=== PATIENT | female | born 1965 | race Caucasian/White ===

== ENCOUNTER 2016-08-19 14:07 | Observation (INO) ==
[2016-08-19] MEDS ORDERED: Ipratropium/Albuterol Neb 3 ML IH ONE (15:14)
[2016-08-19] MEDS ORDERED: Ondansetron 4 MG/2 ML VIAL IVP ONE (15:29)
--- NOTE | 2016-08-19 15:29 | Emergency Department Note ---
Disposition Clinical Impression: COPD with acute exacerbation, Chest pain, rule out acute myocardial infarction Dyspnea Qualifiers: Dyspnea type: shortness of breath Qualified Code(s): R06.02 - Shortness of breath Disposition: Admitted As Inpatient Condition: Critical SOB HPI - General Chief Complaint: ED Shortness of Breath/Dyspnea Stated Complaint: Multiple Complaints Time Seen by Provider: 08/19/16 15:00 Source: patient Limitations: no limitations Nursing Notes Reviewed: Yes Vital Signs Reviewed: Yes - History of Present Illness Mrs. Hendricks, 50-year-old female, presents from home by POV with chief complaint of difficulty breathing as well as left upper quadrant abdomen pain. Difficulty breathing began 2-3 days ago. Described as worse with exertion. Associated with nausea, dry cough. As her cough is progressed, she is developed rib pain which worsens with cough. Abdominal pain described as left upper quadrant and she motions to the lower left anterior ribs. Denies fever, chills, vomiting, changes in bowel or bladder. She previously needed to do half to 3 L O2 via nasal cannula supplemental at night however has been without for the last 1.5-2 years without difficulty. She is a full regimen of inhalers. PMH: Hypertension, hyperlipidemia, diabetes, previous MS, COPD, irritable bowel syndrome. PCP: Itzel Jorgensen - Related Data Home Medications Medication Instructions Recorded Confirmed Albuterol Sulfate [Ventolin Hfa] 2 puff IH Q4H PRN 08/19/16 08/19/16 Amitriptyline [Elavil] 25 mg PO HS 08/19/16 08/19/16 Aspirin Enteric Coated [Aspirin EC] 81 mg PO DAILY 08/19/16 08/19/16 Azelastine 0.1% Nasal [place] 1 spray NS BID 08/19/16 08/19/16 [Astelin] BuPROPion SR (12 HR) [Wellbutrin 150 mg PO BID 08/19/16 08/19/16 SR] Carvedilol [Coreg] 25 mg PO DAILY 08/19/16 08/19/16 Cholecalciferol (Vitamin D3) 10,000 unit PO QWEEK 08/19/16 08/19/16 [Vitamin D3] Docusate [Colace] 100 mg PO DAILY PRN 08/19/16 08/19/16 FLUoxetine HCl [Prozac] 40 mg PO QAM 08/19/16 08/19/16 Furosemide [Lasix] 20 mg PO DAILY 08/19/16 08/19/16 Levocetirizine Hcl 5 mg PO DAILY 08/19/16 08/19/16 Melatonin 6 mg PO HS 08/19/16 08/19/16 Metoprolol [Lopressor] 25 mg PO BID 08/19/16 08/19/16 Montelukast [Singulair] 10 mg PO HS 08/19/16 08/19/16 Nefazodone HCl 100 mg PO DAILY 08/19/16 08/19/16 OLANZapine [Zyprexa] 5 mg PO DAILY 08/19/16 08/19/16 Omeprazole [PriLOSEC] 20 mg PO BID 08/19/16 08/19/16 Polyethylene Glycol 3350 17 gm PO DAILY PRN 08/19/16 08/19/16 Polyvinyl Alcohol [Artificial 1 drop OP TID PRN 08/19/16 08/19/16 Tears] Promethazine [Phenergan] 25 mg PO BID PRN 08/19/16 08/19/16 Ranitidine HCl [Acid Food Preparation Kitchen Aide] 150 mg PO HS 08/19/16 08/19/16 Tiotropium [Spiriva] 18 mcg IH 0700 08/19/16 08/19/16 Allergies Allergy/AdvReac Type Severity Reaction Status Date / Time Oxytetracycline Allergy Swelling Verified 08/19/16 14:44 [From Terramycin] of Lip/Tongue/Throat All systems ED: reviewed and negative except as stated. Constitutional: Reports: weakness. Denies: fever, chills Cardiovascular: Reports: dyspnea on exertion, edema. Denies: chest pain, palpitations Respiratory: Reports: cough, dyspnea, wheezes. Denies: hemoptysis, stridor Gastrointestinal: Reports: abdominal pain, nausea. Denies: vomiting, hematemesis, melena, hematochezia Genitourinary: Denies: urgency, dysuria Musculoskeletal: Denies: back pain, neck pain Neurological: Reports: headache, weakness. Denies: numbness, paresthesias, confusion, abnormal gait, vertigo Past Medical History - Past Medical History Medical history: Reports: COPD, hyperlipidemia, hypertension Psychiatric history: Reports: anxiety, depression, PTSD - Social History Smoking Status: Current every day smoker Smokeless Tobacco Status: No Alcohol use: Reports: none Drug use: Reports: none Physical Exam Vital signs reviewed: Patient afebrile. Cardiac and pulmonary was elevated but not tachycardic and not tachypneic. O2 saturation appropriate with some oxygen. General: Patient is alert, oriented, and in no acute distress. No conversational dyspnea on supplemental oxygen. HEENT: No facial asymmetry. Head is normocephalic and atraumatic. Trachea midline. Cardiovascular: Heart regular rate and rhythm without clicks, rubs, gallops, or murmurs. No JVD. PMI nondisplaced. Respiratory: Symmetric chest rise with good respiratory effort. Bilateral breath sounds are clear without wheezing, crackles, or rhonchi. Tenderness anteriorly over patient's left inferior ribs. Abdomen: Morbidly obese. Bowel sounds present normoactive x-4 quadrants. Abdomen is soft, nondistended, and mildly tender in LUQ at the costal margin. No organomegaly noted. Musculoskeletal: Muscle strength 5/5 and symmetric bilaterally in upper and lower extremities. Psych: Patient's affect is appropriate for situation. - General Limitations: no limitations General appearance: alert Course Course Narrative: Dyspnea - suspect acute exacerbation COPD Acute chest pain - rule out ACS. She is not improved with IV Zofran. Lung sounds had diffuse wheeze prior to doing abs and improves to mild scant wheeze after. Her sensation of dyspnea did not improve with DuoNeb's. Patient's laboratory work is unremarkable; specifically no leukocytosis, no lateral abnormalities, negative troponin, normal BNP. EKG is concerning for possible mild ST elevation in inferior leads with ST depression septal leads. Chest x-ray unremarkable. Patient agrees to come into the hospital for continued workup and evaluation for dyspnea. Vital Signs Temperature 98.7 F 08/19/16 14:42 Pulse Rate 96 08/19/16 14:42 Respiratory Rate 18 08/19/16 14:42 Blood Pressure 118/81 08/19/16 14:42 O2 Sat by Pulse Oximetry 95 08/19/16 14:42 Temperature 97.4 F L 08/21/16 07:05 Pulse Rate 79 08/21/16 07:05 Respiratory Rate 10 08/21/16 07:05 Blood Pressure 126/80 08/21/16 07:05 O2 Sat by Pulse Oximetry 95 08/21/16 07:40 Oxygen Delivery Oxygen Delivery Nasal Cannula Shortness of Breath/Dyspnea - Medical Records Medical records reviewed: Yes I reviewed the patient's medical records. - Lab Data Lab results reviewed: Yes I reviewed the patient's lab results. Result diagrams: 08/20/16 02:51 08/21/16 06:28 Lab Results 08/19/16 08/19/16 08/19/16 Range/Units 15:20 15:20 15:20 WBC 10.6 (4.3-11.1) K/mcL RBC 4.10 (3.82-4.97) M/mcL Hgb 12.1 (11.5-15.4) g/dL Hct 37.2 (35.3-44.9) % MCV 90.7 (83.0-100.0) fL MCH 29.5 (28.0-33.3) pg MCHC 32.5 (31.6-35.5) g/dL RDW 13.3 (11.5-14.5) % Plt Count 262 (140-400) K/mcL MPV 9.9 (9.4-12.4) fL Immature Gran % 0.6 (0-4) % Seg Neutrophils % 74.0 % Lymphocytes % 11.1 % Monocytes % 13.6 % Eosinophils % 0.5 % Basophils % 0.2 % Neutrophils # 7.9 (1.6-8.9) K/mcL Lymphocytes # 1.2 (0.6-4.6) K/mcL Monocytes # 1.5 H (0.0-1.3) K/mcL Eosinophils # 0.1 (0.0-0.6) K/mcL Basophils # 0.0 (0.0-0.2) K/mcL Sodium 140 (136-145) mEq/L Potassium 4.0 (3.5-4.5) mEq/L Chloride 105 (98-109) mEq/L Carbon Dioxide 25 (19-29) mEq/L BUN 11 (7-20) mg/dL Creatinine 0.89 (0.57-1.11) mg/dL Est GFR ( Amer) > 60 (> 60) Est GFR (Non-Af Amer) > 60 (> 60) BUN/Creatinine Ratio 12 (6-26) Glucose 118 H (70-99) mg/dL Calculated Osmolality 290 (280-300) Calcium 9.4 (8.6-10.8) mg/dL Troponin I 0.00 (0-0.03) ng/mL B-Natriuretic Peptide (0-100) pg/mL Amylase 30 (25-125) Units/L Lipase 15 (8-78) Units/L 08/19/16 Range/Units 15:20 WBC (4.3-11.1) K/mcL RBC (3.82-4.97) M/mcL Hgb (11.5-15.4) g/dL Hct (35.3-44.9) % MCV (83.0-100.0) fL MCH (28.0-33.3) pg MCHC (31.6-35.5) g/dL RDW (11.5-14.5) % Plt Count (140-400) K/mcL MPV (9.4-12.4) fL Immature Gran % (0-4) % Seg Neutrophils % % Lymphocytes % % Monocytes % % Eosinophils % % Basophils % % Neutrophils # (1.6-8.9) K/mcL Lymphocytes # (0.6-4.6) K/mcL Monocytes # (0.0-1.3) K/mcL Eosinophils # (0.0-0.6) K/mcL Basophils # (0.0-0.2) K/mcL Sodium (136-145) mEq/L Potassium (3.5-4.5) mEq/L Chloride (98-109) mEq/L Carbon Dioxide (19-29) mEq/L BUN (7-20) mg/dL Creatinine (0.57-1.11) mg/dL Est GFR ( Amer) (> 60) Est GFR (Non-Af Amer) (> 60) BUN/Creatinine Ratio (6-26) Glucose (70-99) mg/dL Calculated Osmolality (280-300) Calcium (8.6-10.8) mg/dL Troponin I (0-0.03) ng/mL B-Natriuretic Peptide 17 (0-100) pg/mL Amylase (25-125) Units/L Lipase (8-78) Units/L - Radiology Data Radiology results reviewed: Yes I reviewed the patient's radiology results. - EKG Data EKG attestation: Yes I reviewed and interpreted this EKG. EKG results narrative: EKG dated 08/19/16 at 14:52 pronounced sinus rhythm with rate of 98. Normal intervals. 172, QRS 27, QT/QTC [address] depression with T- wave inversion in precordial leads V2-V5. No previous EKG for comparison. Attestation Statement - Attestation Attestation: I, Alec Brothers, examined this patient and my medical decision-making was reviewed with the BRANCH CHIEF/PA/Advanced Practice Nurse/Resident Physician. I agree with the documented findings, disposition and treatment plan as described except to the extent set forth below. 50 yo female presents with concerns of shortness of breath and chest pain. Pt states symptoms have been worsening for the past few days but became significantly worse yesterday. Patient reports pain to the bilateral lower chest which is worse with coughing. Initial troponin negative. Patient has EKG which shows minimal ST depressions in the lateral leads. Patient will be admitted to the hospital for further care and evaluation of her chest pain and shortness of breath.
[2016-08-19 15:32] LABS: Basophils % 0.2 %; Eosinophils # 0.1 K/mcL (0.0-0.6); Eosinophils % 0.5 %; Hematocrit 37.2 % (35.3-44.9); Hemoglobin 12.1 g/dL (11.5-15.4); Immature Granulocytes % 0.6 % (0-4); Lymphocytes # 1.2 K/mcL (0.6-4.6); Lymphocytes % 11.1 %; Mean Corpuscular HGB Conc 32.5 g/dL (31.6-35.5); Mean Corpuscular Hemoglobin 29.5 pg (28.0-33.3); Mean Corpuscular Volume 90.7 fL (83.0-100.0); Mean Platelet Volume 9.9 fL (9.4-12.4); Monocytes # 1.5 K/mcL (0.0-1.3); Monocytes % 13.6 %; Neutrophils # 7.9 K/mcL (1.6-8.9); Platelet Count 262 K/mcL (140-400); Red Cell Distribution Width 13.3 % (11.5-14.5)
[2016-08-19 15:44] LABS: BUN/Creatinine Ratio 12 (6-26); Blood Urea Nitrogen 11 mg/dL (7-20); Calcium 9.4 mg/dL (8.6-10.8); Carbon Dioxide 25 mEq/L (19-29); Chloride 105 mEq/L (98-109); Glucose 118 mg/dL (70-99); Osmolality,Calculated 290 (280-300); Sodium 140 mEq/L (136-145); eGFR For African Americans > 60 (> 60); eGFR For Non-African Americans > 60 (> 60)
[2016-08-19] MEDS ORDERED: Aspirin 81 MG TAB.CHEW PO ONE (16:11)
[2016-08-19] MEDS ORDERED: methylPREDNISolone 125 MG/2 ML VIAL IVP ONE (16:12)
[2016-08-19] MEDS ORDERED: Naloxone 0.4 MG/ML INJ IVP PRN (18:02)
[2016-08-19] MEDS ORDERED: *HR* Heparin 5,000 UNIT/ML VIAL IVP ONE (18:15)
[2016-08-19] MEDS ORDERED: *HR* Heparin 5,000 UNIT/ML VIAL IVP PRN ×2 (18:15)
[2016-08-19] MEDS ORDERED: Heparin 25,000 UNIT/500 ML D5W 25,000 UNIT/500 ML MLS IVC SCH (18:15)
--- NOTE | 2016-08-19 18:30 | Internal Med History&Physical ---
Date of Encounter: 08/19/16 Time of Encounter: 18:27 Assessment and Plan (1) Dyspnea Current visit: Yes Status: Acute Patient reporting increasing shortness of breath over the last few days. She reports feeling like she has increased swelling in her extremities as well. CXR shows no acute cardiopulmonary process. EKG shows mild ST elevation in inferior leads. troponin 0.00, BNP 17. Trace BLE edema. Expiratory wheeze. Patient reports feeling somewhat better after duoneb treatment in ED. COPD exacerbation vs. CHF vs. ACS. Lasix 40mg IVP daily Repeat EKG D-dimer pending, if elevated will get CTA Duoneb treatments QID Heparin drip for possible ACS given ST changes on EKG Cardiology consult, discussed with Dr. Renee. echocardiogram in the morning. Qualifiers: Dyspnea type: shortness of breath Qualified Code(s): R06.02 - Shortness of breath (2) COPD with acute exacerbation Current visit: Yes Status: Acute Patient with COPD. Increased shortness of breath over the last several days. CXR shows no acute cardiopulmonary disease. Expiratory wheeze on exam. 125mg of solumedrol given in ED Duoneb treatments QID continue home dose of spiriva and singulair. titrate oxygen to maintain O2 saturation > 92% (3) Chest pain, rule out acute myocardial infarction Current visit: Yes Status: Acute Patient with increasing shortness of breath, chest pain since yesterday. EKG shows ST changes. Cardiology consulted, discussed with Dr. Renee. Will get another stat EKG and send EKG images to Dr. Renee for her review. Heparin drip for ACS serial troponins continuous radio message router. echocardiogram in the morning. (4) Smoker Current visit: Yes Status: Acute Patient trying to quit, down to 1 cigarette daily. Offered encouragement. smoking cessation education ordered. (5) DVT prophylaxis Current visit: Yes Status: Acute anti-embolic stockings heparin drip for suspected ACS. Internal Medicine - H&P: HPI Chief complaint: shortness of breath, chest pain Admitted From: Emergency Dept Plans for Post Hospital Care: Home History of present illness: Ms. Hendricks is a 50 year old female with hypertension, hyperlipidemia, COPD, IBS , sleep apnea, who presented to the emergency department today with complaints of shortness of breath and chest pain. Patient reports shortness of breath she started noticing about 3 days ago along with increased swelling in her extremities. She reports that chest pain developed yesterday and is constant pressure sensation that sometimes gets worse and gets better but never goes away. She has occasional numbness and tingling in her fingers, and she reports generalized weakness in her extremities. She also reports fever, chills, sweats , nausea, vomiting. She reports left upper quadrant pain she describes as crawling burning, and is tender to palpation. She reports occasional headaches , lightheadedness and palpitations. Evaluation in emergency department included an EKG which showed slight ST elevation in the inferior leads and ST depression in anterior leads. Troponin was negative at 0.0, BNP was normal at 17. D-dimer was ordered and is pending. Chest x-ray showed no acute cardiopulmonary process. She was given DuoNeb treatment and reports feeling little better. On exam, patient is alert and oriented, in no acute distress. Heart has regular rate and rhythm, lungs have slight expiratory wheeze. Past Med Surg Social Fam HX - Past Medical History Medical history: COPD, GERD, hyperlipidemia, hypertension Psychiatric history: anxiety, depression, PTSD - Past Surgical History Surgical History: , hysterectomy - Social History Smoking Status: Former smoker Smokeless Tobacco Status: No Alcohol use: none (previous heavy use, clean since 01/2016) Drug use: none (history of drug abuse - sober since 01/2016) - Family History Mother Living Status: Age at : 67 Cause of : COPD Hx Family Respiratory Disorders: Yes Father Living Status: Age at : 54 Cause of : GA Hx Family Cardiac Disorders: Yes Internal Medicine - H&P: Meds Albuterol Sulfate [Ventolin Hfa] 2 puff IH Q4H PRN 08/19/16 [History] Amitriptyline [Elavil] 25 mg PO HS 08/19/16 [History] Aspirin Enteric Coated [Aspirin EC] 81 mg PO DAILY 08/19/16 [History] Azelastine 0.1% Nasal [place] [Astelin] 1 spray NS BID 08/19/16 [History] BuPROPion SR (12 HR) [Wellbutrin SR] 150 mg PO BID 08/19/16 [History] Carvedilol [Coreg] 25 mg PO DAILY 08/19/16 [History] Cholecalciferol (Vitamin D3) [Vitamin D3] 10,000 unit PO QWEEK 08/19/16 [History ] Docusate [Colace] 100 mg PO DAILY PRN 08/19/16 [History] FLUoxetine HCl [Prozac] 40 mg PO QAM 08/19/16 [History] Furosemide [Lasix] 20 mg PO DAILY 08/19/16 [History] Levocetirizine Hcl 5 mg PO DAILY 08/19/16 [History] Melatonin 6 mg PO HS 08/19/16 [History] Metoprolol [Lopressor] 25 mg PO BID 08/19/16 [History] Montelukast [Singulair] 10 mg PO HS 08/19/16 [History] Nefazodone HCl 100 mg PO DAILY 08/19/16 [History] OLANZapine [Zyprexa] 5 mg PO DAILY 08/19/16 [History] Omeprazole [PriLOSEC] 20 mg PO BID 08/19/16 [History] Polyethylene Glycol 3350 17 gm PO DAILY PRN 08/19/16 [History] Polyvinyl Alcohol [Artificial Tears] 1 drop OP TID PRN 08/19/16 [History] Promethazine [Phenergan] 25 mg PO BID PRN 08/19/16 [History] Ranitidine HCl [Acid Review Nurse] 150 mg PO HS 08/19/16 [History] Tiotropium [Spiriva] 18 mcg IH 0700 08/19/16 [History] Allergies Oxytetracycline [From Terramycin] Allergy (Verified 08/19/16 14:44) Swelling of Lip/Tongue/Throat All Systems PM: A 10-system review of systems was performed and is negative for pertinent findings except as documented above in the HPI. - Constitutional Constitutional: chills, fever(s), night sweats - EENT Eyes: no change in vision, no discharge, no pain, no photophobia Ears: no ear discharge, no ear pain, no tinnitus Nose, mouth and throat: no dysphagia, no nasal discharge, no neck pain, no sore throat - Cardiovascular Cardiovascular ROS IM: chest pain, dyspnea, lightheadedness, palpitations, no diaphoresis, no syncope - Respiratory Respiratory: dyspnea, wheezing, no cough, no excessive phlegm production - Gastrointestinal Gastrointestinal: nausea, vomiting, no abdominal pain, no diarrhea, no hematemesis, no hematochezia, no melena - Genitourinary Genitourinary: no change in urinary stream, no dysuria, no flank pain, no hematuria - Musculoskeletal Musculoskeletal ROS IM: numbness (on and off in fingers), tingling (on and off in fingers) - Integumentary Integumentary IM: no rash, no unusual bruising - Neurological Neurological ROS: no confusion, no convulsions, no focal weakness, no numbness, no tingling, no tremor(s) - Hematologic/Lymphatic Hematologic/Lymphatic: no easy bruising - Constitutional Vitals: Temp Pulse Resp BP Pulse Ox 98.0 F 93 18 125/85 93 08/19/16 17:39 08/19/16 17:39 08/19/16 17:39 08/19/16 17:39 08/19/16 17:39 General appearance: Present: A&O X 3, pleasant, no acute distress - Head Head exam: Present: atraumatic, normocephalic - Eye Eye exam: Present: PERRL, conjuntiva pink, sclera anicteric Pupils: Present: PERRL - Neck Neck exam general surgery: Present: supple, trachea midline. Absent: lymphadenopathy - Respiratory Respiratory exam: Present: wheezes (expiratory). Absent: accessory muscle use, rales, rhonchi - Cardiovascular Cardiovascular exam: Present: RRR, +S1, +S2. Absent: diastolic murmur, gallop, rubs, systolic murmur - GI/Abdominal GI/Abdominal exam: Present: normal bowel sounds, soft, no peritoneal signs. Absent: distended, tenderness - Extremities Exam Extremities exam: Present: pedal edema (trace BLE), warm, radial pulses palpable and symetrical. Absent: calf tenderness, cyanotic - Neurological Exam Neurological exam: Present: CN II-XII intact, oriented X3, no focal deficits. Absent: facial droop, speech deficit - Skin Skin exam: Present: dry, intact, rash (LUQ) Internal Med - H&P Results - Labs CBC & Chem 7: 08/19/16 15:20 08/19/16 15:20 Labs: All Lab Results (24 Hours) 08/19/16 08/19/16 08/19/16 Range/Units 15:20 15:20 15:20 WBC 10.6 (4.3-11.1) K/mcL RBC 4.10 (3.82-4.97) M/mcL Hgb 12.1 (11.5-15.4) g/dL Hct 37.2 (35.3-44.9) % MCV 90.7 (83.0-100.0) fL MCH 29.5 (28.0-33.3) pg MCHC 32.5 (31.6-35.5) g/dL RDW 13.3 (11.5-14.5) % Plt Count 262 (140-400) K/mcL MPV 9.9 (9.4-12.4) fL Immature Gran % 0.6 (0-4) % Seg Neutrophils % 74.0 % Lymphocytes % 11.1 % Monocytes % 13.6 % Eosinophils % 0.5 % Basophils % 0.2 % Neutrophils # 7.9 (1.6-8.9) K/mcL Lymphocytes # 1.2 (0.6-4.6) K/mcL Monocytes # 1.5 H (0.0-1.3) K/mcL Eosinophils # 0.1 (0.0-0.6) K/mcL Basophils # 0.0 (0.0-0.2) K/mcL Sodium 140 (136-145) mEq/L Potassium 4.0 (3.5-4.5) mEq/L Chloride 105 (98-109) mEq/L Carbon Dioxide 25 (19-29) mEq/L BUN 11 (7-20) mg/dL Creatinine 0.89 (0.57-1.11) mg/dL Est GFR ( Amer) > 60 (> 60) Est GFR (Non-Af Amer) > 60 (> 60) BUN/Creatinine Ratio 12 (6-26) Glucose 118 H (70-99) mg/dL Calculated Osmolality 290 (280-300) Calcium 9.4 (8.6-10.8) mg/dL Troponin I 0.00 (0-0.03) ng/mL B-Natriuretic Peptide (0-100) pg/mL 08/19/ Range/Units 15:20 WBC (4.3-11.1) K/mcL RBC (3.82-4.97) M/mcL Hgb (11.5-15.4) g/dL Hct (35.3-44.9) % MCV (83.0-100.0) fL MCH (28.0-33.3) pg MCHC (31.6-35.5) g/dL RDW (11.5-14.5) % Plt Count (140-400) K/mcL MPV (9.4-12.4) fL Immature Gran % (0-4) % Seg Neutrophils % % Lymphocytes % % Monocytes % % Eosinophils % % Basophils % % Neutrophils # (1.6-8.9) K/mcL Lymphocytes # (0.6-4.6) K/mcL Monocytes # (0.0-1.3) K/mcL Eosinophils # (0.0-0.6) K/mcL Basophils # (0.0-0.2) K/mcL Sodium (136-145) mEq/L Potassium (3.5-4.5) mEq/L Chloride (98-109) mEq/L Carbon Dioxide (19-29) mEq/L BUN (7-20) mg/dL Creatinine (0.57-1.11) mg/dL Est GFR ( Amer) (> 60) Est GFR (Non-Af Amer) (> 60) BUN/Creatinine Ratio (6-26) Glucose (70-99) mg/dL Calculated Osmolality (280-300) Calcium (8.6-10.8) mg/dL Troponin I (0-0.03) ng/mL B-Natriuretic Peptide 17 (0-100) pg/mL - Diagnostic Studies Chest x-ray Additional comments: Chest X-Ray 08/19/16 15:14 IMPRESSION: No acute cardiopulmonary process. D/ / 08/19/2016 16:08:29 Pernell Pitt MD / [email or web address] Interpreting Provider: Pernell Pitt MD
[2016-08-19] MEDS ORDERED: traMADol 50 MG TABLET PO PRN (18:37)
[2016-08-19] MEDS ORDERED: Acetaminophen 325 MG TABLET PO PRN (18:37)
--- NOTE | 2016-08-19 18:55 | Event Note ---
Date of Encounter: 08/19/16 Time of Encounter: 18:21 Patient seen and examined with nurse practitioner. Mild COPD exacerbation and diastolic CHF. We will get IV Lasix [id number] nebulizer treatments. Electrocardiogram shows subtle ST segment elevation in the inferior leads and ST segment depression in V2 to V-6. No prior EKG to compare. She had a coronary angiography 3 years ago that she showed no occlusive disease. Will rule out pulmonary embolism. Cardiology consultation
[2016-08-19] MEDS: Furosemide 40 MG/4 ML VIAL IVP SCH (18:57)
[2016-08-19] MEDS: Cholecalciferol (D-3) 1,000 UNIT TABLET PO SCH (18:57)
[2016-08-19 18:59] LABS: Amylase 30 Units/L (25-125); Lipase 15 Units/L (8-78)
--- NOTE | 2016-08-19 19:27 | Event Note ---
Date of Encounter: 08/19/16 Time of Encounter: 19:25 [address]ed E[address] results [address] Renee in cardiology. She stated that given the EKG shows Q waves in III and AvF, the RI is of indeterminate age, and not acute. Also, as there are no dynamic changes between the EKG at 14:50 and at 18 :56, and the troponin is negative, she does not feel this represents an acute RI.
[2016-08-19 19:35] LABS: INR 1.1; Prothrombin Time 12.1 Seconds (9.4-12.1)
[2016-08-19 19:38] LABS: Activated Partial Thrombo Time 36.3 Seconds (26.0-36.0)
[2016-08-19] MEDS: Famotidine 20 MG TABLET PO SCH (19:55)
[2016-08-19] MEDS: BuPROPion SR (12 HR) 150 MG TABLET PO SCH (19:55)
[2016-08-19] MEDS: Melatonin 3 MG TABLET PO SCH (19:55)
[2016-08-19] MEDS: Ipratropium/Albuterol Neb 3 ML IH SCH ×2 (20:11→23:18)
[2016-08-19] MEDS ORDERED: Nitroglycerin 0.4 MG TAB.SUBL SL PRN (20:18)
[2016-08-19] MEDS: *HR* Morphine 2 MG/ML SYRINGE IVP PRN (20:58)
[2016-08-19] MEDS: *HR* HYDROcodone/Acet 5/325 mg TABLET PO PRN (22:03)
--- NOTE | 2016-08-20 00:33 | Event Note ---
Date of Encounter: 08/20/16 Time of Encounter: 00:31 CTA ordered for elevated D-dimer. CTA negative for PE, but did show LLL airspace disease consistent with pneumonia. Azithromycin and Rocephin started.
[2016-08-20] MEDS: *HR* Morphine 2 MG/ML SYRINGE IVP PRN ×6 (01:21→22:04)
[2016-08-20] MEDS: Azithromycin 500 MG in D5% in Water 250 ML IVPB SCH (01:53)
[2016-08-20 02:56] LABS: Basophils % 0.1 %; Hematocrit 36.9 % (35.3-44.9); Hemoglobin 11.9 g/dL (11.5-15.4); Immature Granulocytes % 0.5 % (0-4); Lymphocytes # 0.5 K/mcL (0.6-4.6); Mean Corpuscular HGB Conc 32.2 g/dL (31.6-35.5); Mean Corpuscular Hemoglobin 29.4 pg (28.0-33.3); Mean Corpuscular Volume 91.1 fL (83.0-100.0); Mean Platelet Volume 9.9 fL (9.4-12.4); Monocytes # 0.2 K/mcL (0.0-1.3); Monocytes % 2.4 %; Neutrophils # 6.9 K/mcL (1.6-8.9); Platelet Count 231 K/mcL (140-400); Red Blood Count 4.05 M/mcL (3.82-4.97); Red Cell Distribution Width 13.2 % (11.5-14.5)
[2016-08-20 03:10] LABS: BUN/Creatinine Ratio 14 (6-26); Blood Urea Nitrogen 14 mg/dL (7-20); Calcium 9.9 mg/dL (8.6-10.8); Carbon Dioxide 23 mEq/L (19-29); Chloride 100 mEq/L (98-109); Glucose 223 mg/dL (70-99); Osmolality,Calculated 289 (280-300); Sodium 136 mEq/L (136-145); eGFR For African Americans > 60 (> 60); eGFR For Non-African Americans > 60 (> 60)
[2016-08-20] MEDS: Ipratropium/Albuterol Neb 3 ML IH SCH ×4 (04:32→22:21)
[2016-08-20] MEDS: BuPROPion SR (12 HR) 150 MG TABLET PO SCH ×2 (07:49→21:15)
[2016-08-20] MEDS: *HR* HYDROcodone/Acet 5/325 mg TABLET PO PRN ×3 (07:49→23:15)
[2016-08-20] MEDS: Cholecalciferol (D-3) 1,000 UNIT TABLET PO SCH (07:50)
[2016-08-20] MEDS: FLUoxetine 20 MG CAPSULE PO SCH (07:50)
[2016-08-20] MEDS: Aspirin Enteric Coated 81 MG Tablet PO SCH (07:50)
[2016-08-20] MEDS: Tiotropium 18 MCG inhalation IH SCH (08:01)
[2016-08-20] MEDS ORDERED: Perflutren Lipid Microsphere 1.3 ML in 0.9 % Sodium Chloride 8.7 ML IVP ONE (09:07)
[2016-08-20] MEDS: Furosemide 40 MG/4 ML VIAL IVP SCH (10:24)
--- NOTE | 2016-08-20 15:18 | ECHO - Doppler Report ---
Echocardiogram Name: Noni Hendricks Date of Study: 08/20/2016 Date: 1965 Ht: 64.0 in Medical Record#: [id number] Age: 50 Wt: 242.0 lb Gender: Female BSA: 2.12 Order #: [id number] Location: [facility] Room #: 3B37 Reading Physician: Fredo Taylor MD, [facility] Clinic Mgr: Zan Garber Ordering Physician: Jimena Kumar CNP Primary Physician: Go Jorgensen DO Indications: Chest pain, Shortness of breath Impressions: Normal LV systolic function, LVEF 65%. Normal right ventricular size and function. No evidence of pulmonary hypertension. No significant valvular dysfunction. Left Ventricular Wall Motion: Rest Echo Findings All wall segments showed normal motion. Findings: Study Quality * Suboptimal echo windows. ECG Findings * Normal sinus rhythm. Left Ventricle * Normal LV systolic function, LVEF 65%. * Normal LV chamber size and wall thickness. * Indeterminate diastolic function. Right Ventricle * Normal right ventricular size and function. Left Atrium * Normal left atrial size. Right Atrium * Normal right atrial size. Aorta * Normally sized aortic root. Pericardium * There is no pericardial effusion present. IVC * The IVC was not visualized. Aortic Valve * Aortic valve not well visualized. * No aortic stenosis. * No aortic regurgitation. Mitral Valve * Normal mitral valve structure. * No mitral stenosis. * Trace mitral regurgitation. Tricuspid Valve * Tricuspid valve not well visualized. * No tricuspid stenosis. * Trace tricuspid regurgitation. * No evidence of pulmonary hypertension. Pulmonic Valve * Pulmonic valve not well visualized. * No pulmonic stenosis. * No pulmonic regurgitation. History Hypertension Diabetes Hypercholesteremia Years 20 Packs 1 Family History of CAD Measurements: BP: 133/ 94 2D Normal Values RVIDd: 3.00 cm IVSd: 1.00 cm 0.6 - 1.0 cm LVIDd: 4.30 cm 3.7 - 5.6 cm LVPWd: .80 cm 0.6 - 1.1 cm LVIDs: 2.50 cm 1.5 - 3.6 cm AO: 2.60 cm < 4.0 cm LA volume: 36 Tricuspid Valve TV Regurg Peak Grad: 22.00mmHg TV Regurg Peak [place]: 2.36m/sec Updated by Fredo Taylor MD, [facility] on 08/20/2016 3:11:28 PM electronically signed on 08/20/2016 3:11:52 PM with status of Final Wall Motion Max: 1=Normal, 2=Hypokinesis, 3=Akinesis, 4=Dyskinesis, 5=Aneurysmal, 6=Hyperkinetic, X=Not Visualized (Blank)=Missing
--- NOTE | 2016-08-20 16:52 | Electrocardiograph Report ---
[address] [place] [address] Test Date: 2016-08-19 Pat Name: Noni Hendricks Department: 103 Room: 3B37 Gender: F Costume Specialist: TIANA : 1965 Requested By: Alec Brothers Order Number: [id number] Reading MD: Rowdy Gupta MD Measurements Intervals [place] Rate: 98 P: 28 MN: 172 QRS: 40 QRSD: 97 T: 77 QT: 340 QTc: 395 Interpretive Statements SINUS RHYTHM PROBABLE INFERIOR MYOCARDIAL INFARCTION, PROBABLY OLD Electronically Signed On 08-20-2016 16:51:12 EDT by Rowdy Gupta MD
--- NOTE | 2016-08-20 17:01 | Electrocardiograph Report ---
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
--- NOTE | 2016-08-20 17:22 | Internal Med Progress Note ---
Date of Encounter: 08/20/16 Time of Encounter: 16:00 - Assessment and plan (1) COPD with acute exacerbation Current Visit: Yes Status: Acute Assessment and plan: Examination more consistent with fluid overload and diastolic heart failure exacerbation however patient has few, scattered wheezes. Continue breathing treatments. Elevated d-dimer noted however CTA unremarkable and essentially ruled out a PE. CTA also revealed left lower lobe airspace disease consistent with pneumonia. We will continue azithromycin and ceftriaxone. Patient is tolerating room air. No indication for mucolytics or steroids at this time. ITS Impressions Chest X-Ray 08/19/16 15:14 IMPRESSION: No acute cardiopulmonary process. D/ / 08/19/2016 16:08:29 Pernell Pitt MD / [email or web address] Interpreting Provider: Pernell Pitt MD Chest CTA 08/19/16 21:50 IMPRESSION: No evidence of a pulmonary embolus. Airspace disease in the superior segment of the left lower lobe consistent with pneumonia. This disease is new from 08/02/2016. Few mildly prominent left hilar lymph nodes are likely reactive. D/ / Donald Drummond MD / Donald Drummond MD Interpreting Provider: Donald Drummond MD (2) Diastolic heart failure Current Visit: Yes Status: Chronic Assessment and plan: Acute on chronic diastolic heart failure with preserved ejection fraction. Patient is on furosemide at home, diuresing with IV furosemide. Pedal edema has lessened and is currently 1+ pitting bilaterally. Her shortness of breath is also improving but she is not yet back to her baseline. She is tolerating room air well. We will continue to diurese and likely discharge tomorrow pending clinical outcomes. Echocardiogram impressions: Normal LV systolic function, LVEF 65%. Normal right ventricular size and function. No evidence of pulmonary hypertension. No significant valvular dysfunction. (3) CAP (community acquired pneumonia) Current Visit: Yes Status: Acute Assessment and plan: CTA consistent with left lower lobe pneumonia. No recent admissions. Likely community-acquired of unknown etiology. Continue azithromycin and ceftriaxone. (4) Chest pain, rule out acute myocardial infarction Current Visit: Yes Status: Resolved Assessment and plan: Patient denies chest pain. ECGs were reviewed per cardiology-no acute processes and low suspicion for acute coronary syndrome. Troponin negative 3. (5) Smoker Current Visit: Yes Status: Resolved Assessment and plan: She states she stopped smoking last year. (6) DVT prophylaxis Current Visit: Yes Status: Acute Assessment and plan: Subcutaneous heparin (7) Morbid obesity with BMI of 40.0-44.9, adult Current Visit: Yes Status: Chronic Assessment and plan: Patient stating she has gained a lot of weight since she stopped smoking and doing drugs last year. She is requesting for references regarding physical therapy or any other exercise modalities that her insurance would cover, we will bring manager social responsibility on board for resources. - Subjective Interval history: Patient seen and examined. On examination, patient sitting upright in bed watching television. Patient stating her shortness of breath has improved. She states the swelling her legs is also improved. She states she is not back to her baseline yet but is feeling better. She states she is eating well. She has a lot of concerns and questions regarding possible heart failure diagnosis. - Constitutional Vitals: Temp Pulse Resp BP Pulse Ox 97.5 F L 86 12 128/91 95 08/20/16 15:34 08/20/16 15:34 08/20/16 16:36 08/20/16 15:34 08/20/16 16:36 General appearance: Present: A&O X 3, morbidly obese, pleasant, no acute distress, answers questions appropriately - Head Head exam: Present: atraumatic, normocephalic - Eye Eye exam: Present: PERRL, conjuntiva pink, sclera anicteric Pupils: Present: PERRL - Neck Neck exam general surgery: Present: supple, trachea midline. Absent: lymphadenopathy - Respiratory Respiratory exam: Present: decreased breath sounds, rhonchi (Few, scattered). Absent: accessory muscle use, rales, respiratory distress, wheezes - Cardiovascular Cardiovascular exam: Present: RRR, +S1, +S2. Absent: diastolic murmur, gallop, rubs, systolic murmur - GI/Abdominal GI/Abdominal exam: Present: normal bowel sounds, soft, no peritoneal signs. Absent: distended, tenderness - Extremities Exam Extremities exam: Present: pedal edema (1+ pitting bilaterally), warm, radial pulses palpable and symetrical. Absent: calf tenderness, cyanotic - Neurological Exam Neurological exam: Present: alert, CN II-XII intact, normal gait, oriented X3, no focal deficits, strengths equal and symetr throughout. Absent: pronater drift, facial droop, speech deficit - Skin Skin exam: Present: dry, intact, normal color, warm Internal Medicine: Result - Labs CBC & Chem 7: 08/20/16 02:51 08/20/16 02:51 Labs: Short CBC 08/20/16 Range/Units 02:51 WBC 7.6 (4.3-11.1) K/mcL Hgb 11.9 (11.5-15.4) g/dL Hct 36.9 (35.3-44.9) % Plt Count 231 (140-400) K/mcL Neutrophils # 6.9 (1.6-8.9) K/mcL BMP 08/20/16 02:51 Sodium 136 Potassium 4.0 Chloride 100 Carbon Dioxide 23 BUN 14 Creatinine 0.97 Glucose 223 H Calcium 9.9 Cardiac Enzymes 08/19/16 08/20/16 Range/Units 21:21 02:51 Troponin I 0.00 0.00 (0-0.03) ng/mL - ABG Interpretation ABG results: PT/INR, D-dimer PT 12.1 Seconds (9.4-12.1) 08/19/16 19:18 D-Dimer 634 ng/mLFEU (0-500) H 08/19/16 19:18 - Impressions Impressions Chest CTA 08/19/16 21:50 IMPRESSION: No evidence of a pulmonary embolus. Airspace disease in the superior segment of the left lower lobe consistent with pneumonia. This disease is new from 08/02/2016. Few mildly prominent left hilar lymph nodes are likely reactive. D/ / Donald Drummond MD / Donald Drummond MD Interpreting Provider: Donald Drummond MD Consult Discharge Plan - Plan Referrals: Itzel Jorgensen, GRAIN CLEANER AND TRANSFER OPERATOR [Primary Care Provider] - 08/25/16 11:00 am
[2016-08-20] MEDS: *HR* Heparin 5,000 UNIT/ML VIAL SQ SCH (17:44)
[2016-08-20] MEDS: Famotidine 20 MG TABLET PO SCH (21:15)
[2016-08-20] MEDS: Melatonin 3 MG TABLET PO SCH (21:16)
[2016-08-21] MEDS: Azithromycin 500 MG in D5% in Water 250 ML IVPB SCH (01:45)
[2016-08-21] MEDS: *HR* Morphine 2 MG/ML SYRINGE IVP PRN ×3 (02:28→13:42)
[2016-08-21] MEDS: Ipratropium/Albuterol Neb 3 ML IH SCH ×3 (04:13→15:42)
[2016-08-21] MEDS: *HR* HYDROcodone/Acet 5/325 mg TABLET PO PRN (06:03)
[2016-08-21] MEDS: *HR* Heparin 5,000 UNIT/ML VIAL SQ SCH (06:03)
[2016-08-21 07:25] LABS: BUN/Creatinine Ratio 21 (6-26); Blood Urea Nitrogen 19 mg/dL (7-20); Calcium 9.7 mg/dL (8.6-10.8); Carbon Dioxide 31 mEq/L (19-29); Chloride 97 mEq/L (98-109); Glucose 91 mg/dL (70-99); Osmolality,Calculated 286 (280-300); Potassium 3.4 mEq/L (3.5-4.5); Sodium 137 mEq/L (136-145); eGFR For African Americans > 60 (> 60); eGFR For Non-African Americans > 60 (> 60)
[2016-08-21] MEDS: Furosemide 40 MG/4 ML VIAL IVP SCH (07:42)
[2016-08-21] MEDS: FLUoxetine 20 MG CAPSULE PO SCH (07:43)
[2016-08-21] MEDS: BuPROPion SR (12 HR) 150 MG TABLET PO SCH (07:43)
[2016-08-21] MEDS: Cholecalciferol (D-3) 1,000 UNIT TABLET PO SCH (07:44)
[2016-08-21] MEDS: Aspirin Enteric Coated 81 MG Tablet PO SCH (07:44)
[2016-08-21] MEDS: Tiotropium 18 MCG inhalation IH SCH (08:09)
[2016-08-21] MEDS ORDERED: OLANZapine 5 MG TAB.RAPDIS PO SCH (09:00)
[2016-08-21 12:15] VITALS: BP 98/63
--- NOTE | 2016-08-21 13:27 | Discharge Summary ---
Date of Encounter: 08/21/16 Time of Encounter: 10:30 - Discharge Diagnosis (1) COPD with acute exacerbation Priority: Primary Status: Resolved Comments: Patient denies shortness of breath above her normal day of discharge. (2) Diastolic heart failure Priority: Secondary Status: Chronic Comments: Successfully diuresed with IV furosemide. We will continue her home dosing of furosemide and she has been educated on sodium and fluid restricted diets Qualifiers: Heart failure chronicity: acute on chronic Qualified Code(s): I50.33 - Acute on chronic diastolic (congestive) heart failure (3) CAP (community acquired pneumonia) Priority: Primary Status: Acute Comments: CTA consistent with left lower lobe pneumonia. No recent admissions. Likely community-acquired of unknown etiology. Received azithromycin and ceftriaxone while admitted- sending home on levofloxacin (4) Chest pain, rule out acute myocardial infarction Priority: Primary Status: Resolved (5) Smoker Priority: Secondary Status: Resolved Comments: patient states she stopped smoking last year (6) DVT prophylaxis Priority: Primary Status: Acute Comments: Subcutaneous heparin while admitted (7) Morbid obesity with BMI of 40.0-44.9, adult Priority: Secondary Status: Chronic - Discharge Medications Prescriptions: Levofloxacin [Levaquin] 750 mg PO DAILY #7 tablet Home Medications: Albuterol Sulfate [Ventolin Hfa] 2 puff IH Q4H PRN 08/19/16 [History] Amitriptyline [Elavil] 25 mg PO HS 08/19/16 [History] Aspirin Enteric Coated [Aspirin EC] 81 mg PO DAILY 08/19/16 [History] Azelastine 0.1% Nasal [place] [Astelin] 1 spray NS BID 08/19/16 [History] BuPROPion SR (12 HR) [Wellbutrin SR] 150 mg PO BID 08/19/16 [History] Carvedilol [Coreg] 25 mg PO DAILY 08/19/16 [History] Cholecalciferol (Vitamin D3) [Vitamin D3] 10,000 unit PO QWEEK 08/19/16 [History ] Docusate [Colace] 100 mg PO DAILY PRN 08/19/16 [History] FLUoxetine HCl [Prozac] 40 mg PO QAM 08/19/16 [History] Furosemide [Lasix] 20 mg PO DAILY 08/19/16 [History] Levocetirizine Hcl 5 mg PO DAILY 08/19/16 [History] Melatonin 6 mg PO HS 08/19/16 [History] Metoprolol [Lopressor] 25 mg PO BID 08/19/16 [History] Montelukast [Singulair] 10 mg PO HS 08/19/16 [History] Nefazodone HCl 100 mg PO DAILY 08/19/16 [History] OLANZapine [Zyprexa] 5 mg PO DAILY 08/19/16 [History] Omeprazole [PriLOSEC] 20 mg PO BID 08/19/16 [History] Polyethylene Glycol 3350 17 gm PO DAILY PRN 08/19/16 [History] Polyvinyl Alcohol [Artificial Tears] 1 drop OP TID PRN 08/19/16 [History] Promethazine [Phenergan] 25 mg PO BID PRN 08/19/16 [History] Ranitidine HCl [Acid Industrial Boilermaker] 150 mg PO HS 08/19/16 [History] Tiotropium [Spiriva] 18 mcg IH 0700 08/19/16 [History] Levofloxacin [Levaquin] 750 mg PO DAILY #7 tablet 08/21/16 [Rx] Allergies/Adverse Reactions: Allergies Oxytetracycline [From Terramycin] Allergy (Verified 08/19/16 14:44) Swelling of Lip/Tongue/Throat Procedures/tests Complete & Pending: Procedures Performed prior 72 hours Category Date Time Status CT angio chest [CT] Stat Cat Scan 08/19/16 21:50 Completed EKG [ECG 12 lead ECG] [ECG] Stat Y 08/19/16 18:35 Completed EV echocardiogram Routine Y 08/20/16 18:17 Completed Date of admission: 08/19/16 17:00 Primary care physician: Itzel Jorgensen CNP Consults: 08/20/16 17:25 Consult to Senior Vice President & General Counsel [CONS] Routine Reason for SW Consult: patient with recent cessation of alcohol, tobacco, and other elicit drugs. Has gained a lot of weight and wants resources on exercise modalities and possibly cardiac rehab that are covered by insurance Discharging clinician: Yara Richardson Anticipated date of discharge: 08/21/16 - Patient Status Disposition: Home, Self-Care Condition: Good Functional capacity at discharge: independent ambulation Overall status at discharge: patient is back to baseline - Discharge Instructions Follow Up With: Itzel Jorgensen CNP [Primary Care Provider] - 08/25/16 11:00 am Additional Instructions: Follow-up with primary care provider as scheduled - Diet and Activity Activity: increase activity as tolerated Diet: low fat, low cholesterol, low salt diet Hospital course: Ms. Hendricks is a 50 year old female with past medical history of hypertension, hyperlipidemia, COPD, IBS, sleep apnea, former tobacco abuse, former alcohol abuse, former illicit drug abuse. Patient presented to the emergency department chief complaint shortness of breath and chest pain. Patient stating shortness of breath started approximately 3 days prior to presentation at which time she started to notice increased swelling in her lower extremities. Patient reporting chest pain started on the day prior to presentation and was described as constant pressure that never goes away. Patient also endorsed occasional numbness and tingling in her fingers as well as generalized weakness in her extremities. Patient also endorsed fever, chills, sweats, nausea or vomiting. Patient further reported left upper quadrant pain described as burning. Workup in the emergency department revealing mildly abnormal ECG with slight ST elevation in inferior leads with slight ST depression and anteriorly. D-dimer was also elevated. Chest x-ray negative. Chest CTA negative for PE but did reveal left lower lobe pneumonia. She was admitted to the hospitalist service for further evaluation and management. She was treated for a diastolic heart failure exacerbation as well as a mild COPD exacerbation. Regarding her EKG abnormalities, her troponins remained negative x3 and her EKGs were reviewed by cardiology and there was a very low suscpicion for an SC at that time and acute coronary syndrome was ruled out. Patient was diuresed with IV furosemide and her pedal edema had nearly resolved as did her shortness of breath which returned to its baseline. She was treated with azithromycin and ceftriaxone while admitted. She was on room air during this admission. Regarding her weakness, patient had no focal neurological weakness is present on examination she was ambulatory without restrictions. She was discharged home in stable condition with close outpatient follow-up recommended. Of note, regarding her morbid obesity, patient stating that she has gained quite a bit of weight since she stopped smoking, drinking, and doing drugs last year. She requested multiple resources regarding any health exercises that may be covered by her insurance and social media editor was brought on board to assist with resources. ITS Impressions Chest X-Ray 08/19/16 15:14 IMPRESSION: No acute cardiopulmonary process. D/ / 08/19/2016 16:08:29 Pernell Pitt MD / [email or web address] Interpreting Provider: Pernell Pitt MD Chest CTA 08/19/16 21:50 IMPRESSION: No evidence of a pulmonary embolus. Airspace disease in the superior segment of the left lower lobe consistent with pneumonia. This disease is new from 08/02/2016. Few mildly prominent left hilar lymph nodes are likely reactive. D/ / Donald Drummond MD / Donald Drummond MD Interpreting Provider: Donald Drummond MD Echocardiogram impressions: Normal LV systolic function, LVEF 65%. Normal right ventricular size and function. No evidence of pulmonary hypertension. No significant valvular dysfunction. - Time Spent with Patient Total time spent providing and/or coordinating discharge services: - Constitutional Vitals: Temp Pulse Resp BP Pulse Ox 98.1 F 86 16 98/63 95 08/21/16 12:13 08/21/16 12:13 08/21/16 12:13 08/21/16 12:13 08/21/16 12:13 General appearance: Present: A&O X 3, morbidly obese, pleasant, no acute distress, answers questions appropriately - Head Head exam: Present: atraumatic, normocephalic - Eye Eye exam: Present: PERRL, conjuntiva pink, sclera anicteric Pupils: Present: PERRL - Neck Neck exam general surgery: Present: supple, trachea midline. Absent: lymphadenopathy - Respiratory Respiratory exam: Present: decreased breath sounds. Absent: accessory muscle use, rales, respiratory distress, rhonchi, wheezes - Cardiovascular Cardiovascular exam: Present: RRR, +S1, +S2. Absent: diastolic murmur, gallop, rubs, systolic murmur - GI/Abdominal GI/Abdominal exam: Present: normal bowel sounds, soft, no peritoneal signs. Absent: distended, tenderness - Extremities Exam Extremities exam: Present: pedal edema (trace; nonpitting), warm, radial pulses palpable and symetrical. Absent: calf tenderness, cyanotic - Neurological Exam Neurological exam: Present: alert, CN II-XII intact, normal gait, oriented X3, no focal deficits, strengths equal and symetr throughout. Absent: pronater drift, facial droop, speech deficit - Skin Skin exam: Present: dry, intact, normal color, warm
== END 2016-08-21 16:07 | disposition home or self-care (01) ==
LOC: 3BNU 14:07 → EMEROO 14:07 → 3BNU 17:33
PROVIDERS: ADMIT Nurse Practitioner Family; ATTEND Nurse Practitioner Family

== ENCOUNTER 2016-09-16 11:45 | Observation (INO) ==
--- NOTE | 2016-09-16 12:05 | Emergency Department Note ---
Disposition Clinical Impression: Acute exacerbation of chronic obstructive airways disease, Dyspnea, Morbid obesity with BMI of 40.0-44.9, adult, HTN (hypertension), HLD (hyperlipidemia), Abnormal EKG, Abnormal chest x-ray, Chest pain, Elevated C-reactive protein (CRP ), History of pneumonia Disposition: Admitted As Inpatient Referrals: NO,PCP [Non-Partnered Physician] - General Adult HPI - General Chief complaint: ED Shortness of Breath/Dyspnea Stated complaint: Multiple Complaints Time Seen by Provider: 09/16/16 11:56 Source: patient, family Limitations: no limitations - History of Present Illness HPI Narrative: 50-year-old female reports emergency department complaining of a cough and shortness of breath. She is status post hospitalization about 2-3 weeks ago per her report. She had pneumonitis. The patient states she has a history of COPD. She does not usually require oxygen during the day but sometimes wears oxygen at night. She states she has a nebulizer but does not have oxygen at home at this time. She denies a history of CAD but states she has a history of CHF. She takes diuretics. Patient's currently not anticoagulated. She has no history of DVT PE. There is no history of unilateral leg swelling coughing up blood or syncope. There is no history of acute abdominal pain vomiting or diarrhea. There is no history of unilateral arm weakness or numbness. No headache. No trouble walking talking hearing seeing or speaking. No trouble swallowing. No sore throat or laney ear pain noted. The patient does not describe chest pain. Pain Scale: 0 - Related Data Home Medications Medication Instructions Recorded Confirmed Amitriptyline [Elavil] 25 mg PO HS 08/19/16 09/16/16 Aspirin Enteric Coated [Aspirin EC] 81 mg PO DAILY 08/19/16 09/16/16 Azelastine 0.1% Nasal [place] 1 spray NS BID 08/19/16 09/16/16 [Astelin] BuPROPion SR (12 HR) [Wellbutrin 150 mg PO BID 08/19/16 09/16/16 SR] Carvedilol [Coreg] 25 mg PO DAILY 08/19/16 09/16/16 Cholecalciferol (Vitamin D3) 10,000 unit PO QWEEK 08/19/16 09/16/16 [Vitamin D3] Docusate [Colace] 100 mg PO DAILY PRN 08/19/16 09/16/16 Furosemide [Lasix] 20 mg PO DAILY 08/19/16 09/16/16 Levocetirizine Hcl 5 mg PO DAILY 08/19/16 09/16/16 Melatonin 6 mg PO HS 08/19/16 09/16/16 Metoprolol [Lopressor] 25 mg PO BID 08/19/16 09/16/16 Montelukast [Singulair] 10 mg PO HS 08/19/16 09/16/16 Nefazodone HCl 100 mg PO HS 08/19/16 09/16/16 OLANZapine [Zyprexa] 5 mg PO DAILY 08/19/16 09/16/16 Omeprazole [PriLOSEC] 20 mg PO BID 08/19/16 09/16/16 Polyethylene Glycol 3350 17 gm PO DAILY PRN 08/19/16 09/16/16 Polyvinyl Alcohol [Artificial 1 drop OP TID PRN 08/19/16 09/16/16 Tears] Promethazine [Phenergan] 25 mg PO BID PRN 08/19/16 09/16/16 Ranitidine HCl [Acid Semiautomatic Stitcher Operator] 150 mg PO HS 08/19/16 09/16/16 Tiotropium [Spiriva] 18 mcg IH 0700 08/19/16 09/16/16 FLUoxetine HCl [PROzac] 60 mg PO DAILY 09/16/16 09/16/16 Previous Rx's Medication Instructions Recorded Albuterol Sulfate [Albuterol 2 puff IH Q4HR PRN #1 hfa.aer.ad 08/25/16 Inhaler] Allergies Allergy/AdvReac Type Severity Reaction Status Date / Time Oxytetracycline Allergy Swelling Verified 08/19/16 14:44 [From Terramycin] of Lip/Tongue/Throat All systems ED: reviewed and negative except as stated. Past Medical History - Past Medical History Medical history: Reports: COPD, hyperlipidemia, hypertension Surgical history: Reports: , hysterectomy Psychiatric history: Reports: anxiety, depression, PTSD - Social History Smoking Status: Current every day smoker Smokeless Tobacco Status: No Alcohol use: Reports: none Drug use: Reports: none Physical Exam - General Limitations: no limitations General appearance: alert, in no apparent distress - Head Head exam: atraumatic, normocephalic, normal inspection - Eye Eye exam: Present: normal appearance, PERRL, EOMI - ENT ENT exam: normal exam, normal oropharynx, mucous membranes moist, TM's normal bilaterally, normal external ear exam - Neck Neck exam: Present: normal inspection, full ROM, trachea midline. Absent: meningismus - Chest Chest inspection: Present: symmetric chest wall rise. Absent: tenderness - Respiratory Respiratory exam: Present: normal lung sounds bilaterally. Absent: respiratory distress, wheezes, stridor, accessory muscle use, prolonged expiratory phase - Cardiovascular Cardiovascular exam: Present: regular rate, normal rhythm, normal heart sounds - Abdominal Exam Abdominal exam: Present: soft, Non-Tender, normal bowel sounds. Absent: tenderness, distention, guarding, rebound, rigidity, pulsatile mass - Extremities Exam Extremities exam: Present: normal inspection, full ROM, normal capillary refill. Absent: tenderness, pedal edema, joint swelling, calf tenderness - Expanded Lower Extremity Exam Lower leg exam: Absent: Homans' sign Neurovascular/Tendon exam: Present: normal capillary refill. Absent: motor deficit, sensory deficit, tendon deficit, extremity cold to touch, pallor - Back Exam Back exam: Present: normal inspection, full ROM, tenderness. Absent: CVA tenderness (R), CVA tenderness (L), vertebral tenderness - Neurological Exam Neurological exam: Present: alert, oriented X3, CN II-XII intact. Absent: motor sensory deficit - Psychiatric Psychiatric exam: Present: normal affect, normal mood - Skin Skin exam: Present: warm, dry, intact, normal color. Absent: rash, cyanosis, diaphoresis, erythema, pallor, mottled Course - Reevaluation(s) Reevaluation #1: While the patient was in the ED she started developing chest pressure. Of note her EKG does show T-wave inversions in V1 to V3 which were not there before. She has a history of hyperlipidemia and hypertension. 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 The patient was given morphine and aspirin. She is on a continual heart monitor. Vital Signs Temperature 97.5 F L 09/16/16 11:46 Pulse Rate 81 09/16/16 11:46 Respiratory Rate 22 09/16/16 11:46 Blood Pressure 138/88 09/16/16 11:46 O2 Sat by Pulse Oximetry 93 09/16/16 11:46 Temperature 97.5 F L 09/16/16 11:46 Pulse Rate 82 09/16/16 15:47 Respiratory Rate 20 09/16/16 15:47 Blood Pressure 126/81 09/16/16 15:47 O2 Sat by Pulse Oximetry 96 09/16/16 15:47 Oxygen Delivery Oxygen Delivery Room Air Medical Decision Making - MDM Narrative Medical decision making narrative: The patient has a history of COPD and recent pneumonitis, her chest x-ray does not reveal acute findings. Her recent CT scan did not reveal a PE. The patient has been coughing and been somewhat short of breath. She was treated for emphysema in the ED with a breathing treatment steroid medication as well as antibiotics. Her CRP is markedly elevated. Cultures were sent. The patient began complaining of chest pain in the ED, it is noted she has an abnormal EKG, she is over 50, she has a history of hyperlipidemia and hypertension, and has not had a cardiac catheter or stress test for many years. Her heart score is significantly elevated and she is symptomatic with abnormal testing. Based on her risks and acute pain, I thought it would be appropriate to admit the patient the hospital. I discussed the case with the hospitalist on-call who has accepted the patient to their care. Aspirin and morphine were ordered. - Lab Data Lab results reviewed: Yes I reviewed the patient's lab results. Result diagrams: 09/16/16 12:08 09/16/16 12:08 Lab Results 09/16/16 09/16/16 09/16/16 Range/Units 12:08 12:08 12:08 WBC 7.2 (4.3-11.1) K/mcL RBC 4.24 (3.82-4.97) M/mcL Hgb 12.5 (11.5-15.4) g/dL Hct 38.7 (35.3-44.9) % MCV 91.3 (83.0-100.0) fL MCH 29.5 (28.0-33.3) pg MCHC 32.3 (31.6-35.5) g/dL RDW 13.2 (11.5-14.5) % Plt Count 304 (140-400) K/mcL MPV 9.9 (9.4-12.4) fL Immature Gran % 0.3 (0-4) % Seg Neutrophils % 67.3 % Lymphocytes % 15.5 % Monocytes % 14.9 % Eosinophils % 1.7 % Basophils % 0.3 % Neutrophils # 4.8 (1.6-8.9) K/mcL Lymphocytes # 1.1 (0.6-4.6) K/mcL Monocytes # 1.1 (0.0-1.3) K/mcL Eosinophils # 0.1 (0.0-0.6) K/mcL Basophils # 0.0 (0.0-0.2) K/mcL PT 12.0 (9.4-12.1) Seconds INR 1.1 APTT 36.8 H (26.0-36.0) Seconds Sodium (136-145) mEq/L Potassium (3.5-4.5) mEq/L Chloride (98-109) mEq/L Carbon Dioxide (19-29) mEq/L BUN (7-20) mg/dL Creatinine (0.57-1.11) mg/dL Est GFR ( Amer) (> 60) Est GFR (Non-Af Amer) (> 60) BUN/Creatinine Ratio (6-26) Glucose (70-99) mg/dL Calculated Osmolality (280-300) Lactic Acid 1.4 (0.5-2.2) mmol/L Calcium (8.6-10.8) mg/dL Total Bilirubin (0.2-1.2) mg/dL Direct Bilirubin (0.0-0.5) mg/dL Indirect Bilirubin (0.0-1.2) mg/dL AST (5-34) Units/L ALT (0-55) Units/L Alkaline Phosphatase (38-126) Units/L Troponin I (0-0.03) ng/mL C-Reactive Protein (Less than 5) mg/L B-Natriuretic Peptide (0-100) pg/mL Serum Total Protein (6.0-8.3) g/dL Albumin (3.5-5.0) g/dL Globulin (2.4-3.5) g/dL Albumin/Globulin Ratio (1.1-2.2) 09/16/16 09/16/16 09/16/16 Range/Units 12:08 12:08 12:08 WBC (4.3-11.1) K/mcL RBC (3.82-4.97) M/mcL Hgb (11.5-15.4) g/dL Hct (35.3-44.9) % MCV (83.0-100.0) fL MCH (28.0-33.3) pg MCHC (31.6-35.5) g/dL RDW (11.5-14.5) % Plt Count (140-400) K/mcL MPV (9.4-12.4) fL Immature Gran % (0-4) % Seg Neutrophils % % Lymphocytes % % Monocytes % % Eosinophils % % Basophils % % Neutrophils # (1.6-8.9) K/mcL Lymphocytes # (0.6-4.6) K/mcL Monocytes # (0.0-1.3) K/mcL Eosinophils # (0.0-0.6) K/mcL Basophils # (0.0-0.2) K/mcL PT (9.4-12.1) Seconds INR APTT (26.0-36.0) Seconds Sodium 138 (136-145) mEq/L Potassium 4.3 (3.5-4.5) mEq/L Chloride 99 (98-109) mEq/L Carbon Dioxide 30 H (19-29) mEq/L BUN 9 (7-20) mg/dL Creatinine 0.99 (0.57-1.11) mg/dL Est GFR ( Amer) > 60 (> 60) Est GFR (Non-Af Amer) 59 L (> 60) BUN/Creatinine Ratio 9 (6-26) Glucose 97 (70-99) mg/dL Calculated Osmolality 285 (280-300) Lactic Acid (0.5-2.2) mmol/L Calcium 10.0 (8.6-10.8) mg/dL Total Bilirubin 0.2 (0.2-1.2) mg/dL Direct Bilirubin 0.1 (0.0-0.5) mg/dL Indirect Bilirubin 0.1 (0.0-1.2) mg/dL AST 15 (5-34) Units/L ALT 19 (0-55) Units/L Alkaline Phosphatase 115 (38-126) Units/L Troponin I 0.00 (0-0.03) ng/mL C-Reactive Protein 128 H (Less than 5) mg/L B-Natriuretic Peptide 40 (0-100) pg/mL Serum Total Protein 7.8 (6.0-8.3) g/dL Albumin 3.5 (3.5-5.0) g/dL Globulin 4.3 H (2.4-3.5) g/dL Albumin/Globulin Ratio 0.8 L (1.1-2.2) - Radiology Data Radiology results reviewed: Yes I reviewed the patient's radiology results.
[2016-09-16] MEDS ORDERED: Ipratropium/Albuterol Neb 3 ML IH ONE (12:10)
[2016-09-16] MEDS ORDERED: methylPREDNISolone 125 MG/2 ML VIAL IVP ONE (12:10)
[2016-09-16 12:21] LABS: Basophils % 0.3 %; Eosinophils # 0.1 K/mcL (0.0-0.6); Eosinophils % 1.7 %; Hematocrit 38.7 % (35.3-44.9); Hemoglobin 12.5 g/dL (11.5-15.4); Immature Granulocytes % 0.3 % (0-4); Lymphocytes # 1.1 K/mcL (0.6-4.6); Lymphocytes % 15.5 %; Mean Corpuscular HGB Conc 32.3 g/dL (31.6-35.5); Mean Corpuscular Hemoglobin 29.5 pg (28.0-33.3); Mean Corpuscular Volume 91.3 fL (83.0-100.0); Mean Platelet Volume 9.9 fL (9.4-12.4); Monocytes # 1.1 K/mcL (0.0-1.3); Monocytes % 14.9 %; Neutrophils # 4.8 K/mcL (1.6-8.9); Platelet Count 304 K/mcL (140-400); Red Blood Count 4.24 M/mcL (3.82-4.97); Red Cell Distribution Width 13.2 % (11.5-14.5); Segmented Neutrophils % 67.3 %
[2016-09-16 12:25] LABS: INR 1.1
[2016-09-16 12:27] LABS: Activated Partial Thrombo Time 36.8 Seconds (26.0-36.0)
[2016-09-16 12:34] LABS: Alanine Aminotransferase 19 Units/L (0-55); Albumin 3.5 g/dL (3.5-5.0); Albumin/Globulin Ratio 0.8 (1.1-2.2); Alkaline Phosphatase 115 Units/L (38-126); Aspartate Amino Transferase 15 Units/L (5-34); BUN/Creatinine Ratio 9 (6-26); Bilirubin,Direct 0.1 mg/dL (0.0-0.5); Bilirubin,Indirect 0.1 mg/dL (0.0-1.2); Bilirubin,Total 0.2 mg/dL (0.2-1.2); Blood Urea Nitrogen 9 mg/dL (7-20); C-Reactive Protein 128 mg/L (Less than 5); Carbon Dioxide 30 mEq/L (19-29); Chloride 99 mEq/L (98-109); Globulin 4.3 g/dL (2.4-3.5); Glucose 97 mg/dL (70-99); Osmolality,Calculated 285 (280-300); Potassium 4.3 mEq/L (3.5-4.5); Sodium 138 mEq/L (136-145); Total Protein 7.8 g/dL (6.0-8.3); eGFR For African Americans > 60 (> 60); eGFR For Non-African Americans 59 (> 60)
[2016-09-16] MEDS: Ondansetron 4 MG/2 ML VIAL IVP ONE ×2 (13:10)
[2016-09-16] MEDS ORDERED: *HR* Promethazine 25 MG/ML VIAL IVP ONE ×2 (13:12→21:47)
[2016-09-16] MEDS ORDERED: Levofloxacin 750 MG/150 ML 750 MG/150 ML BAG IVPB ONE (13:57)
[2016-09-16] MEDS ORDERED: *HR* Morphine 2 MG/ML SYRINGE IVP ONE (15:30)
[2016-09-16] MEDS ORDERED: Aspirin 325 MG TABLET PO ONE (15:31)
[2016-09-16] MEDS ORDERED: *HR* OxyCODONE/APAP 5/325 TABLET PO ONE (17:15)
[2016-09-16] MEDS ORDERED: Naloxone 0.4 MG/ML INJ IVP PRN (17:56)
[2016-09-16] MEDS ORDERED: Acetaminophen 325 MG TABLET PO PRN (17:56)
--- NOTE | 2016-09-16 18:01 | Internal Med History&Physical ---
Date of Encounter: 09/16/16 Time of Encounter: 17:30 Assessment and Plan (1) Dyspnea Current visit: Yes Status: Acute Could be due to mild exacerbation of COPD due to viral bronchitis. Also need to rule out ACS. Patient's d-dimer was noted to be slightly elevated during last admission, CT angiogram of chest was done at that time which showed no evidence of pulmonary embolism. Plan as below. Qualifiers: Dyspnea type: shortness of breath Qualified Code(s): R06.02 - Shortness of breath (2) Chest pain, rule out acute myocardial infarction Current visit: Yes Status: Acute Atypical chest pain with history of hypertension and hyperlipidemia. Telemetry monitoring with serial troponins. Continue aspirin and beta allegra. Check lipid profile and add statin as needed. When necessary morphine for pain control. Nuclear stress test in a.m. to rule out ischemia. (3) Smoker Current visit: Yes Status: Resolved Patient reports not smoking since her previous admission. Does not require nicotine transdermal patch at this time. (4) Diastolic heart failure Current visit: Yes Status: Suspected Does not seem to be in acute exacerbation. Echocardiogram done 3 weeks back shows preserved ejection fraction of 65% and no other acute abnormality. Patient does not appear to be having congestive heart failure. Qualifiers: Heart failure chronicity: chronic Qualified Code(s): I50.32 - Chronic diastolic (congestive) heart failure (5) HTN (hypertension) Current visit: Yes Status: Chronic Qualifiers: Hypertension type: essential hypertension Qualified Code(s): I10 - Essential (primary) hypertension (6) HLD (hyperlipidemia) Current visit: Yes Status: Chronic Qualifiers: Hyperlipidemia type: unspecified Qualified Code(s): E78.5 - Hyperlipidemia , unspecified (7) COPD with acute exacerbation Current visit: Yes Status: Acute Patient may be having mild acute on chronic bronchitis. She also most likely has viral illness given her respiratory and GI complaints. Supportive care, IV hydration, when necessary Tylenol and antiemetics. Start oral steroids and scheduled bronchodilators. Supplemental oxygen as needed, currently not requiring any. Internal Medicine - H&P: HPI Chief complaint: Shortness of breath, back pain Admitted From: Emergency Dept Plans for Post Hospital Care: Home History of present illness: Ms. Hendricks is a 50 year old female with history of hypertension and COPD presents with complaints of shortness of breath and chest pain. Patient has multiple nonspecific complaints and it is difficult to obtain pertinent history. She has been discharged from the hospital about 3 weeks ago after being treated for pneumonia and acute COPD. She reports feeling better after discharge but gradually started developing shortness of breath and fatigue associated with epigastric and lower chest pain along with upper back pain, which she describes as lung pain. Her pain is intermittent, more like chest tightness, radiating to right upper arm, 10/10 in severity, also associated with dry cough worsening over the last 2 days. On review of systems, patient reports positive symptoms off almost all the systems including generalized weakness, malaise, anorexia, nausea, vomiting, diarrhea, abdominal pain, orthopnea. Past Med Surg Social Fam HX - Past Medical History Medical history: COPD, hyperlipidemia, hypertension Psychiatric history: anxiety, depression, PTSD - Past Surgical History Surgical History: , hysterectomy - Social History Smoking Status: Current every day smoker (Reports that she quit smoking since her last hospitalization, which was about 3 weeks back) Smokeless Tobacco Status: No Alcohol use: none Drug use: none Occupational status: disabled Current living situation: Home, With Family Activity Level: Uses cane/walker Recent Out of Country Travel Within the Last 8 Weeks: No - Family History Mother Living Status: Hx Family Respiratory Disorders: Yes Father Living Status: Hx Family Cardiac Disorders: Yes Internal Medicine - H&P: Meds Amitriptyline [Elavil] 25 mg PO HS 08/19/16 [History] Aspirin Enteric Coated [Aspirin EC] 81 mg PO DAILY 08/19/16 [History] Azelastine 0.1% Nasal [place] [Astelin] 1 spray NS BID 08/19/16 [History] BuPROPion SR (12 HR) [Wellbutrin SR] 150 mg PO BID 08/19/16 [History] Carvedilol [Coreg] 25 mg PO DAILY 08/19/16 [History] Cholecalciferol (Vitamin D3) [Vitamin D3] 10,000 unit PO QWEEK 08/19/16 [History ] Docusate [Colace] 100 mg PO DAILY PRN 08/19/16 [History] Furosemide [Lasix] 20 mg PO DAILY 08/19/16 [History] Levocetirizine Hcl 5 mg PO DAILY 08/19/16 [History] Melatonin 6 mg PO HS 08/19/16 [History] Metoprolol [Lopressor] 25 mg PO BID 08/19/16 [History] Montelukast [Singulair] 10 mg PO HS 08/19/16 [History] Nefazodone HCl 100 mg PO HS 08/19/16 [History] OLANZapine [Zyprexa] 5 mg PO DAILY 08/19/16 [History] Omeprazole [PriLOSEC] 20 mg PO BID 08/19/16 [History] Polyethylene Glycol 3350 17 gm PO DAILY PRN 08/19/16 [History] Polyvinyl Alcohol [Artificial Tears] 1 drop OP TID PRN 08/19/16 [History] Promethazine [Phenergan] 25 mg PO BID PRN 08/19/16 [History] Ranitidine HCl [Acid Railroad Inspector] 150 mg PO HS 08/19/16 [History] Tiotropium [Spiriva] 18 mcg IH 0700 08/19/16 [History] Albuterol Sulfate [Albuterol Inhaler] 2 puff IH Q4HR PRN #1 hfa.aer.ad 08/25/16 [Rx] FLUoxetine HCl [PROzac] 60 mg PO DAILY 09/16/16 [History] Allergies Oxytetracycline [From Terramycin] Allergy (Verified 08/19/16 14:44) Swelling of Lip/Tongue/Throat All Systems PM: A 10-system review of systems was performed and is negative for pertinent findings except as documented above in the HPI. - Constitutional Constitutional: anorexia, chills, fatigue, malaise, weakness - EENT Eyes: no change in vision, no discharge, no pain, no photophobia Ears: no ear discharge, no ear pain, no tinnitus Nose, mouth and throat: no dysphagia, no nasal discharge, no neck pain, no sore throat - Cardiovascular Cardiovascular ROS IM: chest pain, dyspnea, dyspnea on exertion - Respiratory Respiratory: cough, dyspnea, dyspnea on exertion - Gastrointestinal Gastrointestinal: abdominal pain, diarrhea, nausea, vomiting - Genitourinary Genitourinary: no change in urinary stream, no dysuria, no flank pain, no hematuria - Musculoskeletal Musculoskeletal ROS IM: back pain, myalgias, stiffness - Integumentary Integumentary IM: no rash, no unusual bruising - Neurological Neurological ROS: no confusion, no convulsions, no focal weakness, no numbness, no tingling, no tremor(s) - Hematologic/Lymphatic Hematologic/Lymphatic: no easy bruising - Constitutional Vitals: Temp Pulse Resp BP Pulse Ox 97.5 F L 59 18 104/61 95 09/16/16 11:46 09/16/16 17:59 09/16/16 17:59 09/16/16 17:59 09/16/16 17:59 General appearance: Present: mild distress, A&O X 3, morbidly obese, answers questions appropriately - Respiratory Respiratory exam: Present: CTAB. Absent: accessory muscle use, rales, rhonchi, wheezes - Cardiovascular Cardiovascular exam: Present: RRR, +S1, +S2. Absent: diastolic murmur, gallop, rubs, systolic murmur - GI/Abdominal GI/Abdominal exam: Present: normal bowel sounds, soft (Obese), no peritoneal signs. Absent: distended, tenderness - Extremities Exam Extremities exam: Present: full ROM, warm, radial pulses palpable and symetrical. Absent: calf tenderness, cyanotic, pedal edema - Neurological Exam Neurological exam: Present: CN II-XII intact, oriented X3, no focal deficits. Absent: pronater drift, facial droop, speech deficit - Skin Skin exam: Present: dry, intact Internal Med - H&P Results - Labs CBC & Chem 7: 09/17/16 00:55 09/17/16 00:54 - EKG Data -: EKG Interpreted by Myself EKG shows normal: sinus rhythm Rate: normal (T-wave inversions V1, V2, V3)
[2016-09-16] MEDS: predniSONE 20 MG TABLET PO SCH (19:43)
[2016-09-16] MEDS: 0.9 % Sodium Chloride 1,000 ML IVC SCH (19:44)
[2016-09-16] MEDS: Ondansetron 4 MG/2 ML VIAL IVP PRN (19:47)
[2016-09-16] MEDS: *HR* Morphine 2 MG/ML SYRINGE IVP PRN (19:53)
[2016-09-16] MEDS: Albuterol 2.5 MG/3 ML NEBULIZER IH SCH ×2 (20:01→23:31)
[2016-09-16] MEDS: NEFAZODONE HCL 100 MG PO SCH (22:00)
[2016-09-16] MEDS: BuPROPion SR (12 HR) 150 MG TABLET PO SCH (22:28)
[2016-09-16] MEDS: *HR* OxyCODONE Immed Rel 5 MG TABLET PO PRN (22:29)
[2016-09-17] MEDS: *HR* Morphine 2 MG/ML SYRINGE IVP PRN ×5 (00:01→19:41)
[2016-09-17 01:08] LABS: Basophils % 0.1 %; Hematocrit 36.8 % (35.3-44.9); Hemoglobin 12.1 g/dL (11.5-15.4); Immature Granulocytes % 0.4 % (0-4); Lymphocytes # 0.5 K/mcL (0.6-4.6); Lymphocytes % 6.4 %; Mean Corpuscular HGB Conc 32.9 g/dL (31.6-35.5); Mean Corpuscular Volume 91.3 fL (83.0-100.0); Mean Platelet Volume 10.1 fL (9.4-12.4); Monocytes # 0.1 K/mcL (0.0-1.3); Monocytes % 1.1 %; Neutrophils # 6.6 K/mcL (1.6-8.9); Platelet Count 304 K/mcL (140-400); Red Blood Count 4.03 M/mcL (3.82-4.97); Red Cell Distribution Width 12.9 % (11.5-14.5)
[2016-09-17 01:24] LABS: BUN/Creatinine Ratio 10 (6-26); Blood Urea Nitrogen 10 mg/dL (7-20); Calcium 10.1 mg/dL (8.6-10.8); Carbon Dioxide 28 mEq/L (19-29); Chloride 98 mEq/L (98-109); Chol/HDL Ratio 3.6 (0-4.9); Cholesterol 237 mg/dL (< 200); Glucose 180 mg/dL (70-99); HDL Cholesterol 65 mg/dL (40-59); LDL Cholesterol,Calculated 156 mg/dL (0-99); Osmolality,Calculated 284 (280-300); Potassium 4.2 mEq/L (3.5-4.5); Sodium 135 mEq/L (136-145); Triglycerides 80 mg/dL (< 150); eGFR For African Americans > 60 (> 60); eGFR For Non-African Americans 58 (> 60)
[2016-09-17] MEDS: Albuterol 2.5 MG/3 ML NEBULIZER IH SCH ×6 (03:57→23:40)
[2016-09-17] MEDS ORDERED: Regadenoson 0.4 MG/5 ML SYRINGE IVP ONE (06:31)
[2016-09-17] MEDS: Tiotropium 18 MCG inhalation IH SCH (07:45)
[2016-09-17] MEDS: Ondansetron 4 MG/2 ML VIAL IVP PRN ×2 (08:28→23:17)
--- NOTE | 2016-09-17 10:33 | Electrocardiograph Report ---
[place] [id number] Test Date: 2016-09-16 Pat Name: Noni Hendricks Department: 104 Room: 3B Gender: F Cooler Tender: KATHY : 1965 Requested By: Fredrick George Order Number: [id number] Reading MD: Alec Sharma Measurements Intervals [place] Rate: 79 P: 42 ID: [id number] QRS: 46 QRSD: 105 T: 69 QT: 374 QTc: 409 Interpretive Statements SINUS RHYTHM MINIMAL ST DEPRESSION Electronically Signed On 09-17-2016 10:32:42 EDT by Alec Sharma
[2016-09-17] MEDS: OLANZapine 5 MG TAB.RAPDIS PO SCH (10:47)
[2016-09-17] MEDS: predniSONE 20 MG TABLET PO SCH (10:47)
[2016-09-17] MEDS: BuPROPion SR (12 HR) 150 MG TABLET PO SCH ×2 (10:47→23:18)
[2016-09-17] MEDS: Aspirin Enteric Coated 81 MG Tablet PO SCH (10:48)
[2016-09-17] MEDS: FLUoxetine 20 MG CAPSULE PO SCH (10:48)
[2016-09-17] MEDS: *HR* OxyCODONE Immed Rel 5 MG TABLET PO PRN ×2 (10:48→17:20)
[2016-09-17] MEDS: 0.9 % Sodium Chloride 1,000 ML IVC SCH (12:44)
--- NOTE | 2016-09-17 16:12 | Internal Med Progress Note ---
Date of Encounter: 09/17/16 Time of Encounter: 16:09 - Assessment and plan (1) Dyspnea Current Visit: Yes Status: Acute Qualifiers: Dyspnea type: shortness of breath Qualified Code(s): R06.02 - Shortness of breath (2) Chest pain, rule out acute myocardial infarction Current Visit: Yes Status: Acute Assessment and plan: Improving. Continue aspirin and beta allegra. Start atorvastatin as lipid profile shows elevated LDL cholesterol, at 156. Telemetry monitoring uneventful and serial troponins remained negative. Patient underwent first part of nuclear stress test, second part tomorrow. Continues to request for IV morphine and oral Percocet for chest and upper back pain. (3) Smoker Current Visit: Yes Status: Resolved (4) Diastolic heart failure Current Visit: Yes Status: Ruled-out Qualifiers: Heart failure chronicity: chronic Qualified Code(s): I50.32 - Chronic diastolic (congestive) heart failure (5) HTN (hypertension) Current Visit: Yes Status: Chronic Qualifiers: Hypertension type: essential hypertension Qualified Code(s): I10 - Essential (primary) hypertension (6) HLD (hyperlipidemia) Current Visit: Yes Status: Chronic Qualifiers: Hyperlipidemia type: unspecified Qualified Code(s): E78.5 - Hyperlipidemia , unspecified (7) COPD with acute exacerbation Current Visit: Yes Status: Acute Assessment and plan: Improving. Continue to taper down oral steroids as tolerated. Continue bronchodilators. Currently not requiring supplemental oxygen. Patient requests for a prescription for nebulizer and home oxygen if needed. - Subjective Interval history: Reports feeling slightly better with improved chest pain and shortness of breath. Continues to report upper back pain and requests for narcotic pain medications. Also reports nausea and vomiting although there is no nursing documentation of the same. - Constitutional Vitals: Temp Pulse Resp BP Pulse Ox 98.8 F 87 16 113/56 95 09/17/16 15:52 09/17/16 15:52 09/17/16 15:52 09/17/16 15:52 09/17/16 15:52 General appearance: Present: A&O X 3, morbidly obese, answers questions appropriately - Respiratory Respiratory exam: Present: CTAB. Absent: accessory muscle use, rales, rhonchi, wheezes - Cardiovascular Cardiovascular exam: Present: RRR, +S1, +S2. Absent: diastolic murmur, gallop, rubs, systolic murmur - GI/Abdominal GI/Abdominal exam: Present: normal bowel sounds, soft, no peritoneal signs. Absent: distended, tenderness - Extremities Exam Extremities exam: Present: full ROM, warm, radial pulses palpable and symetrical. Absent: calf tenderness, cyanotic, pedal edema Internal Medicine: Result - Labs CBC & Chem 7: 09/17/16 00:55 09/17/16 00:54 Labs: Short CBC 09/17/16 Range/Units 00:55 WBC 7.2 (4.3-11.1) K/mcL Hgb 12.1 (11.5-15.4) g/dL Hct 36.8 (35.3-44.9) % Plt Count 304 (140-400) K/mcL Neutrophils # 6.6 (1.6-8.9) K/mcL BMP 09/17/16 00:54 Sodium 135 L Potassium 4.2 Chloride 98 Carbon Dioxide 28 BUN 10 Creatinine 1.00 Glucose 180 H Calcium 10.1 Cardiac Enzymes 09/16/16 09/17/16 09/17/16 Range/Units 19:33 00:54 05:22 Troponin I 0.00 0.00 0.01 (0-0.03) ng/mL - ABG Interpretation ABG results: PT/INR, D-dimer PT 12.0 Seconds (9.4-12.1) 09/16/16 12:08 Consult Discharge Plan - Plan
[2016-09-17] MEDS: NEFAZODONE HCL 100 MG PO SCH (23:18)
[2016-09-18] MEDS: *HR* Morphine 2 MG/ML SYRINGE IVP PRN ×3 (00:35→10:39)
[2016-09-18] MEDS: Albuterol 2.5 MG/3 ML NEBULIZER IH SCH ×4 (03:23→16:26)
--- NOTE | 2016-09-18 07:51 | Nuclear Medicine Stress Report ---
Regadenoson Nuclear 2 day Name: Noni Hendricks Date of Study: 09/17/2016 Date: 1965 Ht: 64.0 in Medical Record#: [id number] Age: 50 Wt: 250.0 lb Gender: Female Order #: [id number] Location: [facility] Room: [facility] Supervising Provider: Markus Hackett CNP Reading Physician: Fredo Taylor MD, [facility] Ordering Physician: Yara Richardson CNP Primary Care Physician: Itzel Jorgensen NP Stress Technologist: Shari Daigle, [employer]DRO[employer] P[employer]IC CARD GRADER, CCT, CPFT Oyster Cultivator: Ani Monge Indications: Chest Pain Impression: Gated LVEF > 70%. Perfusion imaging was negative for ischemia or infarct. History: Hypertension Hypercholesteremia Stress Test Summary: Stress Test Type: Pharmacologic Regadenoson 0.4mg/5ml given IV Baseline Information: Initial Heart Rate: 93 Blood Pressure: 114/78 Stress Information: Test Terminated Due to (primary): As per protocol Maximum Blood Pressure: 114/80 Maximum Heart Rate: 99 Percent Maximum Heart Rate Achieved: 59 Double Product: [id number] Symptoms: Shortness of breath Nuclear Summary: SPECT myocardial perfusion imaging using Tc99m Sestamibi given intravenously was performed at rest and following cardiac stress testing. The resting images were obtained following initial dose of 34 mCi. Following stress an additional dose of 34.8 mCi was given at peak exercise or 30 seconds post regadenoson infusion. Findings: Stress Note * Resting ECG demonstrated normal sinus rhythm. * No baseline arrhythmias were noted. * Patient had no chest pain during stress. * No arrhythmias were noted during stress. * No significant ECG changes with regadenoson. Hemodynamic responses * Normal hemodynamic responses to pharmacologic stress. Study Quality * Study quality is average. Gated EF > 70% * Gated LVEF > 70%. Left Ventricle * The left ventricle is not dilated. * Normal Segmental Perfusion in rest. * Normal segmental perfusion in stress. TID * No evidence of transient ischemic dilatation. Updated by Fredo Taylor MD, [facility] on 09/18/2016 7:48:30 AM electronically signed on 09/18/2016 7:48:51 AM with status of Final
[2016-09-18] MEDS: Tiotropium 18 MCG inhalation IH SCH (07:54)
[2016-09-18] MEDS: FLUoxetine 20 MG CAPSULE PO SCH (08:44)
[2016-09-18] MEDS: Aspirin Enteric Coated 81 MG Tablet PO SCH (08:44)
[2016-09-18] MEDS: OLANZapine 5 MG TAB.RAPDIS PO SCH (08:44)
[2016-09-18] MEDS: predniSONE 20 MG TABLET PO SCH (08:44)
[2016-09-18] MEDS: BuPROPion SR (12 HR) 150 MG TABLET PO SCH (08:44)
[2016-09-18] MEDS: *HR* OxyCODONE Immed Rel 5 MG TABLET PO PRN (08:53)
[2016-09-18] MEDS ORDERED: *HR* Promethazine 25 MG/ML VIAL IVP PRN (11:01)
[2016-09-18] MEDS ORDERED: Benzonatate 100 MG CAPSULE PO PRN (11:01)
[2016-09-18] MEDS ORDERED: *HR* OxyCODONE/APAP 5/325 TABLET PO ONE (14:09)
--- NOTE | 2016-09-18 14:50 | Discharge Summary ---
Date of Encounter: 09/18/16 Time of Encounter: 14:38 - Discharge Diagnosis (1) Dyspnea Priority: Primary Status: Acute Qualifiers: Dyspnea type: shortness of breath Qualified Code(s): R06.02 - Shortness of breath (2) Chest pain, rule out acute myocardial infarction Priority: Primary Status: Acute (3) Smoker Priority: Secondary Status: Chronic (4) HTN (hypertension) Priority: Secondary Status: Chronic Qualifiers: Hypertension type: essential hypertension Qualified Code(s): I10 - Essential (primary) hypertension (5) HLD (hyperlipidemia) Priority: Secondary Status: Chronic Qualifiers: Hyperlipidemia type: unspecified Qualified Code(s): E78.5 - Hyperlipidemia , unspecified (6) COPD with acute exacerbation Priority: Primary Status: Acute - Discharge Medications Prescriptions: Ipratropium/Albuterol Neb [Duoneb] 3 ml IH Q6HR PRN 30 Days PRN Reason: Shortness Of Breath/Wheezing Atorvastatin [Lipitor] 40 mg PO HS #30 tablet Benzonatate [Tessalon] 100 mg PO TID PRN #20 capsule PRN Reason: Cough Nebulizer [Aeroeclipse] 1 each MC Q6H PRN 30 Days PRN Reason: Shortness Of Breath/Wheezing predniSONE [PredniSONE] 40 mg PO DAILY #14 tablet Home Medications: Amitriptyline [Elavil] 25 mg PO HS 08/19/16 [History] Aspirin Enteric Coated [Aspirin EC] 81 mg PO DAILY 08/19/16 [History] Azelastine 0.1% Nasal [place] [Astelin] 1 spray NS BID 08/19/16 [History] BuPROPion SR (12 HR) [Wellbutrin SR] 150 mg PO BID 08/19/16 [History] Cholecalciferol (Vitamin D3) [Vitamin D3] 10,000 unit PO QWEEK 08/19/16 [History ] Docusate [Colace] 100 mg PO DAILY PRN 08/19/16 [History] Furosemide [Lasix] 20 mg PO DAILY 08/19/16 [History] Levocetirizine Hcl 5 mg PO DAILY 08/19/16 [History] Melatonin 6 mg PO HS 08/19/16 [History] Metoprolol [Lopressor] 25 mg PO BID 08/19/16 [History] Montelukast [Singulair] 10 mg PO HS 08/19/16 [History] Nefazodone HCl 100 mg PO HS 08/19/16 [History] OLANZapine [Zyprexa] 5 mg PO DAILY 08/19/16 [History] Omeprazole [PriLOSEC] 20 mg PO BID 08/19/16 [History] Polyethylene Glycol 3350 17 gm PO DAILY PRN 08/19/16 [History] Polyvinyl Alcohol [Artificial Tears] 1 drop OP TID PRN 08/19/16 [History] Promethazine [Phenergan] 25 mg PO BID PRN 08/19/16 [History] Ranitidine HCl [Acid Business Services Intern] 150 mg PO HS 08/19/16 [History] Tiotropium [Spiriva] 18 mcg IH 0700 08/19/16 [History] Albuterol Sulfate [Albuterol Inhaler] 2 puff IH Q4HR PRN #1 hfa.aer.ad 08/25/16 [Rx] FLUoxetine HCl [Prozac] 60 mg PO DAILY 09/16/16 [History] Atorvastatin [Lipitor] 40 mg PO HS #30 tablet 09/18/16 [Rx] Benzonatate [Tessalon] 100 mg PO TID PRN #20 capsule 09/18/16 [Rx] Ipratropium/Albuterol Neb [Duoneb] 3 ml IH Q6HR PRN 30 Days 09/18/16 [Rx] Nebulizer [Aeroeclipse] 1 each MC Q6H PRN 30 Days 09/18/16 [Rx] predniSONE [PredniSONE] 40 mg PO DAILY #14 tablet 09/18/16 [Rx] Allergies/Adverse Reactions: Allergies Oxytetracycline [From Terramycin] Allergy (Verified 08/19/16 14:44) Swelling of Lip/Tongue/Throat Procedures/tests Complete & Pending: Procedures Performed prior 72 hours Category Date Time Status NM marci perf SPECT multi [NM] Routine Exams 09/16/16 18:00 Taken SP pharm nuclear stress Routine Y 09/17/16 07:30 Completed Date of admission: 09/16/16 17:01 Primary care physician: Itzel Jorgensen CNP Consults: 09/16/16 19:48 Consult to [employer]isher [CONS] Routine Reason for SW Consult: PT WOULD LIKE TO DISCUSS ADVANCE DIRECTIVES 09/17/16 17:00 Consult to Physical Therapy [CONS] Routine Comment: Evaluate, develop and implement POC Reason for Consult: Patient states she has difficulty tolerating daily activities 09/17/16 17:02 Consult to Occupational Therapy [CONS] Routine Comment: Evaluate, develop and implement POC Reason for Consult: Patient has difficulty tolerating physicial daily activites. Discharging clinician: Roxie Heath Anticipated date of discharge: 09/18/16 - Patient Status Disposition: Home Health Service Condition: Good Functional capacity at discharge: independent ambulation Overall status at discharge: patient is progressing back to baseline - Discharge Instructions Instructions: Prednisone (By mouth), Atorvastatin (By mouth), Ipratropium/ Albuterol (By breathing), Chest Pain (DC), Chronic Obstructive Pulmonary Disease (DC), How to Use a Nebulizer (DC) Follow Up With: Roni Stoner MD [Partnered Physician] - 10/27/16 8:30 am Itzel Jorgensen CNP [Primary Care Provider] - 09/25/16 11:00 am Milton Patel DO [Partnered Physician] - 10/17/16 12:00 pm - Diet and Activity Activity: as per physical therapy, resume usual activities as tolerated Diet: low fat, low cholesterol, low salt diet Hospital course: Ms. Hendricks is a 50 year old female with history of substance abuse, COPD who was admitted with nonspecific complaints of shortness of breath and chest tightness. Initial workup in the emergency room including labs, chest x-ray and EKG showed no acute abnormality. She was monitored on telemetry, which remained uneventful. Serial troponins remained normal. She had a recent echocardiogram which showed preserved ejection fraction and no other acute abnormality. Nuclear stress test was completed during this admission, which was negative for ischemia or infarct. She was noted to have diastolic CHF during her previous admission but she was explained that her echocardiogram was normal. She does report some leg swelling, which is not significant and likely not related to CHF. Patient persistently requested for IV narcotic pain medications during this admission and was obsessed about pain management. She also requested for a prescription for home oxygen and nebulizer machine reporting that "breathing treatments are the only thing that is keeping her going". She did not qualify for home oxygen at this time but she is provided with a prescription for nebulizer. Physical and occupational therapy evaluation was completed and recommend home health services, however this could not be arranged as patient lives at a sober house which does not allow home health services due to confidentiality issues to other residents. Patient was seen by family welfare social work professor and recommended to follow up as outpatient for physical therapy. She is medically stable for discharge. - Time Spent with Patient Total time spent providing and/or coordinating discharge services: Greater than 30 minutes (50 min) - Constitutional Vitals: Temp Pulse Resp BP Pulse Ox 98.1 F 95 18 94/60 93 09/18/16 10:55 09/18/16 10:55 09/18/16 10:55 09/18/16 10:55 09/18/16 10:55 General appearance: Present: A&O X 3, morbidly obese, answers questions appropriately - Respiratory Respiratory exam: Present: CTAB. Absent: accessory muscle use, rales, rhonchi, wheezes - Cardiovascular Cardiovascular exam: Present: RRR, +S1, +S2. Absent: diastolic murmur, gallop, rubs, systolic murmur
[2016-09-18 15:19] VITALS: BP 118/79
== END 2016-09-18 18:40 | disposition home health service (06) ==
LOC: EMEROO 11:45 → 3BNU 11:45
PROVIDERS: ADMIT Internal Medicine; ATTEND Nurse Practitioner Family

== ENCOUNTER 2018-04-02 13:05 | Inpatient (IN) ==
[2018-04-02] MEDS ORDERED: methylPREDNISolone 125 MG/2 ML VIAL IVP ONE (13:30)
[2018-04-02] MEDS ORDERED: Ipratropium/Albuterol Neb 3 ML IH ONE (13:32)
--- NOTE | 2018-04-02 13:36 | Emergency Department Note ---
Disposition Clinical Impression: Acute exacerbation of chronic obstructive airways disease, Cough, Bronchitis Disposition: Admitted As Inpatient Condition: Fair Referrals: Itzel Jorgensen CNP [Primary Care Provider] - Forms: ED Satisfaction Letter Time of Disposition: 17:06 SOB HPI - General Chief Complaint: ED Shortness of Breath/Dyspnea Stated Complaint: WESLEY Time Seen by Provider: 04/02/18 13:13 Nursing Notes Reviewed: Yes Vital Signs Reviewed: Yes - History of Present Illness 82-year-old female presents from home for evaluation of shortness of breath. Onset progressive over the past 2 weeks. She has tried all of her home therapies for her COPD and has spoken with her primary care physician. Her symptoms are not improved with her home supplement oxygen, home CPAP, home breathing treatments. She started prednisone with first dose this morning 6 hours prior to arrival. Her symptoms are not improving. Shortness of breath is markedly worse with light exertion. She has had similar episodes which were e xacerbation of her baseline COPD. She has no fever though does have a productive cough with yellow sputum. She additionally has chest tightness that is transient; no chest pain or chest tightness at this time in the emergency department. ROS: Positive: As above Negative: Fever, chills, nausea, vomiting, palpitations, diaphoresis, abdominal pain, change of bowel or bladder habits. No lightheadedness or confusion. - Related Data Home Medications Medication Instructions Recorded Confirmed Amitriptyline [Elavil] 25 mg PO HS 08/19/16 01/07/18 Aspirin Enteric Coated [Aspirin EC] 81 mg PO DAILY 08/19/16 01/07/18 Azelastine 0.1% Nasal [place] 1 spray NS BID 08/19/16 01/07/18 [Astelin] Cholecalciferol (Vitamin D3) 10,000 unit PO MO 08/19/16 01/07/18 [Vitamin D3] Docusate [Colace] 100 mg PO DAILY PRN 08/19/16 01/07/18 Furosemide [Lasix] 20 mg PO DAILY 08/19/16 01/07/18 Melatonin 6 mg PO HS 08/19/16 01/07/18 Metoprolol [Lopressor] 25 mg PO BID 08/19/16 01/07/18 Montelukast [Singulair] 10 mg PO HS 08/19/16 01/07/18 Omeprazole [PriLOSEC] 20 mg PO BID 08/19/16 01/07/18 Tiotropium [Spiriva] 2 puff IH 0700 08/19/16 01/07/18 BuPROPion XL (24 HR) [Wellbutrin 150 mg PO DAILY 06/16/17 01/07/18 XL] Carvedilol [Coreg] 25 mg PO DAILY 06/16/17 01/07/18 Loratadine [Claritin] 10 mg PO DAILY 06/16/17 01/07/18 Mv-Mn/FA/Vit K/Lycop/Lut/Coq10 1 tab PO DAILY 06/16/17 01/07/18 [Daily Multivitamin Capsule] Promethazine [Phenergan] 25 mg PO BID PRN 06/16/17 01/07/18 Dextran 70/Hypromellose 1 drop OP BID 01/07/18 01/07/18 [Artificial Tears] Famotidine [Pepcid] 40 mg PO DAILY 01/07/18 01/07/18 Fluticasone/Vilanterol [Breo 1 each IH DAILY 01/07/18 01/07/18 Ellipta 100-25 Mcg INH] Guaifenesin [Mucinex] 600 mg PO Q12H 01/07/18 01/07/18 Ibuprofen [Motrin] 600 mg PO TIDWM PRN 01/07/18 01/07/18 Ipratropium/Albuterol Neb [Duoneb] 3 ml IH Q6HR 01/07/18 01/07/18 Lurasidone [Latuda] 20 mg PO DAILY 01/07/18 01/07/18 Polyethylene Glycol 3350 [MiraLAX] 17 gm PO DAILY 01/07/18 01/07/18 Trazodone HCl 100 mg PO DAILY 01/07/18 01/07/18 hydrOXYzine HCl [Hydroxyzine HCl] 25 mg PO TID PRN 01/07/18 01/07/18 lamoTRIgine [Lamictal] 150 mg PO HS 01/07/18 01/07/18 Previous Rx's Medication Instructions Recorded Albuterol Sulfate [Albuterol 2 puff IH Q4HR PRN #1 hfa.aer.ad 08/25/16 Inhaler] Atorvastatin [Lipitor] 40 mg PO HS #30 tablet 06/15/17 Benzonatate [Tessalon] 100 mg PO TID #15 capsule 03/17/18 Cephalexin [Keflex] 500 mg PO TID #30 capsule 03/17/18 Ketoconazole 2% CRM [Nizoral Cream] 1 appl TP BID #1 tube 03/17/18 PredniSONE [Deltasone] 20 mg PO DAILY #12 tablet 03/17/18 Promethazine [Phenergan] 12.5 mg PO Q8HR #15 tablet 03/17/18 Doxycycline 100 mg PO BID #14 capsule 03/19/18 Allergies Allergy/AdvReac Type Severity Reaction Status Date / Time oxytetracycline Allergy Swelling Verified 03/19/18 00:12 [From Terramycin] of Lip/Tongue/Throat All systems ED: reviewed and negative except as stated. Review of Systems: As Per HPI Past Medical History - Past Medical History Medical history: Reports: CHF, COPD, fibromyalgia, GERD, hyperlipidemia, hypertension, migraine, peripheral artery disease, RA Surgical history: Reports: , hysterectomy Psychiatric history: Reports: anxiety, depression, PTSD HIM ANALYST history: Reports: no HIM ANALYST history - Social History Smoking Status: Current every day smoker Smokeless Tobacco Status: No Alcohol use: Reports: none Drug use: Reports: none Physical Exam Vital Signs Reviewed General: Patient is alert, oriented, and in mild respiratory distress-she is using accessory muscles despite supplement oxygen. Head: atraumatic, normocephalic Eye: normal appearance, PERRL, EOMI, no scleral icterus, no conjunctival injection ENT: mucous membranes moist, normal external ear exam Neck: normal inspection, trachea midline, full ROM Chest: normal inspection, symmetric chest rise Respiratory: Good respiratory effort. Bilateral breath sounds have diminished air entry with diffuse fine wheezes. No crackles or rhonchi. Cardiovascular: Regular rate and rhythm. No clicks, rubs, gallops, or murmors. Normal heart sounds. Abdomen: Bowel sounds present normoactive. Abdomen is soft, nondistended, and nontender. No guarding or rebound. Musculoskeletal: Spontaneously moving all extremities. Skin: warm, dry, intact. Neuro: GCS 15. No focal neurologic deficits observed. Psych: Patient's affect is appropriate for situation. Course Course Narrative: EKG dated 04/02/20 1014:15 interpreted as sinus rhythm with rate of 83. OK 195, QRS 88, QTC 4 system 1. Normal axis. Nonspecific ST-T changes. Compared to previous EKGs of 03/18/2018 showing no acute ischemic changes comparison. Serum hematology is unremarkable. Serum chemistry is unremarkable. Chest x-ray concerning for potential pulmonary edema. This does not correlate with patient's physical exam. Patient does have slight elevation in d-dimer. Subsequent CTA shows no PE, no consolidation or atelectasis, and no pulmonary edema. I discussed the above the patient. She does feel slightly better however, has not yet angulated around the ED. There should decision making, we discussed her previous visits to the emergency department 2 weeks ago. At that time, she was given a decision of going home versus admission to the hospital. She decided to go home. She has since had one full course of antibiotics and steroids and began a second course of steroids today. Her symptoms never improved and have actually worsened. Patient is concerned that, though she would prefer to go home, she is not able to manage these symptoms herself despite her maximum capabilities at home. She is agreeable to admission for continued pulmonary evaluation. I discussed the patient with the admitting hospitalist. He accepts the patient for acute exacerbation of COPD and continued pulmonary support. Chest X-Ray 04/02/18 13:20 IMPRESSION: Findings of interstitial pulmonary edema. D/ / 04/02/2018 14:09:15 Jacob Louise MD / [facility] Interpreting Provider: Jacob Louise MD Chest CTA 04/02/18 14:45 IMPRESSION: No evidence of pulmonary embolism or acute pulmonary abnormality. D/ / Pernell Teague MD / Pernell Teague MD Interpreting Provider: Pernell Teague MD Vital Signs Temperature 98.4 F 04/02/18 13:07 Pulse Rate 91 04/02/18 13:07 Respiratory Rate 24 04/02/18 13:07 Blood Pressure 158/101 04/02/18 13:07 O2 Sat by Pulse Oximetry 91 04/02/18 13:07 Temperature 98.4 F 04/02/18 13:17 Pulse Rate 83 04/02/18 15:51 Respiratory Rate 19 04/02/18 15:51 Blood Pressure 131/74 04/02/18 15:51 O2 Sat by Pulse Oximetry 96 04/02/18 15:51 Oxygen Delivery Oxygen Delivery Room Air Shortness of Breath/Dyspnea - Lab Data Result diagrams: 04/02/18 13:38 04/02/18 13:38 Lab Results 04/02/18 04/02/18 04/02/18 Range/Units 13:38 13:38 13:38 WBC 5.7 (4.3-11.1) K/mcL RBC 4.13 (3.82-4.97) M/mcL Hgb 12.2 (11.5-15.4) g/dL Hct 37.5 (35.3-44.9) % MCV 90.8 (83.0-100.0) fL MCH 29.5 (28.0-33.3) pg MCHC 32.5 (31.6-35.5) g/dL RDW 12.9 (11.5-14.5) % Plt Count 261 (140-400) K/mcL MPV 9.8 (9.4-12.4) fL Immature Gran % 0.3 (0-4) % Seg Neutrophils % 89.7 % Lymphocytes % 8.4 % Monocytes % 1.4 % Eosinophils % 0.0 % Basophils % 0.2 % Neutrophils # 5.1 (1.6-8.9) K/mcL Lymphocytes # 0.5 L (0.6-4.6) K/mcL Monocytes # 0.1 (0.0-1.3) K/mcL Eosinophils # 0.0 (0.0-0.6) K/mcL Basophils # 0.0 (0.0-0.2) K/mcL D-Dimer (0-500) ng/mLFEU Sodium 138 (136-145) mEq/L Potassium 4.2 (3.5-5.1) mEq/L Chloride 104 (98-107) mEq/L Carbon Dioxide 29 (23-29) mEq/L BUN 12 (6-20) mg/dL Creatinine 0.84 (0.60-1.20) mg/dL Est GFR ( Amer) > 60 (> 60) Est GFR (Non-Af Amer) > 60 (> 60) BUN/Creatinine Ratio 14 (6-26) Glucose 142 H (70-105) mg/dL Calculated Osmolality 288 (280-300) Lactic Acid (0.5-2.2) mmol/L Calcium 9.6 (8.6-10.3) mg/dL Troponin I < 0.03 (< 0.04) ng/mL B-Natriuretic Peptide 80 (Less than 100) pg/mL Urine Color (Yellow) Urine Clarity (Clear) Urine pH (5.0-8.0) pH Units Ur Specific [place] (1.010-1.025) Urine Protein (Neg-Trace) mg/dL Urine Glucose (UA) (Normal) mg/dL Urine Ketones (Negative) mg/dL Urine Blood (Negative) Urine Nitrite (Negative) Urine Bilirubin (Negative) Urine Urobilinogen (Normal) mg/dL Ur Leukocyte Esterase (Negative) Ur Culture Indicated? (NO) Urine Test (Negative) 04/02/18 04/02/18 04/02/18 Range/Units 13:55 13:55 14:00 WBC (4.3-11.1) K/mcL RBC (3.82-4.97) M/mcL Hgb (11.5-15.4) g/dL Hct (35.3-44.9) % MCV (83.0-100.0) fL MCH (28.0-33.3) pg MCHC (31.6-35.5) g/dL RDW (11.5-14.5) % Plt Count (140-400) K/mcL MPV (9.4-12.4) fL Immature Gran % (0-4) % Seg Neutrophils % % Lymphocytes % % Monocytes % % Eosinophils % % Basophils % % Neutrophils # (1.6-8.9) K/mcL Lymphocytes # (0.6-4.6) K/mcL Monocytes # (0.0-1.3) K/mcL Eosinophils # (0.0-0.6) K/mcL Basophils # (0.0-0.2) K/mcL D-Dimer 585 H (0-500) ng/mLFEU Sodium (136-145) mEq/L Potassium (3.5-5.1) mEq/L Chloride (98-107) mEq/L Carbon Dioxide (23-29) mEq/L BUN (6-20) mg/dL Creatinine (0.60-1.20) mg/dL Est GFR ( Amer) (> 60) Est GFR (Non-Af Amer) (> 60) BUN/Creatinine Ratio (6-26) Glucose (70-105) mg/dL Calculated Osmolality (280-300) Lactic Acid 0.9 (0.5-2.2) mmol/L Calcium (8.6-10.3) mg/dL Troponin I (< 0.04) ng/mL B-Natriuretic Peptide (Less than 100) pg/mL Urine Color Yellow (Yellow) Urine Clarity Clear (Clear) Urine pH 7.0 (5.0-8.0) pH Units Ur Specific [place] 1.007 L (1.010-1.025) Urine Protein Negative (Neg-Trace) mg/dL Urine Glucose (UA) Normal (Normal) mg/dL Urine Ketones Negative (Negative) mg/dL Urine Blood Negative (Negative) Urine Nitrite Negative (Negative) Urine Bilirubin Negative (Negative) Urine Urobilinogen Normal (Normal) mg/dL Ur Leukocyte Esterase Negative (Negative) Ur Culture Indicated? NO (NO) Urine Test (Negative) 04/02/18 Range/Units 14:12 WBC (4.3-11.1) K/mcL RBC (3.82-4.97) M/mcL Hgb (11.5-15.4) g/dL Hct (35.3-44.9) % MCV (83.0-100.0) fL MCH (28.0-33.3) pg MCHC (31.6-35.5) g/dL RDW (11.5-14.5) % Plt Count (140-400) K/mcL MPV (9.4-12.4) fL Immature Gran % (0-4) % Seg Neutrophils % % Lymphocytes % % Monocytes % % Eosinophils % % Basophils % % Neutrophils # (1.6-8.9) K/mcL Lymphocytes # (0.6-4.6) K/mcL Monocytes # (0.0-1.3) K/mcL Eosinophils # (0.0-0.6) K/mcL Basophils # (0.0-0.2) K/mcL D-Dimer (0-500) ng/mLFEU Sodium (136-145) mEq/L Potassium (3.5-5.1) mEq/L Chloride (98-107) mEq/L Carbon Dioxide (23-29) mEq/L BUN (6-20) mg/dL Creatinine (0.60-1.20) mg/dL Est GFR ( Amer) (> 60) Est GFR (Non-Af Amer) (> 60) BUN/Creatinine Ratio (6-26) Glucose (70-105) mg/dL Calculated Osmolality (280-300) Lactic Acid (0.5-2.2) mmol/L Calcium (8.6-10.3) mg/dL Troponin I (< 0.04) ng/mL B-Natriuretic Peptide (Less than 100) pg/mL Urine Color (Yellow) Urine Clarity (Clear) Urine pH (5.0-8.0) pH Units Ur Specific [place] (1.010-1.025) Urine Protein (Neg-Trace) mg/dL Urine Glucose (UA) (Normal) mg/dL Urine Ketones (Negative) mg/dL Urine Blood (Negative) Urine Nitrite (Negative) Urine Bilirubin (Negative) Urine Urobilinogen (Normal) mg/dL Ur Leukocyte Esterase (Negative) Ur Culture Indicated? (NO) Urine Test Negative (Negative) Attestation Statement - Attestation Attestation: I, Earl Fernandez DO, examined this patient [id number] and my medical decision-making was reviewed with Dr. Salomon Myrick, Resident Physician. I agree with the documented findings, disposition and treatment plan as described except to the extent set forth below. Please see my progress notes for details.
[2018-04-02 13:51] LABS: Basophils % 0.2 %; Hematocrit 37.5 % (35.3-44.9); Hemoglobin 12.2 g/dL (11.5-15.4); Immature Granulocytes % 0.3 % (0-4); Lymphocytes # 0.5 K/mcL (0.6-4.6); Lymphocytes % 8.4 %; Mean Corpuscular HGB Conc 32.5 g/dL (31.6-35.5); Mean Corpuscular Hemoglobin 29.5 pg (28.0-33.3); Mean Corpuscular Volume 90.8 fL (83.0-100.0); Mean Platelet Volume 9.8 fL (9.4-12.4); Monocytes # 0.1 K/mcL (0.0-1.3); Monocytes % 1.4 %; Neutrophils # 5.1 K/mcL (1.6-8.9); Platelet Count 261 K/mcL (140-400); Red Blood Count 4.13 M/mcL (3.82-4.97); Red Cell Distribution Width 12.9 % (11.5-14.5); Segmented Neutrophils % 89.7 %
--- NOTE | 2018-04-02 13:52 | Emergency Department Note ---
Disposition Clinical Impression: Acute exacerbation of chronic obstructive airways disease, Cough, Bronchitis Disposition: Admitted As Inpatient Condition: Fair Referrals: Itzel Jorgensen CNP [Primary Care Provider] - Forms: ED Satisfaction Letter Time of Disposition: 17:03 General Adult HPI - General Chief complaint: ED Shortness of Breath/Dyspnea Stated complaint: WESLEY Time Seen by Provider: 04/02/18 13:13 Source: patient - History of Present Illness Pain Scale: 7 - Related Data Home Medications Medication Instructions Recorded Confirmed Amitriptyline [Elavil] 25 mg PO HS 08/19/16 01/07/18 Aspirin Enteric Coated [Aspirin EC] 81 mg PO DAILY 08/19/16 01/07/18 Azelastine 0.1% Nasal [place] 1 spray NS BID 08/19/16 01/07/18 [Astelin] Cholecalciferol (Vitamin D3) 10,000 unit PO MO 08/19/16 01/07/18 [Vitamin D3] Docusate [Colace] 100 mg PO DAILY PRN 08/19/16 01/07/18 Furosemide [Lasix] 20 mg PO DAILY 08/19/16 01/07/18 Melatonin 6 mg PO HS 08/19/16 01/07/18 Metoprolol [Lopressor] 25 mg PO BID 08/19/16 01/07/18 Montelukast [Singulair] 10 mg PO HS 08/19/16 01/07/18 Omeprazole [PriLOSEC] 20 mg PO BID 08/19/16 01/07/18 Tiotropium [Spiriva] 2 puff IH 0700 08/19/16 01/07/18 BuPROPion XL (24 HR) [Wellbutrin 150 mg PO DAILY 06/16/17 01/07/18 XL] Carvedilol [Coreg] 25 mg PO DAILY 06/16/17 01/07/18 Loratadine [Claritin] 10 mg PO DAILY 06/16/17 01/07/18 Mv-Mn/FA/Vit K/Lycop/Lut/Coq10 1 tab PO DAILY 06/16/17 01/07/18 [Daily Multivitamin Capsule] Promethazine [Phenergan] 25 mg PO BID PRN 06/16/17 01/07/18 Dextran 70/Hypromellose 1 drop OP BID 01/07/18 01/07/18 [Artificial Tears] Famotidine [Pepcid] 40 mg PO DAILY 01/07/18 01/07/18 Fluticasone/Vilanterol [Breo 1 each IH DAILY 01/07/18 01/07/18 Ellipta 100-25 Mcg INH] Guaifenesin [Mucinex] 600 mg PO Q12H 01/07/18 01/07/18 Ibuprofen [Motrin] 600 mg PO TIDWM PRN 01/07/18 01/07/18 Ipratropium/Albuterol Neb [Duoneb] 3 ml IH Q6HR 01/07/18 01/07/18 Lurasidone [Latuda] 20 mg PO DAILY 01/07/18 01/07/18 Polyethylene Glycol 3350 [MiraLAX] 17 gm PO DAILY 01/07/18 01/07/18 Trazodone HCl 100 mg PO DAILY 01/07/18 01/07/18 hydrOXYzine HCl [Hydroxyzine HCl] 25 mg PO TID PRN 01/07/18 01/07/18 lamoTRIgine [Lamictal] 150 mg PO HS 01/07/18 01/07/18 Previous Rx's Medication Instructions Recorded Albuterol Sulfate [Albuterol 2 puff IH Q4HR PRN #1 hfa.aer.ad 08/25/16 Inhaler] Atorvastatin [Lipitor] 40 mg PO HS #30 tablet 09/18/16 Benzonatate [Tessalon] 100 mg PO TID #15 capsule 03/17/18 Cephalexin [Keflex] 500 mg PO TID #30 capsule 03/17/18 Ketoconazole 2% CRM [Nizoral Cream] 1 appl TP BID #1 tube 03/17/18 PredniSONE [Deltasone] 20 mg PO DAILY #12 tablet 03/17/18 Promethazine [Phenergan] 12.5 mg PO Q8HR #15 tablet 03/17/18 Doxycycline 100 mg PO BID #14 capsule 03/19/18 Allergies Allergy/AdvReac Type Severity Reaction Status Date / Time oxytetracycline Allergy Swelling Verified 03/19/18 00:12 [From Terramycin] of Lip/Tongue/Throat Past Medical History - Past Medical History Medical history: Reports: CHF, COPD, fibromyalgia, GERD, hyperlipidemia, hypertension, migraine, peripheral artery disease, RA Surgical history: Reports: , hysterectomy Psychiatric history: Reports: anxiety, depression, PTSD CLAIMS ACCOUNT SPECIALIST history: Reports: no CLAIMS ACCOUNT SPECIALIST history - Social History Smoking Status: Current every day smoker Smokeless Tobacco Status: No Alcohol use: Reports: none Drug use: Reports: none Course Vital Signs Temperature 98.4 F 04/02/18 13:07 Pulse Rate 91 04/02/18 13:07 Respiratory Rate 24 04/02/18 13:07 Blood Pressure 158/101 04/02/18 13:07 O2 Sat by Pulse Oximetry 91 04/02/18 13:07 Temperature 98.4 F 04/02/18 13:17 Pulse Rate 83 04/02/18 15:51 Respiratory Rate 19 04/02/18 15:51 Blood Pressure 131/74 04/02/18 15:51 O2 Sat by Pulse Oximetry 96 04/02/18 15:51 Oxygen Delivery Oxygen Delivery Room Air Medical Decision Making - Lab Data Result diagrams: 04/02/18 13:38 04/02/18 13:38 Lab Results 04/02/18 04/02/18 04/02/18 Range/Units 13:38 13:38 13:38 WBC 5.7 (4.3-11.1) K/mcL RBC 4.13 (3.82-4.97) M/mcL Hgb 12.2 (11.5-15.4) g/dL Hct 37.5 (35.3-44.9) % MCV 90.8 (83.0-100.0) fL MCH 29.5 (28.0-33.3) pg MCHC 32.5 (31.6-35.5) g/dL RDW 12.9 (11.5-14.5) % Plt Count 261 (140-400) K/mcL MPV 9.8 (9.4-12.4) fL Immature Gran % 0.3 (0-4) % Seg Neutrophils % 89.7 % Lymphocytes % 8.4 % Monocytes % 1.4 % Eosinophils % 0.0 % Basophils % 0.2 % Neutrophils # 5.1 (1.6-8.9) K/mcL Lymphocytes # 0.5 L (0.6-4.6) K/mcL Monocytes # 0.1 (0.0-1.3) K/mcL Eosinophils # 0.0 (0.0-0.6) K/mcL Basophils # 0.0 (0.0-0.2) K/mcL D-Dimer (0-500) ng/mLFEU Sodium 138 (136-145) mEq/L Potassium 4.2 (3.5-5.1) mEq/L Chloride 104 (98-107) mEq/L Carbon Dioxide 29 (23-29) mEq/L BUN 12 (6-20) mg/dL Creatinine 0.84 (0.60-1.20) mg/dL Est GFR ( Amer) > 60 (> 60) Est GFR (Non-Af Amer) > 60 (> 60) BUN/Creatinine Ratio 14 (6-26) Glucose 142 H (70-105) mg/dL Calculated Osmolality 288 (280-300) Lactic Acid (0.5-2.2) mmol/L Calcium 9.6 (8.6-10.3) mg/dL Troponin I < 0.03 (< 0.04) ng/mL B-Natriuretic Peptide 80 (Less than 100) pg/mL Urine Color (Yellow) Urine Clarity (Clear) Urine pH (5.0-8.0) pH Units Ur Specific [place] (1.010-1.025) Urine Protein (Neg-Trace) mg/dL Urine Glucose (UA) (Normal) mg/dL Urine Ketones (Negative) mg/dL Urine Blood (Negative) Urine Nitrite (Negative) Urine Bilirubin (Negative) Urine Urobilinogen (Normal) mg/dL Ur Leukocyte Esterase (Negative) Ur Culture Indicated? (NO) Urine Test (Negative) 04/02/18 04/02/18 04/02/18 Range/Units 13:55 13:55 14:00 WBC (4.3-11.1) K/mcL RBC (3.82-4.97) M/mcL Hgb (11.5-15.4) g/dL Hct (35.3-44.9) % MCV (83.0-100.0) fL MCH (28.0-33.3) pg MCHC (31.6-35.5) g/dL RDW (11.5-14.5) % Plt Count (140-400) K/mcL MPV (9.4-12.4) fL Immature Gran % (0-4) % Seg Neutrophils % % Lymphocytes % % Monocytes % % Eosinophils % % Basophils % % Neutrophils # (1.6-8.9) K/mcL Lymphocytes # (0.6-4.6) K/mcL Monocytes # (0.0-1.3) K/mcL Eosinophils # (0.0-0.6) K/mcL Basophils # (0.0-0.2) K/mcL D-Dimer 585 H (0-500) ng/mLFEU Sodium (136-145) mEq/L Potassium (3.5-5.1) mEq/L Chloride (98-107) mEq/L Carbon Dioxide (23-29) mEq/L BUN (6-20) mg/dL Creatinine (0.60-1.20) mg/dL Est GFR ( Amer) (> 60) Est GFR (Non-Af Amer) (> 60) BUN/Creatinine Ratio (6-26) Glucose (70-105) mg/dL Calculated Osmolality (280-300) Lactic Acid 0.9 (0.5-2.2) mmol/L Calcium (8.6-10.3) mg/dL Troponin I (< 0.04) ng/mL B-Natriuretic Peptide (Less than 100) pg/mL Urine Color Yellow (Yellow) Urine Clarity Clear (Clear) Urine pH 7.0 (5.0-8.0) pH Units Ur Specific [place] 1.007 L (1.010-1.025) Urine Protein Negative (Neg-Trace) mg/dL Urine Glucose (UA) Normal (Normal) mg/dL Urine Ketones Negative (Negative) mg/dL Urine Blood Negative (Negative) Urine Nitrite Negative (Negative) Urine Bilirubin Negative (Negative) Urine Urobilinogen Normal (Normal) mg/dL Ur Leukocyte Esterase Negative (Negative) Ur Culture Indicated? NO (NO) Urine Test (Negative) 04/02/18 Range/Units 14:12 WBC (4.3-11.1) K/mcL RBC (3.82-4.97) M/mcL Hgb (11.5-15.4) g/dL Hct (35.3-44.9) % MCV (83.0-100.0) fL MCH (28.0-33.3) pg MCHC (31.6-35.5) g/dL RDW (11.5-14.5) % Plt Count (140-400) K/mcL MPV (9.4-12.4) fL Immature Gran % (0-4) % Seg Neutrophils % % Lymphocytes % % Monocytes % % Eosinophils % % Basophils % % Neutrophils # (1.6-8.9) K/mcL Lymphocytes # (0.6-4.6) K/mcL Monocytes # (0.0-1.3) K/mcL Eosinophils # (0.0-0.6) K/mcL Basophils # (0.0-0.2) K/mcL D-Dimer (0-500) ng/mLFEU Sodium (136-145) mEq/L Potassium (3.5-5.1) mEq/L Chloride (98-107) mEq/L Carbon Dioxide (23-29) mEq/L BUN (6-20) mg/dL Creatinine (0.60-1.20) mg/dL Est GFR ( Amer) (> 60) Est GFR (Non-Af Amer) (> 60) BUN/Creatinine Ratio (6-26) Glucose (70-105) mg/dL Calculated Osmolality (280-300) Lactic Acid (0.5-2.2) mmol/L Calcium (8.6-10.3) mg/dL Troponin I (< 0.04) ng/mL B-Natriuretic Peptide (Less than 100) pg/mL Urine Color (Yellow) Urine Clarity (Clear) Urine pH (5.0-8.0) pH Units Ur Specific [place] (1.010-1.025) Urine Protein (Neg-Trace) mg/dL Urine Glucose (UA) (Normal) mg/dL Urine Ketones (Negative) mg/dL Urine Blood (Negative) Urine Nitrite (Negative) Urine Bilirubin (Negative) Urine Urobilinogen (Normal) mg/dL Ur Leukocyte Esterase (Negative) Ur Culture Indicated? (NO) Urine Test Negative (Negative) Attestation Statement - Attestation Attestation: I, Earl Fernandez DO, examined this patient [id number] and my medical decision-making was reviewed with Dr. Salomon Myrick, Resident Physician. I agree with the documented findings, disposition and treatment plan as described except to the extent set forth below. Please see my progress notes for details. 52-year-old female presents emergency room with complaint of shortness of breath. Patient typically uses oxygen at night for known history of COPD and emphysema. She was recently treated with antibiotics one week ago and started on steroids today. She did fill continued increased work of breathing even after leaving her primary care provider's office today. She decided come to the emergency room for evaluation. Patient denies any chest pain, fevers, chills. Denies any headache or vision change. Denies any nausea vomiting or diarrhea. She has not traveled outside the country. She has not had a prolonged immobilization. She is otherwise resting comfortably in the bed. Oxygen is in place on my arrival to the bedside. Pulse ox is normal. Heart rate was normal. Lungs are diminished bilaterally with intermittent wheezing noted. Heart is regular. Abdomen is soft nontender nondistended with no guarding no rigidity no peritoneal symptoms. No point tenderness noted on exam. Extremities appear to be normal with slight pitting edema in the bilateral lower extremities but no coarse crackles noted on auscultation the lungs. Patient has no specific history of congestive heart failure. Detailed workup will be completed here today looking for pulmonary and cardiac related etiology. Chest x-ray CBC chemistry troponin and BNP along with d-dimer will be collected and resulted in the emergency room. Breathing treatments and steroids will be started along with fluids and nausea medication as needed. We will continue to monitor here in the emergency room until treatment course has been established. See detailed documentation of the physical exam, medical intervention, medical decision- making and disposition in the resident physician's note. No critical care pad the patient's treatment course at this time. 1655 Patient has negative laboratory workup at this time. She is still requiring intervention including breathing treatments. Patient did have an elevated d- dimer. CT angiography was ordered and resulted. No acute signs of pulmonary emboli noted. Interstitial disease is consistent from previous evaluations. Because of the patient's failed outpatient management of her COPD and bronchitis she will be recommended for admission. We discussed this at length at the bedside and she is accommodating admission at this time. Patient was discussed with the hospitalist. They reviewed the case and no other concerns or issues. Patient will be admitted for what appears to be COPD exacerbation with failed outpatient management after being provided with steroids and antibiotics at home. Patient will be monitored here in the emergency room until the admission process is completed
[2018-04-02 14:11] LABS: Troponin I < 0.03 ng/mL (< 0.04)
[2018-04-02 14:22] LABS: BUN/Creatinine Ratio 14 (6-26); Blood Urea Nitrogen 12 mg/dL (6-20); Calcium 9.6 mg/dL (8.6-10.3); Carbon Dioxide 29 mEq/L (23-29); Chloride 104 mEq/L (98-107); Glucose 142 mg/dL (70-105); Osmolality,Calculated 288 (280-300); Potassium 4.2 mEq/L (3.5-5.1); Sodium 138 mEq/L (136-145); eGFR For Non-African Americans > 60 (> 60)
[2018-04-02 14:43] LABS: Bilirubin,Urine Negative (Negative); Blood,Urine Negative (Negative); Clarity,Urine Clear (Clear); Color,Urine Yellow (Yellow); Glucose,Urine (UA) Normal (Normal); Ketones,Urine Negative (Negative); Leukocyte Esterase,Urine Negative (Negative); Nitrite,Urine Negative (Negative); Protein,Urine Negative (Neg-Trace); Specific Gravity,Urine 1.007 (1.010-1.025); Urobilinogen,Urine Normal (Normal)
[2018-04-02] MEDS ORDERED: Isovue-370 500 ML INFUS..BTL IV ONE (14:45)
[2018-04-02] MEDS ORDERED: Levofloxacin 750 MG/150 ML 750 MG/150 ML BAG IVPB ONE (16:59)
[2018-04-02] MEDS ORDERED: Naloxone 0.4 MG/ML INJ IVP PRN (17:01)
[2018-04-02] MEDS ORDERED: Furosemide 40 MG/4 ML VIAL IVP ONE (17:06)
--- NOTE | 2018-04-02 17:28 | Internal Med History&Physical ---
Date of Encounter: 04/02/18 Time of Encounter: 17:24 Internal Medicine - H&P: HPI Chief complaint: Shortness of breath Admitted From: Home Plans for Post Hospital Care: Home History of present illness: Ms. Hendricks is a 52 year old female with medical history of CHF, COPD, chronic respiratory failure on oxygen, obstructive sleep apnea on CPAP, hypertension, presented to the emergency room for the second time this week with complaints of shortness of breath. The patient reports worsening shortness of breath more than her baseline associated with cough with productive sputum. She denies fever or chills. She reports that the treatment she received in the emergency room earlier in the week did not help her symptoms hence her presentation. She has also noticed that she is unable to lay flat and always requires at least 2 pillows. She has not noticed worsening leg edema. She reports chest discomfort on the left posterior chest wall. Non-radiating, sharp, worse with cough. No associated diaphoresis or dizziness, no palpitations and no confusion. Even though she takes Lasix at home daily, she is unaware of the fluid and salt restriction in her diet. She denies any other symptoms. She has no neurologic, abdominal, genitourinary symptoms. She denies cough tenderness or recent travels. She denies illicit drug use, is a current every day smoker. Workup in the emergency room shows a normal complete blood count, chemistries at baseline, urine analysis is normal. BNP is normal at 80. D-dimer was elevated at 585, troponin was negative. His x-ray showed interstitial pulmonary edema and CT angiogram ruled out pulmonary embolism. There are no infiltrates suggestive of pneumonia. She will be placed on observation for shortness of breath likely due to COPD exacerbation, she also has a possibility of mild CHF exacerbation. Her oxygen requirement is at her baseline. She is full code. Past Med Surg Social Fam HX - Past Medical History Medical history: CHF, COPD, fibromyalgia, GERD, hyperlipidemia, hypertension, migraine, peripheral artery disease, RA Psychiatric history: anxiety, depression, PTSD - Past Surgical History Surgical History: , hysterectomy Additional surgical history: Heart cath - Social History Smoking Status: Current every day smoker Smokeless Tobacco Status: No Alcohol use: none Drug use: none - Family History Mother Living Status: Hx Family Cardiac Disorders: No Hx Family Respiratory Disorders: Yes Hx Family Cancer: Yes (LUNG) Father Living Status: Hx Family Cardiac Disorders: Yes Internal Medicine - H&P: Meds Amitriptyline [Elavil] 25 mg PO HS 08/19/16 [History] Aspirin Enteric Coated [Aspirin EC] 81 mg PO DAILY 08/19/16 [History] Azelastine 0.1% Nasal [place] [Astelin] 1 spray NS BID 08/19/16 [History] Cholecalciferol (Vitamin D3) [Vitamin D3] 10,000 unit PO MO 08/19/16 [History] Docusate [Colace] 100 mg PO DAILY PRN 08/19/16 [History] Furosemide [Lasix] 20 mg PO DAILY 08/19/16 [History] Melatonin 6 mg PO HS 08/19/16 [History] Metoprolol [Lopressor] 25 mg PO BID 08/19/16 [History] Montelukast [Singulair] 10 mg PO HS 08/19/16 [History] Omeprazole [PriLOSEC] 20 mg PO BID 08/19/16 [History] Tiotropium [Spiriva] 2 puff IH 0700 08/19/16 [History] Albuterol Sulfate [Albuterol Inhaler] 2 puff IH Q4HR PRN #1 hfa.aer.ad 08/25/16 [Rx] Atorvastatin [Lipitor] 40 mg PO HS #30 tablet 09/18/16 [Rx] BuPROPion XL (24 HR) [Wellbutrin XL] 150 mg PO DAILY 06/16/17 [History] Carvedilol [Coreg] 25 mg PO DAILY 06/16/17 [History] Loratadine [Claritin] 10 mg PO DAILY 06/16/17 [History] Mv-Mn/FA/Vit K/Lycop/Lut/Coq10 [Daily Multivitamin Capsule] 1 tab PO DAILY 06/16/17 [History] Promethazine [Phenergan] 25 mg PO BID PRN 06/16/17 [History] Dextran 70/Hypromellose [Artificial Tears] 1 drop OP BID 01/07/18 [History] Famotidine [Pepcid] 40 mg PO DAILY 01/07/18 [History] Fluticasone/Vilanterol [Breo Ellipta 100-25 Mcg INH] 1 each IH DAILY 01/07/18 [History] Guaifenesin [Mucinex] 600 mg PO Q12H 10/04/18 [History] Ibuprofen [Motrin] 600 mg PO TIDWM PRN 01/07/18 [History] Ipratropium/Albuterol Neb [Duoneb] 3 ml IH Q6HR 01/07/18 [History] Lurasidone [Latuda] 20 mg PO DAILY 01/07/18 [History] Polyethylene Glycol 3350 [MiraLAX] 17 gm PO DAILY 01/07/18 [History] Trazodone HCl 100 mg PO DAILY 01/07/18 [History] hydrOXYzine HCl [Hydroxyzine HCl] 25 mg PO TID PRN 01/07/18 [History] lamoTRIgine [Lamictal] 150 mg PO HS 01/07/18 [History] Benzonatate [Tessalon] 100 mg PO TID #15 capsule 03/17/18 [Rx] Cephalexin [Keflex] 500 mg PO TID #30 capsule 03/17/18 [Rx] Ketoconazole 2% CRM [Nizoral Cream] 1 appl TP BID #1 tube 03/17/18 [Rx] PredniSONE [Deltasone] 20 mg PO DAILY #12 tablet 03/17/18 [Rx] Promethazine [Phenergan] 12.5 mg PO Q8HR #15 tablet 03/17/18 [Rx] Doxycycline 100 mg PO BID #14 capsule 03/19/18 [Rx] Allergy/AdvReac Type Severity Reaction Status Date / Time oxytetracycline Allergy Swelling Verified 03/19/18 00:12 [From Terramycin] of Lip/Tongue/Throat All Systems PM: A 10-system review of systems was performed and is negative for pertinent findings except as documented above in the HPI. - Constitutional Constitutional: as per HPI - EENT Eyes: as per HPI Ears: as per HPI Nose, mouth and throat: as per HPI - Cardiovascular Cardiovascular ROS IM: as per HPI - Respiratory Respiratory: as per HPI - Gastrointestinal Gastrointestinal: as per HPI - Genitourinary Genitourinary: as per HPI - Musculoskeletal Musculoskeletal ROS IM: as per HPI - Integumentary Integumentary IM: as per HPI - Neurological Neurological ROS: as per HPI - Hematologic/Lymphatic Hematologic/Lymphatic: as per HPI - Constitutional Vitals: Temp Pulse Resp BP Pulse Ox 98.4 F 83 19 131/74 96 04/02/18 13:17 04/02/18 15:51 04/02/18 15:51 04/02/18 15:51 04/02/18 15:51 General appearance: Present: A&O X 3, morbidly obese, pleasant, no acute distress Exam: see below - Head Head exam: Present: atraumatic, normocephalic - Eye Eye exam: Present: PERRL, conjuntiva pink, sclera anicteric Pupils: Present: PERRL - Neck Neck exam general surgery: Present: supple, trachea midline. Absent: lymphadenopathy - Respiratory Respiratory exam: Present: decreased breath sounds. Absent: rales, rhonchi, wheezes - Cardiovascular Cardiovascular exam: Present: RRR, +S1, +S2. Absent: diastolic murmur, gallop, rubs, systolic murmur - GI/Abdominal GI/Abdominal exam: Present: normal bowel sounds, soft, no peritoneal signs. Absent: distended, tenderness - Extremities Exam Extremities exam: Present: warm, radial pulses palpable and symmetrical. Absent: calf tenderness, cyanotic, pedal edema - Neurological Exam Neurological exam: Present: alert, CN II-XII intact, oriented X3, no focal deficits. Absent: pronater drift, facial droop, speech deficit - Skin Skin exam: Present: dry, intact Internal Med - H&P Results - Labs CBC & Chem 7: 04/02/18 13:38 04/02/18 13:38 Labs: Short CBC 04/02/18 Range/Units 13:38 WBC 5.7 (4.3-11.1) K/mcL Hgb 12.2 (11.5-15.4) g/dL Hct 37.5 (35.3-44.9) % Plt Count 261 (140-400) K/mcL Neutrophils # 5.1 (1.6-8.9) K/mcL BMP 04/02/18 13:38 Sodium 138 Potassium 4.2 Chloride 104 Carbon Dioxide 29 BUN 12 Creatinine 0.84 Glucose 142 H Calcium 9.6 Cardiac Enzymes 04/02/18 Range/Units 13:38 Troponin I < 0.03 (< 0.04) ng/mL Urine 04/02/18 Range/Units 14:00 Urine Color Yellow (Yellow) Urine Clarity Clear (Clear) Urine pH 7.0 (5.0-8.0) pH Units Ur Specific [place] 1.007 L (1.010-1.025) Urine Protein Negative (Neg-Trace) mg/dL Urine Glucose (UA) Normal (Normal) mg/dL - Impressions ITS Impressions Chest X-Ray 04/02/18 13:20 IMPRESSION: Findings of interstitial pulmonary edema. D/ / 04/02/2018 14:09:15 Jacob Louise MD / earnold Interpreting Provider: Jacob Louise MD Chest CTA 04/02/18 14:45 IMPRESSION: No evidence of pulmonary embolism or acute pulmonary abnormality. D/ / Pernell Teague MD / Pernell Teague MD Interpreting Provider: Pernell Teague MD - Assessment and plan (1) Smoker Current Visit: Yes Status: Chronic Assessment and plan: Encouraged cessation (2) DVT prophylaxis Current Visit: Yes Status: Acute Assessment and plan: subcutaneous heparin (3) Morbid obesity with BMI of 40.0-44.9, adult Current Visit: Yes Status: Chronic Assessment and plan: Lifestyle modification (4) Diastolic heart failure Current Visit: Yes Status: Suspected Assessment and plan: She reports a history of heart failure Echocardiogram from 2016 done at this facility's shows an EF of 65% with no evidence of pulmonary hypertension oral significant valvular dysfunction. The patient takes Lasix at home daily. Chest x-ray here with evidence of mild interstitial pulmonary edema, BNP is within normal limit. However patient is morbidly obese Continue Lasix IV 40 mg daily Strict intake and output Fluid restriction to 1500 mL per day. Repeat echocardiogram Troponin is negative, stress test done last year was negative for ischemia. Qualifiers: Heart failure chronicity: acute on chronic Qualified Code(s): I50.33 - Acute on chronic diastolic (congestive) heart failure (5) Acute exacerbation of chronic obstructive airways disease Current Visit: Yes Status: Acute Assessment and plan: Continue steroids, DuoNeb's, and Levaquin. Pulmonary function tests done on 04/2017 shows moderate airway restrictive disease. She likely has an OHS due to morbid obesity Chest x-ray without infiltrates suggestive of pneumonia, CT angiogram negative for pulmonary embolism (6) HTN (hypertension) Current Visit: Yes Status: Chronic Assessment and plan: Continue home medications when confirmed Qualifiers: Hypertension type: essential hypertension Qualified Code(s): I10 - Essential (primary) hypertension (7) HLD (hyperlipidemia) Current Visit: Yes Status: Chronic Assessment and plan: Resume home medications when confirmed Qualifiers: Hyperlipidemia type: unspecified Qualified Code(s): E78.5 - Hyperlipidemia, unspecified (8) Chronic respiratory failure Current Visit: Yes Status: Chronic Assessment and plan: Continue oxygen at home dose Qualifiers: Respiratory failure complication: hypoxia Qualified Code(s): J96.11 - Chronic respiratory failure with hypoxia - Time Spent With Patient Total time spent is greater than 50% in coordination of care (as documented) at patient's floor/unit and/or counseling patient:
[2018-04-02] MEDS ORDERED: Ibuprofen 400 MG TABLET PO ONE (21:12)
[2018-04-03] MEDS: MethylPREDNISolone 40 MG/ML VIAL IVP SCH ×4 (01:20→23:59)
[2018-04-03] MEDS ORDERED: hydrOXYzine pamoate 25 MG CAPSULE PO ONE (02:51)
[2018-04-03 03:49] LABS: Basophils % 0.1 %; Hematocrit 35.8 % (35.3-44.9); Immature Granulocytes % 0.5 % (0-4); Lymphocytes # 0.5 K/mcL (0.6-4.6); Lymphocytes % 4.4 %; Mean Corpuscular HGB Conc 33.5 g/dL (31.6-35.5); Mean Corpuscular Hemoglobin 29.4 pg (28.0-33.3); Mean Corpuscular Volume 87.7 fL (83.0-100.0); Monocytes # 0.1 K/mcL (0.0-1.3); Monocytes % 1.2 %; Neutrophils # 11.2 K/mcL (1.6-8.9); Platelet Count 305 K/mcL (140-400); Red Blood Count 4.08 M/mcL (3.82-4.97); Red Cell Distribution Width 12.9 % (11.5-14.5); Segmented Neutrophils % 93.8 %
[2018-04-03 04:04] LABS: BUN/Creatinine Ratio 17 (6-26); Blood Urea Nitrogen 18 mg/dL (6-20); Calcium 9.8 mg/dL (8.6-10.3); Carbon Dioxide 29 mEq/L (23-29); Chloride 101 mEq/L (98-107); Glucose 170 mg/dL (70-105); Osmolality,Calculated 290 (280-300); Potassium 4.1 mEq/L (3.5-5.1); Sodium 137 mEq/L (136-145); eGFR For Non-African Americans 54 (> 60)
[2018-04-03 07:07] LABS: Adenovirus Not Detected (Not Detect); Bordetella Pertussis Not Detected (Not Detect); Chlamydophila pneumoniae Not Detected (Not Detect); Coronavirus 229E Not Detected (Not Detect); Coronavirus HKU1 Not Detected (Not Detect); Coronavirus NL63 Not Detected (Not Detect); Coronavirus OC43 Not Detected (Not Detect); Human Metapneumovirus Not Detected (Not Detect); Human Rhinovirus/Enterovirus Not Detected (Not Detect); Influenza A Subtype 2009 H1 Not Detected (Not Detect); Influenza A Untypeable Not Detected (Not Detect); Influenza B Not Detected (Not Detect); Mycoplasma pneumoniae Not Detected (Not Detect); Parainfluenza Virus 1 Not Detected (Not Detect); Parainfluenza Virus 2 Not Detected (Not Detect); Parainfluenza Virus 3 Not Detected (Not Detect); Parainfluenza Virus 4 Not Detected (Not Detect); Respiratory Syncytial Virus Not Detected (Not Detect)
[2018-04-03] MEDS: Furosemide 40 MG/4 ML VIAL IVP SCH (09:35)
[2018-04-03] MEDS ORDERED: *HR* HYDROcodone/Acet 5/325 mg TABLET PO ONE ×2 (10:55→23:59)
--- NOTE | 2018-04-03 12:32 | Internal Med Progress Note ---
Hospitalist Progress Note - Encounter Date of Encounter: 04/03/18 Time of Encounter: 12:29 - Subjective Interval History: Pt reports chest discomfort when she takes a breath. She denies fever, chills, N/V or diarrhea. She denies CP. - Exam Vitals: Temp Pulse Resp BP Pulse Ox 98.6 F 102 19 113/76 96 04/03/18 10:57 04/03/18 10:57 04/03/18 10:57 04/03/18 10:57 04/03/18 10:57 Exam: General appearance: Present: A&O X 3, morbidly obese, pleasant, no acute distres s Exam: see below - Head Head exam: Present: atraumatic, normocephalic - Eye Eye exam: Present: PERRL, conjuntiva pink, sclera anicteric Pupils: Present: PERRL - Neck Neck exam general surgery: Present: supple, trachea midline. Absent: lymphadenopathy - Respiratory Respiratory exam: Present: decreased breath sounds. Absent: rales, rhonchi, wheezes - Cardiovascular Cardiovascular exam: Present: RRR, +S1, +S2. Absent: diastolic murmur, gallop, rubs, systolic murmur - GI/Abdominal GI/Abdominal exam: Present: normal bowel sounds, soft, no peritoneal signs. Absent: distended, tenderness - Extremities Exam Extremities exam: Present: warm, radial pulses palpable and symmetrical. Absent: calf tenderness, cyanotic, pedal edema - Neurological Exam Neurological exam: Present: alert, CN II-XII intact, oriented X3, no focal deficits. Absent: pronater drift, facial droop, speech deficit - Skin Skin exam: Present: dry, intact - Assessment and Plan (1) Diastolic heart failure Current Visit: Yes Status: Suspected Assessment and Plan: She reports a history of heart failure. Echocardiogram from 2016 done at this facility's shows an EF of 65% with no evidence of pulmonary hypertension oral significant valvular dysfunction. The patient takes Lasix at home daily. Chest x-ray here with evidence of mild interstitial pulmonary edema, BNP is within normal limit. However patient is morbidly obese. Continue Lasix IV 40 mg daily. Strict intake and output. Fluid restriction to 1500 mL per day. Repeating echocardiogram. Troponin is negative, stress test done last year was negative for ischemia. (2) Acute exacerbation of chronic obstructive airways disease Current Visit: Yes Status: Acute Assessment and Plan: Continue steroids, DuoNeb's, and Levaquin. Pulmonary function tests done on 04/2017 shows moderate airway restrictive disease. She possibly has an OHS due to morbid obesity. Chest x-ray without infiltrates suggestive of pneumonia, CT angiogram negative for pulmonary embolism (3) HTN (hypertension) Current Visit: Yes Status: Chronic Assessment and Plan: Coreg (4) HLD (hyperlipidemia) Current Visit: Yes Status: Chronic Assessment and Plan: On Atorvastatin (5) Chronic respiratory failure Current Visit: Yes Status: Chronic Assessment and Plan: Continue oxygen at home dose (6) Smoker Current Visit: Yes Status: Chronic Assessment and Plan: Encouraged cessation (7) Morbid obesity with BMI of 40.0-44.9, adult Current Visit: Yes Status: Chronic Assessment and Plan: Lifestyle modification such as diet and exercise recommended. 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 The patient reports worsening shortness of breath more than her baseline associated with cough with productive sputum. She denies fever or chills. She reports that the treatment she received in the emergency room earlier in the week did not help her symptoms hence her presentation. She has also noticed that she is unable to lay flat and always requires at least 2 pillows. She has not noticed worsening leg edema. She reports chest discomfort on the left posterior chest wall. Non-radiating, sharp, worse with cough. No associated diaphoresis or dizziness, no palpitations and no confusion. Even though she takes Lasix at home daily, she is unaware of the fluid and salt restriction in her diet. She denies any other symptoms. She has no neurologic, abdominal, genitourinary symptoms. She denies cough tenderness or recent travels. She denies illicit drug use, is a current every day smoker. Workup in the emergency room shows a normal complete blood count, chemistries at baseline, urine analysis is normal. BNP is normal at 80. D-dimer was elevated at 585, troponin was negative. His x-ray showed interstitial pulmonary edema and CT angiogram ruled out pulmonary embolism. There are no infiltrates suggestive of pneumonia. She will be placed on observation for shortness of breath likely due to COPD exacerbation, she also has a possibility of mild CHF exacerbation. Her oxygen requirement is at her baseline. She is full code. - Time Spent with Patient Total time spent is greater than 50% in coordination of care (as documented) at patient's floor/unit and/or counseling patient: less than 15 minutes Plan of Care Discussed with: patient Internal Medicine: Result - Labs CBC & Chem 7: 04/03/18 03:17 04/03/18 03:17 Labs: Short CBC 04/02/18 04/03/18 Range/Units 13:38 03:17 WBC 5.7 11.9 H D (4.3-11.1) K/mcL Hgb 12.2 12.0 (11.5-15.4) g/dL Hct 37.5 35.8 (35.3-44.9) % Plt Count 261 305 (140-400) K/mcL Neutrophils # 5.1 11.2 H (1.6-8.9) K/mcL BMP 04/02/18 04/03/18 13:38 03:17 Sodium 138 137 Potassium 4.2 4.1 Chloride 104 101 Carbon Dioxide 29 29 BUN 12 18 Creatinine 0.84 1.06 Glucose 142 H 170 H Calcium 9.6 9.8 Cardiac Enzymes 04/02/18 Range/Units 13:38 Troponin I < 0.03 (< 0.04) ng/mL Urine 04/02/18 Range/Units 14:00 Urine Color Yellow (Yellow) Urine Clarity Clear (Clear) Urine pH 7.0 (5.0-8.0) pH Units Ur Specific [place] 1.007 L (1.010-1.025) Urine Protein Negative (Neg-Trace) mg/dL Urine Glucose (UA) Normal (Normal) mg/dL - ABG Interpretation ABG results: PT/INR, D-dimer D-Dimer 585 ng/mLFEU (0-500) H 04/02/18 13:55 - Impressions Impressions Chest X-Ray 04/02/18 13:20 IMPRESSION: Findings of interstitial pulmonary edema. D/ / 04/02/2018 14:09:15 Jacob Louise MD / [facility] Interpreting Provider: Jacob Louise MD Chest CTA 04/02/18 14:45 IMPRESSION: No evidence of pulmonary embolism or acute pulmonary abnormality. D/ / Pernell Teague MD / Pernell Teague MD Interpreting Provider: Pernell Teague MD Consult Discharge Plan - Plan Referrals: Itzel Jorgensen, [employer] [Primary Care Provider] - (1) Diastolic heart failure Qualifiers: Heart failure chronicity: acute on chronic Qualified Code(s): I50.33 - Acute on chronic diastolic (congestive) heart failure (3) HTN (hypertension) Qualifiers: Hypertension type: essential hypertension Qualified Code(s): I10 - Essential (primary) hypertension (4) HLD (hyperlipidemia) Qualifiers: Hyperlipidemia type: unspecified Qualified Code(s): E78.5 - Hyperlipidemia, unspecified (5) Chronic respiratory failure Qualifiers: Respiratory failure complication: hypoxia Qualified Code(s): J96.11 - Chronic respiratory failure with hypoxia
[2018-04-03] MEDS: Levofloxacin 750 MG/150 ML 750 MG/150 ML BAG IVPB SCH (17:05)
[2018-04-03] MEDS: Lurasidone 20 MG TABLET PO SCH (21:28)
[2018-04-03] MEDS: traZODone 50 MG TABLET PO PRN (21:28)
[2018-04-03] MEDS: Ketoconazole 2% CRM 15 GM TUBE TP SCH (22:48)
[2018-04-04] MEDS: Furosemide 40 MG/4 ML VIAL IVP SCH (10:14)
[2018-04-04] MEDS: MethylPREDNISolone 40 MG/ML VIAL IVP SCH ×3 (10:14→23:46)
[2018-04-04] MEDS: Famotidine 20 MG TABLET PO SCH (10:14)
[2018-04-04] MEDS: Loratadine 10 MG TABLET PO SCH (10:15)
[2018-04-04] MEDS: BuPROPion XL (24 HR) 150 MG TABLET PO SCH (10:15)
[2018-04-04] MEDS: Aspirin Enteric Coated 81 MG Tablet PO SCH (10:15)
[2018-04-04] MEDS: lamoTRIgine 100 MG TABLET PO SCH (10:15)
[2018-04-04] MEDS: Ketoconazole 2% CRM 15 GM TUBE TP SCH ×2 (10:26→21:14)
[2018-04-04] MEDS: Levofloxacin 750 MG/150 ML 750 MG/150 ML BAG IVPB SCH (16:27)
[2018-04-04] MEDS ORDERED: *HR* HYDROcodone/Acet 5/325 mg TABLET PO ONE (17:45)
--- NOTE | 2018-04-04 18:56 | Internal Med Progress Note ---
Hospitalist Progress Note - Encounter Date of Encounter: 04/05/18 Time of Encounter: 18:56 - Subjective Interval History: Pt reports chest discomfort when she takes a breath. She denies fever, chills, N/V or diarrhea. She denies CP. - Exam Vitals: Temp Pulse Resp BP Pulse Ox 98.6 F 93 16 115/76 98 04/04/18 16:13 04/04/18 16:13 04/04/18 16:13 04/04/18 16:13 04/04/18 16:13 Exam: General appearance: Present: A&O X 3, morbidly obese, pleasant, no acute distress Exam: see below - Head Head exam: Present: atraumatic, normocephalic - Eye Eye exam: Present: PERRL, conjuntiva pink, sclera anicteric Pupils: Present: PERRL - Neck Neck exam general surgery: Present: supple, trachea midline. Absent: lymphadenopathy - Respiratory Respiratory exam: Present: decreased breath sounds. Absent: rales, rhonchi, wheezes - Cardiovascular Cardiovascular exam: Present: RRR, +S1, +S2. Absent: diastolic murmur, gallop, rubs, systolic murmur - GI/Abdominal GI/Abdominal exam: Present: normal bowel sounds, soft, no peritoneal signs. Absent: distended, tenderness - Extremities Exam Extremities exam: Present: warm, radial pulses palpable and symmetrical. Absent: calf tenderness, cyanotic, pedal edema - Neurological Exam Neurological exam: Present: alert, CN II-XII intact, oriented X3, no focal deficits. Absent: pronater drift, facial droop, speech deficit - Skin Skin exam: Present: dry, intact - Assessment and Plan (1) Diastolic heart failure Current Visit: Yes Status: Suspected Assessment and Plan: She reported a history of heart failure. Echocardiogram from 2016 done at this facility's shows an EF of 65% with no evidence of pulmonary hypertension oral significant valvular dysfunction. The patient takes Lasix at home daily. Chest x-ray here with evidence of mild interstitial pulmonary edema, BNP is within normal limit. However patient is morbidly obese. Continue Lasix IV 40 mg daily. Strict intake and output. Fluid restriction to 1500 mL per day. Troponin is negative, stress test done last year was negative for ischemia. Repeat echo EV/EV echocardiogram Impressions: LVEF 70%. Normal LV chamber size, wall thickness and systolic function. Mild left ventricular diastolic dysfunction. Normal right ventricular structure and function. No significant valvular dysfunction. Unable to estimate RVSP due to lack of TR jet (2) Acute exacerbation of chronic obstructive airways disease Current Visit: Yes Status: Acute Assessment and Plan: Continue steroids, DuoNeb's, and Levaquin. Pulmonary function tests done on 04/2017 shows moderate airway restrictive disease. She uses CPAP QHS. Chest x-ray without infiltrates suggestive of pneumonia, CT angiogram negative for pulmonary embolism (3) HTN (hypertension) Current Visit: Yes Status: Chronic Assessment and Plan: Coreg (4) HLD (hyperlipidemia) Current Visit: Yes Status: Chronic Assessment and Plan: On Atorvastatin (5) Chronic respiratory failure Current Visit: Yes Status: Chronic Assessment and Plan: Continue oxygen at home dose (6) Smoker Current Visit: Yes Status: Chronic Assessment and Plan: Encouraged cessation (7) Morbid obesity with BMI of 40.0-44.9, adult Current Visit: Yes Status: Chronic Assessment and Plan: Lifestyle modification such as diet and exercise recommended. 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 The patient reports worsening shortness of breath more than her baseline associated with cough with productive sputum. She denies fever or chills. She reports that the treatment she received in the emergency room earlier in the week did not help her symptoms hence her presentation. She has also noticed that she is unable to lay flat and always requires at least 2 pillows. She has not noticed worsening leg edema. She reports chest discomfort on the left posterior chest wall. Non-radiating, sharp, worse with cough. No associated diaphoresis or dizziness, no palpitations and no confusion. Even though she takes Lasix at home daily, she is unaware of the fluid and salt restriction in her diet. She denies any other symptoms. She has no neurologic, abdominal, genitourinary symptoms. She denies cough tenderness or recent travels. She denies illicit drug use, is a current every day smoker. Workup in the emergency room shows a normal complete blood count, chemistries at baseline, urine analysis is normal. BNP is normal at 80. D-dimer was elevated at 585, troponin was negative. His x-ray showed interstitial pulmonary edema and CT angiogram ruled out pulmonary embolism. There are no infiltrates suggestive of pneumonia. She will be placed on observation for shortness of breath likely due to COPD exacerbation, she also has a possibility of mild CHF exacerbation. Her oxygen requirement is at her baseline. She is full code. - Time Spent with Patient Total time spent is greater than 50% in coordination of care (as documented) at patient's floor/unit and/or counseling patient: less than 15 minutes Plan of Care Discussed with: patient Internal Medicine: Result - Labs CBC & Chem 7: 04/03/18 03:17 04/03/18 03:17 - ABG Interpretation ABG results: PT/INR, D-dimer D-Dimer 585 ng/mLFEU (0-500) H 04/02/18 13:55 Consult Discharge Plan - Plan Additional Instructions: Call [facility] if you need portable tanks delivered when you get home #[phone] Referrals: Itzel Jorgensen, [facility] [Primary Care Provider] - (Appointment has been requested, our offices will call with an appointment time and date.) (1) Diastolic heart failure Qualifiers: Heart failure chronicity: acute on chronic Qualified Code(s): I50.33 - Acute on chronic diastolic (congestive) heart failure (3) HTN (hypertension) Qualifiers: Hypertension type: essential hypertension Qualified Code(s): I10 - Essential (primary) hypertension (4) HLD (hyperlipidemia) Qualifiers: Hyperlipidemia type: unspecified Qualified Code(s): E78.5 - Hyperlipidemia, unspecified (5) Chronic respiratory failure Qualifiers: Respiratory failure complication: hypoxia Qualified Code(s): J96.11 - Chronic respiratory failure with hypoxia
[2018-04-04] MEDS: Lurasidone 20 MG TABLET PO SCH (21:17)
[2018-04-04] MEDS: traZODone 50 MG TABLET PO PRN (21:17)
[2018-04-04] MEDS ORDERED: hydrOXYzine pamoate 25 MG CAPSULE PO ONE (21:28)
[2018-04-04] MEDS ORDERED: traMADol 50 MG TABLET PO ONE (23:55)
[2018-04-05] MEDS: MethylPREDNISolone 40 MG/ML VIAL IVP SCH ×3 (08:13→23:21)
[2018-04-05] MEDS: Furosemide 40 MG/4 ML VIAL IVP SCH (08:13)
[2018-04-05] MEDS: lamoTRIgine 100 MG TABLET PO SCH (08:14)
[2018-04-05] MEDS: Famotidine 20 MG TABLET PO SCH (08:14)
[2018-04-05] MEDS: Loratadine 10 MG TABLET PO SCH (08:14)
[2018-04-05] MEDS: BuPROPion XL (24 HR) 150 MG TABLET PO SCH (08:14)
[2018-04-05] MEDS: Aspirin Enteric Coated 81 MG Tablet PO SCH (08:14)
[2018-04-05] MEDS: Ketoconazole 2% CRM 15 GM TUBE TP SCH ×2 (08:15→22:02)
--- NOTE | 2018-04-05 08:33 | Internal Med Progress Note ---
Hospitalist Progress Note - Encounter Date of Encounter: 04/05/18 Time of Encounter: 08:32 - Subjective Interval History: Pt having audible wheezing today. She also reports having back pain. She reports ribs hurting when she taks a deep breath but not really her chest. She denies fever, chills, N/V or diarrhea. - Exam Vitals: Temp Pulse Resp BP Pulse Ox 97.6 F 86 16 119/74 95 04/05/18 07:14 04/05/18 07:14 04/05/18 07:14 04/05/18 07:14 04/05/18 07:14 Exam: General appearance: Present: A&O X 3, morbidly obese, pleasant, no acute distress Exam: see below - Head Head exam: Present: atraumatic, normocephalic - Eye Eye exam: Present: PERRL, conjuntiva pink, sclera anicteric Pupils: Present: PERRL - Neck Neck exam general surgery: Present: supple, trachea midline. Absent: lymphadenopathy - Respiratory Respiratory exam: Present: decreased breath sounds. Absent: rales, rhonchi, wheezes - Cardiovascular Cardiovascular exam: Present: RRR, +S1, +S2. Absent: diastolic murmur, gallop, rubs, systolic murmur - GI/Abdominal GI/Abdominal exam: Present: normal bowel sounds, soft, no peritoneal signs. Absent: distended, tenderness - Extremities Exam Extremities exam: Present: warm, radial pulses palpable and symmetrical. Absent: calf tenderness, cyanotic, pedal edema - Neurological Exam Neurological exam: Present: alert, CN II-XII intact, oriented X3, no focal deficits. Absent: pronater drift, facial droop, speech deficit - Skin Skin exam: Present: dry, intact - Assessment and Plan (1) Acute exacerbation of chronic obstructive airways disease Current Visit: Yes Status: Acute Assessment and Plan: Continue steroids and Levaquin. Adding Duo neb scheduled and prn. Pulmonary function tests done on 04/2017 shows moderate airway restrictive d isease. She uses CPAP QHS. Chest x-ray without infiltrates suggestive of pneumonia, CT angiogram negative for pulmonary embolism. (2) Diastolic heart failure Current Visit: Yes Status: Suspected Assessment and Plan: She reported a history of heart failure. Echocardiogram from 2016 done at this facility's shows an EF of 65% with no evidence of pulmonary hypertension oral significant valvular dysfunction. The patient takes Lasix at home daily. Chest x-ray here with evidence of mild interstitial pulmonary edema, BNP is within normal limit. However patient is morbidly obese. Continue Lasix IV 40 mg daily. Strict intake and output. Fluid restriction to 1500 mL per day. Troponin is negative, stress test done last year was negative for ischemia. Repeat echo EV/EV echocardiogram Impressions: LVEF 70%. Normal LV chamber size, wall thickness and systolic function. Mild left ventricular diastolic dysfunction. Normal right ventricular structure and function. No significant valvular dysfunction. Unable to estimate RVSP due to lack of TR jet (3) HTN (hypertension) Current Visit: Yes Status: Chronic Assessment and Plan: Coreg (4) HLD (hyperlipidemia) Current Visit: Yes Status: Chronic Assessment and Plan: On Atorvastatin (5) Chronic respiratory failure Current Visit: Yes Status: Chronic Assessment and Plan: Continue oxygen at home dose. CPAP QHS (6) Smoker Current Visit: Yes Status: Chronic Assessment and Plan: Encouraged cessation (7) Morbid obesity with BMI of 40.0-44.9, adult Current Visit: Yes Status: Chronic Assessment and Plan: Lifestyle modification such as diet and exercise recommended. 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 The patient reports worsening shortness of breath more than her baseline associated with cough with productive sputum. She denies fever or chills. She reports that the treatment she received in the emergency room earlier in the week did not help her symptoms hence her presentation. She has also noticed that she is unable to lay flat and always requires at least 2 pillows. She has not noticed worsening leg edema. She reports chest discomfort on the left posterior chest wall. Non-radiating, sharp, worse with cough. No associated diaphoresis or dizziness, no palpitations and no confusion. Even though she takes Lasix at home daily, she is unaware of the fluid and salt restriction in her diet. She denies any other symptoms. She has no neurologic, abdominal, genitourinary symptoms. She denies cough tenderness or recent travels. She denies illicit drug use, is a current every day smoker. Workup in the emergency room shows a normal complete blood count, chemistries at baseline, urine analysis is normal. BNP is normal at 80. D-dimer was elevated at 585, troponin was negative. His x-ray showed interstitial pulmonary edema and CT angiogram ruled out pulmonary embolism. There are no infiltrates suggestive of pneumonia. She will be placed on observation for shortness of breath likely due to COPD exacerbation, she also has a possibility of mild CHF exacerbation. Her oxygen requirement is at her baseline. She is full code. - Time Spent with Patient Total time spent is greater than 50% in coordination of care (as documented) at patient's floor/unit and/or counseling patient: less than 15 minutes Plan of Care Discussed with: patient Internal Medicine: Result - Labs CBC & Chem 7: 04/03/18 03:17 04/03/18 03:17 - ABG Interpretation ABG results: PT/INR, D-dimer D-Dimer 585 ng/mLFEU (0-500) H 04/02/18 13:55 Consult Discharge Plan - Plan Additional Instructions: Call [facility] if you need portable tanks delivered when you get home #[phone] Referrals: Itzel Jorgensen, [employer] [Primary Care Provider] - (Appointment has been requested, our offices will call with an appointment time and date.) (2) Diastolic heart failure Qualifiers: Heart failure chronicity: acute on chronic Qualified Code(s): I50.33 - Acute on chronic diastolic (congestive) heart failure (3) HTN (hypertension) Qualifiers: Hypertension type: essential hypertension Qualified Code(s): I10 - Essential (primary) hypertension (4) HLD (hyperlipidemia) Qualifiers: Hyperlipidemia type: unspecified Qualified Code(s): E78.5 - Hyperlipidemia, unspecified (5) Chronic respiratory failure Qualifiers: Respiratory failure complication: hypoxia Qualified Code(s): J96.11 - Chronic respiratory failure with hypoxia
[2018-04-05] MEDS: *HR* HYDROcodone/Acet 5/325 mg TABLET PO PRN ×2 (11:12→18:13)
[2018-04-05] MEDS ORDERED: Ipratropium/Albuterol Neb 3 ML IH PRN (12:38)
[2018-04-05] MEDS: Ipratropium/Albuterol Neb 3 ML IH SCH ×4 (15:57→22:38)
[2018-04-05] MEDS: Levofloxacin 750 MG/150 ML 750 MG/150 ML BAG IVPB SCH (16:35)
[2018-04-05] MEDS ORDERED: MethylPREDNISolone 40 MG/ML VIAL IVP SCH (17:15)
[2018-04-05] MEDS: traZODone 50 MG TABLET PO PRN (20:39)
[2018-04-05] MEDS: Lurasidone 20 MG TABLET PO SCH (20:39)
[2018-04-06] MEDS: *HR* HYDROcodone/Acet 5/325 mg TABLET PO PRN ×3 (04:12→22:09)
[2018-04-06] MEDS: MethylPREDNISolone 40 MG/ML VIAL IVP SCH ×4 (05:47→23:24)
[2018-04-06] MEDS: Ipratropium/Albuterol Neb 3 ML IH SCH ×4 (05:49→21:35)
[2018-04-06] MEDS: Loratadine 10 MG TABLET PO SCH (08:16)
[2018-04-06] MEDS: Aspirin Enteric Coated 81 MG Tablet PO SCH (08:16)
[2018-04-06] MEDS: lamoTRIgine 100 MG TABLET PO SCH (08:16)
[2018-04-06] MEDS: Famotidine 20 MG TABLET PO SCH (08:16)
[2018-04-06] MEDS: BuPROPion XL (24 HR) 150 MG TABLET PO SCH (08:16)
[2018-04-06] MEDS: Furosemide 20 MG TABLET PO SCH (08:17)
[2018-04-06] MEDS: Ketoconazole 2% CRM 15 GM TUBE TP SCH ×2 (08:21→20:28)
[2018-04-06] MEDS: Levofloxacin 750 MG/150 ML 750 MG/150 ML BAG IVPB SCH (18:06)
--- NOTE | 2018-04-06 19:33 | Internal Med Progress Note ---
Hospitalist Progress Note - Encounter Date of Encounter: 04/06/18 Time of Encounter: 09:00 - Subjective Interval History: Patient feels less shortness of breath. But still weak. Vitals are stable. - Exam Vitals: Temp Pulse Resp BP Pulse Ox 98.8 F 92 18 116/74 97 04/06/18 15:12 04/06/18 15:12 04/06/18 15:21 04/06/18 15:12 04/06/18 15:21 Exam: General appearance: Present: A&O X 3, morbidly obese, pleasant, no acute distress Exam: see below - Head Head exam: Present: atraumatic, normocephalic - Eye Eye exam: Present: PERRL, conjuntiva pink, sclera anicteric Pupils: Present: PERRL - Neck Neck exam general surgery: Present: supple, trachea midline. Absent: lymphadenopathy - Respiratory Respiratory exam: Present: decreased breath sounds. Absent: rales, rhonchi, wheezes - Cardiovascular Cardiovascular exam: Present: RRR, +S1, +S2. Absent: diastolic murmur, gallop, rubs, systolic murmur - GI/Abdominal GI/Abdominal exam: Present: normal bowel sounds, soft, no peritoneal signs. Absent: distended, tenderness - Extremities Exam Extremities exam: Present: warm, radial pulses palpable and symmetrical. Absent: calf tenderness, cyanotic, pedal edema - Neurological Exam Neurological exam: Present: alert, CN II-XII intact, oriented X3, no focal deficits. Absent: pronater drift, facial droop, speech deficit - Skin Skin exam: Present: dry, intact - Assessment and Plan (1) Smoker Current Visit: Yes Status: Chronic Assessment and Plan: Encouraged cessation (2) Morbid obesity with BMI of 40.0-44.9, adult Current Visit: Yes Status: Chronic Assessment and Plan: Lifestyle modification such as diet and exercise recommended. (3) Diastolic heart failure Current Visit: Yes Status: Suspected Assessment and Plan: Appears euvolemic at this point. Continue home medications. (4) Acute exacerbation of chronic obstructive airways disease Current Visit: Yes Status: Acute Assessment and Plan: Continue steroids and Levaquin. Adding Duo neb scheduled and prn. Pulmonary function tests done on 04/2017 shows moderate airway restrictive disease. She uses CPAP QHS. Chest x-ray without infiltrates suggestive of pneumonia, CT angiogram negative for pulmonary embolism. (5) HTN (hypertension) Current Visit: Yes Status: Chronic Assessment and Plan: [place] (6) HLD (hyperlipidemia) Current Visit: Yes Status: Chronic Assessment and Plan: On Atorvastatin (7) Chronic respiratory failure Current Visit: Yes Status: Chronic Assessment and Plan: Continue oxygen at home dose. CPAP QHS (8) Chronic back pain Current Visit: Yes Status: Acute Assessment and Plan: [place] prn and Lidoderm patch DVT Prophylaxis: subcutaneous heparin - Time Spent with Patient Total time spent is greater than 50% in coordination of care (as documented) at patient's floor/unit and/or counseling patient: 30 minutes 25 - 35 minutes Plan of Care Discussed with: patient Internal Medicine: Result - Labs CBC & Chem 7: 04/03/18 03:17 04/03/18 03:17 - ABG Interpretation ABG results: PT/INR, D-dimer D-Dimer 585 ng/mLFEU (0-500) H 04/02/18 13:55 Consult Discharge Plan - Plan Additional Instructions: Call [facility] if you need portable tanks delivered when you get home #[phone] Referrals: Itzel Jorgensen, RESTAURANT HOURLY MANAGER [Primary Care Provider] - (Appointment has been requested, our offices will call with an appointment time and date.) (3) Diastolic heart failure Qualifiers: Heart failure chronicity: acute on chronic Qualified Code(s): I50.33 - Acute on chronic diastolic (congestive) heart failure (5) HTN (hypertension) Qualifiers: Hypertension type: essential hypertension Qualified Code(s): I10 - Essential (primary) hypertension (6) HLD (hyperlipidemia) Qualifiers: Hyperlipidemia type: unspecified Qualified Code(s): E78.5 - Hyperlipidemia, unspecified (7) Chronic respiratory failure Qualifiers: Respiratory failure complication: hypoxia Qualified Code(s): J96.11 - Chronic respiratory failure with hypoxia
[2018-04-06] MEDS: Lurasidone 20 MG TABLET PO SCH (20:23)
[2018-04-06] MEDS: traZODone 50 MG TABLET PO PRN (20:37)
[2018-04-06] MEDS: Nystatin POWDER 30 GM BOTTLE TP SCH (23:27)
[2018-04-07] MEDS: Ipratropium/Albuterol Neb 3 ML IH SCH ×4 (04:24→21:19)
[2018-04-07] MEDS: MethylPREDNISolone 40 MG/ML VIAL IVP SCH (05:40)
[2018-04-07] MEDS: *HR* HYDROcodone/Acet 5/325 mg TABLET PO PRN ×3 (05:44→18:54)
[2018-04-07] MEDS: BuPROPion XL (24 HR) 150 MG TABLET PO SCH (08:20)
[2018-04-07] MEDS: Furosemide 20 MG TABLET PO SCH (08:20)
[2018-04-07] MEDS: Loratadine 10 MG TABLET PO SCH (08:20)
[2018-04-07] MEDS: Aspirin Enteric Coated 81 MG Tablet PO SCH (08:20)
[2018-04-07] MEDS: Famotidine 20 MG TABLET PO SCH (08:20)
[2018-04-07] MEDS: lamoTRIgine 100 MG TABLET PO SCH (08:21)
[2018-04-07] MEDS: Nystatin POWDER 30 GM BOTTLE TP SCH ×2 (09:36→20:47)
--- NOTE | 2018-04-07 09:55 | Discharge Summary ---
- NOTES TO OUTPATIENT PROVIDER Notes to Outpatient Provider: 1. Taper down steroid gradually, 40mg po daily x 3, then 20mg po daily x 3, then 10mg po daily x 5, then stop. 2. Cont CPAP at night for MARCEL, cont NC O2 at day time. Orders not resulted at time of discharge: Pending orders 04/02/18 13:20 ECG 12 lead ECG [ECG] Stat Date of Encounter: 04/09/18 Time of Encounter: 09:00 - Discharge Diagnosis (1) Smoker Priority: Secondary Status: Chronic (2) Morbid obesity with BMI of 40.0-44.9, adult Priority: Secondary Status: Chronic (3) Diastolic heart failure Priority: Secondary Status: Suspected Qualifiers: Heart failure chronicity: acute on chronic Qualified Code(s): I50.33 - Acute on chronic diastolic (congestive) heart failure (4) Acute exacerbation of chronic obstructive airways disease Priority: Primary Status: Acute (5) HTN (hypertension) Priority: Secondary Status: Chronic Qualifiers: Hypertension type: essential hypertension Qualified Code(s): I10 - Essential (primary) hypertension (6) HLD (hyperlipidemia) Priority: Secondary Status: Chronic Qualifiers: Hyperlipidemia type: unspecified Qualified Code(s): E78.5 - Hyperlipidemia, unspecified (7) Chronic respiratory failure Priority: Secondary Status: Chronic Qualifiers: Respiratory failure complication: hypoxia Qualified Code(s): J96.11 - Chronic respiratory failure with hypoxia (8) Chronic back pain Priority: Secondary Status: Acute Qualifiers: Back pain location: low back pain Back pain laterality: midline Sciatica presence: without sciatica Qualified Code(s): M54.5 - Low back pain; G89.29 - Other chronic pain Hospital course: Ms. Hendricks is a 52 year old female admitted for shortness of breath. Patient was treated as COPD exacerbation with antibiotic, steroid, and DuoNeb. After treatment, patient's condition has improved. Shortness of breath get back to her baseline level, which she need 3 L oxygen and home. Patient is generalized weak, PTOT evaluation saw patient, patient will discharge to ECF for further management. I have seen and examined this patient today. Patient is awake alert, oriented 3. In no acute respiratory distress, vitals are stable. No wheezing on exam. Will discharge patient to ECF and continue steroid with tapering down dose and continue bronchodilator, Symbicort, Singulair, and bronchodilator. Discharge discussed with: patient Time spent discussing smoking cessation with patient: 3 to 10 minutes - Time Spent with Patient Total time spent providing and/or coordinating discharge services: 25 minutes Less than 30 minutes - Discharge Medications Prescriptions: RX: HYDROcodone/Acet 5/325 mg [[place] 5-325 mg] 1 tab PO Q6HR PRN 2 Days #8 tablet PRN Reason: Moderate Pain RX: Lidocaine Patch [Lidoderm 5% patch] 1 each TP DAILY 14 Days #14 adh..patch RX: PredniSONE [Deltasone] See Taper PO DAILY #20 tablet Home Medications: Aspirin Enteric Coated [Aspirin EC] 81 mg PO DAILY 08/19/16 [History] Azelastine 0.1% Nasal [place] [Astelin] 1 spray NS BID 08/19/16 [History] Cholecalciferol (Vitamin D3) [Vitamin D3] 10,000 unit PO QWEEK 08/19/16 [History] Docusate [Colace] 100 mg PO DAILY PRN 08/19/16 [History] Furosemide [Lasix] 20 mg PO DAILY 08/19/16 [History] Melatonin 6 mg PO HS PRN 08/19/16 [History] Metoprolol [Lopressor] 25 mg PO BID 08/19/16 [History] Montelukast [Singulair] 10 mg PO QPM 08/19/16 [History] Omeprazole [PriLOSEC] 40 mg PO DAILY 08/19/16 [History] Tiotropium [Spiriva] 2 puff IH DAILY 08/19/16 [History] BuPROPion XL (24 HR) [Wellbutrin Xl] 150 mg PO DAILY 06/16/17 [History] Loratadine [Claritin] 10 mg PO DAILY 06/16/17 [History] Dextran 70/Hypromellose [Artificial Tears] 1 drop OP BID 01/07/18 [History] Famotidine [Pepcid] 40 mg PO DAILY 01/07/18 [History] Fluticasone/Vilanterol [Breo Ellipta 100-25 Mcg INH] 1 puff IH DAILY 01/07/18 [History] Guaifenesin [Mucinex] 600 mg PO Q12H PRN 01/07/18 [History] Ibuprofen [Motrin] 600 mg PO TIDWM PRN 01/07/18 [History] Ipratropium/Albuterol Neb [Duoneb] 3 ml IH Q6HR 01/07/18 [History] Polyethylene Glycol 3350 [MiraLAX] 17 gm PO DAILY 01/07/18 [History] Trazodone HCl 100 - 200 mg PO HS PRN 01/07/18 [History] hydrOXYzine HCl [Hydroxyzine HCl] 25 mg PO TID PRN 01/07/18 [History] lamoTRIgine [Lamictal] 100 mg PO DAILY 01/07/18 [History] Ketoconazole 2% CRM [Nizoral Cream] 1 appl TP BID #1 tube 03/17/18 [Rx] Promethazine [Phenergan] 12.5 mg PO Q8HR #15 tablet 03/17/18 [Rx] Acetaminophen [Non-Aspirin] 650 mg PO Q4H PRN 04/02/18 [History] Albuterol Sulfate [Ventolin Hfa] 2 puff IN Q4H PRN 04/02/18 [History] Amitriptyline [Elavil] 50 mg PO DAILY 04/02/18 [History] Atorvastatin [Lipitor] 40 mg PO DAILY 04/02/18 [History] Docosanol [Abreva] 1 appl TP BID 04/02/18 [History] Lurasidone HCl [Latuda] 60 mg PO DAILY 04/02/18 [History] Multivit with Calcium,Iron,Min [One Daily Women's] 1 tab PO DAILY 04/02/18 [History] Nitroglycerin 0.4 mg PO AD 04/02/18 [History] Lidocaine Patch [Lidoderm 5% patch] 1 each TP DAILY 14 Days #14 adh..patch 04/07/18 [Rx] PredniSONE [Deltasone] See Taper PO DAILY #20 tablet 04/07/18 [Rx] HYDROcodone/Acet 5/325 mg [[place] 5-325 mg] 1 tab PO Q6HR PRN 2 Days #8 tablet 04/09/18 [Rx] Allergies/Adverse Reactions: Allergy/AdvReac Type Severity Reaction Status Date / Time oxytetracycline Allergy Swelling Verified 04/02/18 21:40 [From Terramycin] of Lip/Tongue/Throat Date of admission: 04/05/18 16:45 Primary care physician: Itzel Jorgensen CNP Discharging clinician: Jhon Geiger Anticipated date of discharge: 04/09/18 - Constitutional Vitals: Temp Pulse Resp BP Pulse Ox 97.5 F L 87 16 115/72 97 04/07/18 07:28 04/07/18 07:28 04/07/18 07:28 04/07/18 07:28 04/07/18 08:27 General appearance: Present: A&O X 3, morbidly obese, pleasant, no acute distress Exam: General appearance: Present: A&O X 3, morbidly obese, pleasant, no acute distress Exam: see below - Head Head exam: Present: atraumatic, normocephalic - Eye Eye exam: Present: PERRL, conjuntiva pink, sclera anicteric Pupils: Present: PERRL - Neck Neck exam general surgery: Present: supple, trachea midline. Absent: lymphadenopathy - Respiratory Respiratory exam: Present: decreased breath sounds. Absent: rales, rhonchi, wheezes - Cardiovascular Cardiovascular exam: Present: RRR, +S1, +S2. Absent: diastolic murmur, gallop, rubs, systolic murmur - GI/Abdominal GI/Abdominal exam: Present: normal bowel sounds, soft, no peritoneal signs. Absent: distended, tenderness - Extremities Exam Extremities exam: Present: warm, radial pulses palpable and symmetrical. Absent: calf tenderness, cyanotic, pedal edema - Neurological Exam Neurological exam: Present: alert, CN II-XII intact, oriented X3, no focal deficits. Absent: pronater drift, facial droop, speech deficit - Skin Skin exam: Present: dry, intact - Patient Status Disposition: Transfer Inpatient Rehab Fac Condition: Fair Functional capacity at discharge: uses cane/walker Overall status at discharge: patient is back to baseline - Discharge Instructions Follow Up With: Itzel Jorgensen CNP [Primary Care Provider] - 04/15/18 2:30 pm () Forms: Jury Excuse Additional Instructions: Call [facility] if you need portable tanks delivered when you get home #[phone] - Diet and Activity Activity: as per physical therapy Diet: advance to your usual diet, low fat, low cholesterol
--- NOTE | 2018-04-07 14:22 | Internal Med Progress Note ---
Hospitalist Progress Note - Encounter Date of Encounter: 04/07/18 Time of Encounter: 09:00 - Subjective Interval History: Patient feels less shortness of breath. But still weak. Vitals are stable. Need NC O2 at 3L /min - Exam Vitals: Temp Pulse Resp BP Pulse Ox 97.9 F 98 16 112/63 95 04/07/18 11:47 04/07/18 11:47 04/07/18 11:47 04/07/18 11:47 04/07/18 11:47 Exam: General appearance: Present: A&O X 3, morbidly obese, pleasant, no acute distress Exam: see below - Head Head exam: Present: atraumatic, normocephalic - Eye Eye exam: Present: PERRL, conjuntiva pink, sclera anicteric Pupils: Present: PERRL - Neck Neck exam general surgery: Present: supple, trachea midline. Absent: lymphaden opathy - Respiratory Respiratory exam: Present: decreased breath sounds. Absent: rales, rhonchi, wheezes - Cardiovascular Cardiovascular exam: Present: RRR, +S1, +S2. Absent: diastolic murmur, gallop, rubs, systolic murmur - GI/Abdominal GI/Abdominal exam: Present: normal bowel sounds, soft, no peritoneal signs. Absent: distended, tenderness - Extremities Exam Extremities exam: Present: warm, radial pulses palpable and symmetrical. Abse nt: calf tenderness, cyanotic, pedal edema - Neurological Exam Neurological exam: Present: alert, CN II-XII intact, oriented X3, no focal deficits. Absent: pronater drift, facial droop, speech deficit - Skin Skin exam: Present: dry, intact - Assessment and Plan (1) Smoker Current Visit: Yes Status: Chronic Assessment and Plan: Encouraged cessation (2) Morbid obesity with BMI of 40.0-44.9, adult Current Visit: Yes Status: Chronic Assessment and Plan: Lifestyle modification such as diet and exercise recommended. (3) Diastolic heart failure Current Visit: Yes Status: Suspected Assessment and Plan: Appears euvolemic at this point. Continue home medications. Cont Fluid restriction diet (4) Acute exacerbation of chronic obstructive airways disease Current Visit: Yes Status: Acute Assessment and Plan: Continue steroids and Levaquin. Adding Duo neb scheduled and prn. Pulmonary function tests done on 04/2017 shows moderate airway restrictive disease. She uses CPAP QHS. Chest x-ray without infiltrates suggestive of pneumonia, CT angiogram negative for pulmonary embolism. Taper down steroid, PT/OT evaluation. (5) HTN (hypertension) Current Visit: Yes Status: Chronic Assessment and Plan: Metoprolol 25mg po bid. BP is stable. (6) HLD (hyperlipidemia) Current Visit: Yes Status: Chronic Assessment and Plan: On Atorvastatin (7) Chronic respiratory failure Current Visit: Yes Status: Chronic Assessment and Plan: Continue oxygen at home dose. CPAP QHS (8) Chronic back pain Current Visit: Yes Status: Acute Assessment and Plan: [place] prn and Lidoderm patch DVT Prophylaxis: subcutaneous heparin - Time Spent with Patient Total time spent is greater than 50% in coordination of care (as documented) at patient's floor/unit and/or counseling patient: 30 min 25 - 35 minutes Internal Medicine: Result - Labs CBC & Chem 7: 04/03/18 03:17 04/03/18 03:17 - ABG Interpretation ABG results: PT/INR, D-dimer D-Dimer 585 ng/mLFEU (0-500) H 04/02/18 13:55 Consult Discharge Plan - Plan Additional Instructions: Call [facility] if you need portable tanks delivered when you get home #[phone] Referrals: Itzel Jorgensen, LOAD TEST MECHANIC [Primary Care Provider] - 04/15/18 2:30 pm () Prescriptions: RX: Lidocaine Patch [Lidoderm 5% patch] 1 each TP DAILY 14 Days #14 adh..patch RX: PredniSONE [Deltasone] See Taper PO DAILY #20 tablet (3) Diastolic heart failure Qualifiers: Heart failure chronicity: acute on chronic Qualified Code(s): I50.33 - Acute on chronic diastolic (congestive) heart failure (5) HTN (hypertension) Qualifiers: Hypertension type: essential hypertension Qualified Code(s): I10 - Essential (primary) hypertension (6) HLD (hyperlipidemia) Qualifiers: Hyperlipidemia type: unspecified Qualified Code(s): E78.5 - Hyperlipidemia, unspecified (7) Chronic respiratory failure Qualifiers: Respiratory failure complication: hypoxia Qualified Code(s): J96.11 - Chronic respiratory failure with hypoxia (8) Chronic back pain Qualifiers: Back pain location: low back pain Back pain laterality: midline Sciatica presence: without sciatica Qualified Code(s): M54.5 - Low back pain; G89.29 - Other chronic pain
[2018-04-07] MEDS: Levofloxacin 750 MG/150 ML 750 MG/150 ML BAG IVPB SCH (17:19)
[2018-04-07] MEDS: traZODone 50 MG TABLET PO PRN (20:35)
[2018-04-07] MEDS: Lurasidone 20 MG TABLET PO SCH (20:37)
[2018-04-08] MEDS: Ipratropium/Albuterol Neb 3 ML IH SCH ×4 (03:32→22:11)
[2018-04-08 03:52] LABS: Basophils % 0.4 %; Eosinophils % 0.1 %; Hematocrit 38.5 % (35.3-44.9); Hemoglobin 12.6 g/dL (11.5-15.4); Immature Granulocytes % 2.5 % (0-4); Lymphocytes # 1.5 K/mcL (0.6-4.6); Lymphocytes % 14.3 %; Mean Corpuscular HGB Conc 32.7 g/dL (31.6-35.5); Mean Corpuscular Hemoglobin 29.4 pg (28.0-33.3); Mean Platelet Volume 9.8 fL (9.4-12.4); Monocytes # 1.2 K/mcL (0.0-1.3); Monocytes % 11.9 %; Neutrophils # 7.3 K/mcL (1.6-8.9); Platelet Count 281 K/mcL (140-400); Red Blood Count 4.28 M/mcL (3.82-4.97); Red Cell Distribution Width 13.5 % (11.5-14.5); Segmented Neutrophils % 70.8 %
[2018-04-08] MEDS: *HR* HYDROcodone/Acet 5/325 mg TABLET PO PRN ×3 (04:00→18:15)
[2018-04-08 04:13] LABS: BUN/Creatinine Ratio 32 (6-26); Blood Urea Nitrogen 32 mg/dL (6-20); Carbon Dioxide 35 mEq/L (23-29); Chloride 99 mEq/L (98-107); Glucose 117 mg/dL (70-105); Osmolality,Calculated 290 (280-300); Potassium 4.1 mEq/L (3.5-5.1); Sodium 136 mEq/L (136-145); eGFR For Non-African Americans 58 (> 60)
[2018-04-08] MEDS: Aspirin Enteric Coated 81 MG Tablet PO SCH (09:26)
[2018-04-08] MEDS: Famotidine 20 MG TABLET PO SCH (09:26)
[2018-04-08] MEDS: lamoTRIgine 100 MG TABLET PO SCH (09:26)
[2018-04-08] MEDS: Furosemide 20 MG TABLET PO SCH (09:26)
[2018-04-08] MEDS: Loratadine 10 MG TABLET PO SCH (09:26)
[2018-04-08] MEDS: BuPROPion XL (24 HR) 150 MG TABLET PO SCH (09:26)
[2018-04-08] MEDS: predniSONE 20 MG TABLET PO SCH (09:26)
[2018-04-08] MEDS: Ibuprofen 600 MG TABLET PO PRN (09:27)
[2018-04-08] MEDS: Nystatin POWDER 30 GM BOTTLE TP SCH ×2 (09:33→20:27)
--- NOTE | 2018-04-08 15:01 | Internal Med Progress Note ---
Hospitalist Progress Note - Encounter Date of Encounter: 04/08/18 Time of Encounter: 09:00 - Subjective Interval History: Patient feels less shortness of breath. But still weak and has exertional dyspnea. Vitals are stable. Need NC O2 at 3L /min which she also use at home. Live alone, need ECF discharge, SW is working on it. - Exam Vitals: Temp Pulse Resp BP Pulse Ox 97.7 F 79 16 95/61 97 04/08/18 11:18 04/08/18 11:18 04/08/18 11:18 04/08/18 11:18 04/08/18 11:18 Exam: General appearance: Present: A&O X 3, morbidly obese, pleasant, no acute distress Exam: see below - Head Head exam: Present: atraumatic, normocephalic - Eye Eye exam: Present: PERRL, conjuntiva pink, sclera anicteric Pupils: Present: PERRL - Neck Neck exam general surgery: Present: supple, trachea midline. Absent: ly mphadenopathy - Respiratory Respiratory exam: Present: decreased breath sounds. Absent: rales, rhonchi, wheezes - Cardiovascular Cardiovascular exam: Present: RRR, +S1, +S2. Absent: diastolic murmur, gallop, rubs, systolic murmur - GI/Abdominal GI/Abdominal exam: Present: normal bowel sounds, soft, no peritoneal signs. Absent: distended, tenderness - Extremities Exam Extremities exam: Present: warm, radial pulses palpable and symmetrical. Absent: calf tenderness, cyanotic, pedal edema - Neurological Exam Neurological exam: Present: alert, CN II-XII intact, oriented X3, no focal deficits. Absent: pronater drift, facial droop, speech deficit - Skin Skin exam: Present: dry, intact - Assessment and Plan (1) Smoker Current Visit: Yes Status: Chronic Assessment and Plan: Encouraged cessation (2) Morbid obesity with BMI of 40.0-44.9, adult Current Visit: Yes Status: Chronic Assessment and Plan: Lifestyle modification such as diet and exercise recommended. (3) Diastolic heart failure Current Visit: Yes Status: Suspected Assessment and Plan: Appears euvolemic at this point. Continue home medications. Cont Fluid restriction diet (4) Acute exacerbation of chronic obstructive airways disease Current Visit: Yes Status: Acute Assessment and Plan: Continue steroids and Levaquin. Adding Duo neb scheduled and prn. Pulmonary function tests done on 04/2017 shows moderate airway restrictive disease. She uses CPAP QHS. Chest x-ray without infiltrates suggestive of pneumonia, CT angiogram negative for pulmonary embolism. Taper down steroid, PT/OT evaluation. (5) HTN (hypertension) Current Visit: Yes Status: Chronic Assessment and Plan: Metoprolol 25mg po bid. BP is stable. (6) HLD (hyperlipidemia) Current Visit: Yes Status: Chronic Assessment and Plan: On Atorvastatin (7) Chronic respiratory failure Current Visit: Yes Status: Chronic Assessment and Plan: Continue oxygen at home dose. CPAP QHS (8) Chronic back pain Current Visit: Yes Status: Acute Assessment and Plan: [place] prn and Lidoderm patch DVT Prophylaxis: subcutaneous heparin - Time Spent with Patient Total time spent is greater than 50% in coordination of care (as documented) at patient's floor/unit and/or counseling patient: 30 min 25 - 35 minutes Plan of Care Discussed with: patient Internal Medicine: Result - Labs CBC & Chem 7: 04/08/18 03:23 04/08/18 03:23 Labs: Short CBC 04/08/18 Range/Units 03:23 WBC 10.3 (4.3-11.1) K/mcL Hgb 12.6 (11.5-15.4) g/dL Hct 38.5 (35.3-44.9) % Plt Count 281 (140-400) K/mcL Neutrophils # 7.3 (1.6-8.9) K/mcL BMP 04/08/18 03:23 Sodium 136 Potassium 4.1 Chloride 99 Carbon Dioxide 35 H BUN 32 H Creatinine 0.99 Glucose 117 H Calcium 9.0 - ABG Interpretation ABG results: PT/INR, D-dimer D-Dimer 585 ng/mLFEU (0-500) H 04/02/18 13:55 Consult Discharge Plan - Plan Additional Instructions: Call [facility] if you need portable tanks delivered when you get home #[phone] Referrals: Itzel Jorgensen, INFORMATION SYSTEMS OPERATOR [Primary Care Provider] - 04/15/18 2:30 pm () Prescriptions: Lidocaine Patch [Lidoderm 5% patch] 1 each TP DAILY 14 Days #14 adh..patch PredniSONE [Deltasone] See Taper PO DAILY #20 tablet ___ (3) Diastolic heart failure Qualifiers: Heart failure chronicity: acute on chronic Qualified Code(s): I50.33 - Acute on chronic diastolic (congestive) heart failure (5) HTN (hypertension) Qualifiers: Hypertension type: essential hypertension Qualified Code(s): I10 - Essential (primary) hypertension (6) HLD (hyperlipidemia) Qualifiers: Hyperlipidemia type: unspecified Qualified Code(s): E78.5 - Hyperlipidemia, unspecified (7) Chronic respiratory failure Qualifiers: Respiratory failure complication: hypoxia Qualified Code(s): J96.11 - Chronic respiratory failure with hypoxia (8) Chronic back pain Qualifiers: Back pain location: low back pain Back pain laterality: midline Sciatica presence: without sciatica Qualified Code(s): M54.5 - Low back pain; G89.29 - Other chronic pain
[2018-04-08] MEDS: levoFLOXacin 750 MG TABLET PO SCH (16:32)
[2018-04-08] MEDS: Lurasidone 20 MG TABLET PO SCH (20:20)
[2018-04-08] MEDS: traZODone 50 MG TABLET PO PRN (20:21)
[2018-04-08] MEDS: Melatonin 3 MG TABLET PO PRN (20:21)
[2018-04-09] MEDS: *HR* HYDROcodone/Acet 5/325 mg TABLET PO PRN ×3 (02:35→18:34)
[2018-04-09] MEDS: Ipratropium/Albuterol Neb 3 ML IH SCH ×4 (04:56→21:36)
[2018-04-09] MEDS: predniSONE 20 MG TABLET PO SCH (08:50)
[2018-04-09] MEDS: Aspirin Enteric Coated 81 MG Tablet PO SCH (08:51)
[2018-04-09] MEDS: Loratadine 10 MG TABLET PO SCH (08:51)
[2018-04-09] MEDS: BuPROPion XL (24 HR) 150 MG TABLET PO SCH (08:51)
[2018-04-09] MEDS: Famotidine 20 MG TABLET PO SCH (08:51)
[2018-04-09] MEDS: Furosemide 20 MG TABLET PO SCH (08:51)
[2018-04-09] MEDS: lamoTRIgine 100 MG TABLET PO SCH (08:51)
[2018-04-09] MEDS: Nystatin POWDER 30 GM BOTTLE TP SCH ×2 (08:52→21:13)
--- NOTE | 2018-04-09 10:07 | Internal Med Progress Note ---
Hospitalist Progress Note - Encounter Date of Encounter: 04/09/18 Time of Encounter: 09:00 - Subjective Interval History: Patient feels fine today. SOB is at her baseline. Vitals are stable. Need NC O2 at 3L /min which she also use at home. Will d/c to ECF on tapering down steroid today. Discharge summary is updated. - Exam Vitals: Temp Pulse Resp BP Pulse Ox 97.5 F L 81 18 111/72 99 04/09/18 07:42 04/09/18 07:42 04/09/18 07:42 04/09/18 07:42 04/09/18 07:42 Exam: General appearance: Present: A&O X 3, morbidly obese, pleasant, no acute distress Exam: see below - Head Head exam: Present: atraumatic, normocephalic - Eye Eye exam: Present: PERRL, conjuntiva pink, sclera anicteric Pupils: Present: PERRL - Neck Neck exam general surgery: Present: supple, trachea midline. Absent: lymphade nopathy - Respiratory Respiratory exam: Present: decreased breath sounds. Absent: rales, rhonchi, wheezes - Cardiovascular Cardiovascular exam: Present: RRR, +S1, +S2. Absent: diastolic murmur, gallop, rubs, systolic murmur - GI/Abdominal GI/Abdominal exam: Present: normal bowel sounds, soft, no peritoneal signs. Absent: distended, tenderness - Extremities Exam Extremities exam: Present: warm, radial pulses palpable and symmetrical. Abs ent: calf tenderness, cyanotic, pedal edema - Neurological Exam Neurological exam: Present: alert, CN II-XII intact, oriented X3, no focal deficits. Absent: pronater drift, facial droop, speech deficit - Skin Skin exam: Present: dry, intact - Assessment and Plan (1) Smoker Current Visit: Yes Status: Chronic Assessment and Plan: Encouraged cessation (2) Morbid obesity with BMI of 40.0-44.9, adult Current Visit: Yes Status: Chronic Assessment and Plan: Lifestyle modification such as diet and exercise recommended. (3) Diastolic heart failure Current Visit: Yes Status: Suspected Assessment and Plan: Appears euvolemic at this point. Continue home medications. Cont Fluid restriction diet (4) Acute exacerbation of chronic obstructive airways disease Current Visit: Yes Status: Acute Assessment and Plan: Continue steroids and Levaquin. Adding Duo neb scheduled and prn. Pulmonary function tests done on 04/2017 shows moderate airway restrictive disease. She uses CPAP QHS. Chest x-ray without infiltrates suggestive of pneumonia, CT angiogram negative for pulmonary embolism. Taper down steroid, PT/OT evaluation. (5) HTN (hypertension) Current Visit: Yes Status: Chronic Assessment and Plan: Metoprolol 25mg po bid. BP is stable. (6) HLD (hyperlipidemia) Current Visit: Yes Status: Chronic Assessment and Plan: On Atorvastatin (7) Chronic respiratory failure Current Visit: Yes Status: Chronic Assessment and Plan: Continue oxygen at home dose. CPAP QHS (8) Chronic back pain Current Visit: Yes Status: Acute Assessment and Plan: [place] prn and Lidoderm patch DVT Prophylaxis: subcutaneous heparin - Time Spent with Patient Total time spent is greater than 50% in coordination of care (as documented) at patient's floor/unit and/or counseling patient: 30 min 25 - 35 minutes Plan of Care Discussed with: patient Internal Medicine: Result - Labs CBC & Chem 7: 04/08/18 03:23 04/08/18 03:23 - ABG Interpretation ABG results: PT/INR, D-dimer D-Dimer 585 ng/mLFEU (0-500) H 04/02/18 13:55 Consult Discharge Plan - Plan Additional Instructions: Call [facility] if you need portable tanks delivered when you get home #[phone] Referrals: Itzel Jorgensen, [employer] [Primary Care Provider] - 04/15/18 2:30 pm () Prescriptions: RX: Lidocaine Patch [Lidoderm 5% patch] 1 each TP DAILY 14 Days #14 adh..patch RX: PredniSONE [Deltasone] See Taper PO DAILY #20 tablet (3) Diastolic heart failure Qualifiers: Heart failure chronicity: acute on chronic Qualified Code(s): I50.33 - Acute on chronic diastolic (congestive) heart failure (5) HTN (hypertension) Qualifiers: Hypertension type: essential hypertension Qualified Code(s): I10 - Essential (primary) hypertension (6) HLD (hyperlipidemia) Qualifiers: Hyperlipidemia type: unspecified Qualified Code(s): E78.5 - Hyperlipidemia, unspecified (7) Chronic respiratory failure Qualifiers: Respiratory failure complication: hypoxia Qualified Code(s): J96.11 - Chronic respiratory failure with hypoxia (8) Chronic back pain Qualifiers: Back pain location: low back pain Back pain laterality: midline Sciatica presence: without sciatica Qualified Code(s): M54.5 - Low back pain; G89.29 - Other chronic pain
--- NOTE | 2018-04-09 10:24 | Physician Discharge Referral ---
ExtendedCare Referral Info Transfer To: [facility] Provider in Charge after Transfer: Other - Diagnosis (1) Smoker Status: Chronic (2) Morbid obesity with BMI of 40.0-44.9, adult Status: Chronic (3) Diastolic heart failure Status: Suspected (4) Acute exacerbation of chronic obstructive airways disease Status: Acute (5) HTN (hypertension) Status: Chronic (6) HLD (hyperlipidemia) Status: Chronic (7) Chronic respiratory failure Status: Chronic (8) Chronic back pain Status: Acute - Transfer Medications Prescriptions: HYDROcodone/Acet 5/325 mg [[place] 5-325 mg] 1 tab PO Q6HR PRN 2 Days #8 tablet PRN Reason: Moderate Pain Lidocaine Patch [Lidoderm 5% patch] 1 each TP DAILY 14 Days #14 adh..patch PredniSONE [Deltasone] See Taper PO DAILY #20 tablet Home Medications: Aspirin Enteric Coated [Aspirin EC] 81 mg PO DAILY 08/19/16 [History] Azelastine 0.1% Nasal [place] [Astelin] 1 spray NS BID 08/19/16 [History] Cholecalciferol (Vitamin D3) [Vitamin D3] 10,000 unit PO QWEEK 08/19/16 [History] Docusate [Colace] 100 mg PO DAILY PRN 08/19/16 [History] Furosemide [Lasix] 20 mg PO DAILY 08/19/16 [History] Melatonin 6 mg PO HS PRN 08/19/16 [History] Metoprolol [Lopressor] 25 mg PO BID 08/19/16 [History] Montelukast [Singulair] 10 mg PO QPM 08/19/16 [History] Omeprazole [PriLOSEC] 40 mg PO DAILY 08/19/16 [History] Tiotropium [Spiriva] 2 puff IH DAILY 08/19/16 [History] BuPROPion XL (24 HR) [Wellbutrin Xl] 150 mg PO DAILY 06/16/17 [History] Loratadine [Claritin] 10 mg PO DAILY 06/16/17 [History] Dextran 70/Hypromellose [Artificial Tears] 1 drop OP BID 01/07/18 [History] Famotidine [Pepcid] 40 mg PO DAILY 01/07/18 [History] Fluticasone/Vilanterol [Breo Ellipta 100-25 Mcg INH] 1 puff IH DAILY 01/07/18 [History] Guaifenesin [Mucinex] 600 mg PO Q12H PRN 01/07/18 [History] Ibuprofen [Motrin] 600 mg PO TIDWM PRN 01/07/18 [History] Ipratropium/Albuterol Neb [Duoneb] 3 ml IH Q6HR 01/07/18 [History] Polyethylene Glycol 3350 [MiraLAX] 17 gm PO DAILY 01/07/18 [History] Trazodone HCl 100 - 200 mg PO HS PRN 01/07/18 [History] hydrOXYzine HCl [Hydroxyzine HCl] 25 mg PO TID PRN 01/07/18 [History] lamoTRIgine [Lamictal] 100 mg PO DAILY 01/07/18 [History] Ketoconazole 2% CRM [Nizoral Cream] 1 appl TP BID #1 tube 03/17/18 [Rx] Promethazine [Phenergan] 12.5 mg PO Q8HR #15 tablet 03/17/18 [Rx] Acetaminophen [Non-Aspirin] 650 mg PO Q4H PRN 04/02/18 [History] Albuterol Sulfate [Ventolin Hfa] 2 puff IN Q4H PRN 04/02/18 [History] Amitriptyline [Elavil] 50 mg PO DAILY 04/02/18 [History] Atorvastatin [Lipitor] 40 mg PO DAILY 04/02/18 [History] Docosanol [Abreva] 1 appl TP BID 04/02/18 [History] Lurasidone HCl [Latuda] 60 mg PO DAILY 04/02/18 [History] Multivit with Calcium,Iron,Min [One Daily Women's] 1 tab PO DAILY 04/02/18 [History] Nitroglycerin 0.4 mg PO AD 04/02/18 [History] Lidocaine Patch [Lidoderm 5% patch] 1 each TP DAILY 14 Days #14 adh..patch 04/07/18 [Rx] PredniSONE [Deltasone] See Taper PO DAILY #20 tablet 04/07/18 [Rx] HYDROcodone/Acet 5/325 mg [[place] 5-325 mg] 1 tab PO Q6HR PRN 2 Days #8 tablet 04/09/18 [Rx] Allergies/Adverse Reactions: Allergy/AdvReac Type Severity Reaction Status Date / Time oxytetracycline Allergy Swelling Verified 04/02/18 21:40 [From Terramycin] of Lip/Tongue/Throat - Respiratory Orders Oxygen / L per min (3), Other (CPAP during night) Smoking Cessation: Smoking cessation has been advised. For more information, call the [place] Tobacco Quit Line at 9-639-IISV-NOW. - Advance Directives Code Status: Full Code - Rehabiliation Orders Rehab Orders: Evaluation for Physical Therapy, Evaluation for Occupational Therapy - Diet Orders Cardiac CERTIFICATION: I certify that the transfer of the above named patient to an Extended Care Faci lity is necessary for the continuing treatment of the diagnosis listed. The above information is true and accurate reflection of patient's current condition. Confidential - Redisclosure prohibited without a patient's written consent.
[2018-04-09] MEDS: levoFLOXacin 750 MG TABLET PO SCH (17:12)
[2018-04-09] MEDS: Ibuprofen 600 MG TABLET PO PRN (17:12)
[2018-04-09] MEDS: Melatonin 3 MG TABLET PO PRN (21:12)
[2018-04-09] MEDS: Lurasidone 20 MG TABLET PO SCH (21:12)
[2018-04-09] MEDS: traZODone 50 MG TABLET PO PRN (21:13)
[2018-04-10] MEDS: *HR* HYDROcodone/Acet 5/325 mg TABLET PO PRN ×3 (01:16→15:04)
[2018-04-10] MEDS: Ipratropium/Albuterol Neb 3 ML IH SCH ×3 (04:54→15:42)
[2018-04-10] MEDS: BuPROPion XL (24 HR) 150 MG TABLET PO SCH (08:55)
[2018-04-10] MEDS: lamoTRIgine 100 MG TABLET PO SCH (08:55)
[2018-04-10] MEDS: Loratadine 10 MG TABLET PO SCH (08:55)
[2018-04-10] MEDS: predniSONE 20 MG TABLET PO SCH (08:55)
[2018-04-10] MEDS: Aspirin Enteric Coated 81 MG Tablet PO SCH (08:56)
[2018-04-10] MEDS: Famotidine 20 MG TABLET PO SCH (08:56)
[2018-04-10] MEDS: Nystatin POWDER 30 GM BOTTLE TP SCH (08:56)
[2018-04-10] MEDS: Furosemide 20 MG TABLET PO SCH (08:56)
[2018-04-10 11:08] VITALS: BP 130/79
--- NOTE | 2018-04-10 14:33 | Internal Med Progress Note ---
Hospitalist Progress Note - Encounter Date of Encounter: 04/10/18 Time of Encounter: 09:00 - Subjective Interval History: Patient feels fine. SOB is at her baseline. Vitals are stable. Need [place] O2 at 3L /min which she also use at home. Will d/c to ECF on tapering down steroid today. Discharge summary is updated. Waiting for insurance approval. - Exam Vitals: Temp Pulse Resp BP Pulse Ox 98.2 F 86 18 130/79 95 04/10/18 11:06 04/10/18 11:06 04/10/18 11:06 04/10/18 11:06 04/10/18 11:06 Exam: General appearance: Present: A&O X 3, morbidly obese, pleasant, no acute distress Exam: see below - Head Head exam: Present: atraumatic, normocephalic - Eye Eye exam: Present: PERRL, conjuntiva pink, sclera anicteric Pupils: Present: PERRL - Neck Neck exam general surgery: Present: supple, trachea midline. Absent: lymphadenopathy - Respiratory Respiratory exam: Present: decreased breath sounds. Absent: rales, rhonchi, wheezes - Cardiovascular Cardiovascular exam: Present: RRR, +S1, +S2. Absent: diastolic murmur, gallop, rubs, systolic murmur - GI/Abdominal GI/Abdominal exam: Present: normal bowel sounds, soft, no peritoneal signs. Absent: distended, tenderness - Extremities Exam Extremities exam: Present: warm, radial pulses palpable and symmetrical. Absent: calf tenderness, cyanotic, pedal edema - Neurological Exam Neurological exam: Present: alert, CN II-XII intact, oriented X3, no focal deficits. Absent: pronater drift, facial droop, speech deficit - Skin Skin exam: Present: dry, intact - Assessment and Plan (1) Smoker Current Visit: Yes Status: Chronic Assessment and Plan: Encouraged cessation (2) Morbid obesity with BMI of 40.0-44.9, adult Current Visit: Yes Status: Chronic Assessment and Plan: Lifestyle modification such as diet and exercise recommended. (3) Diastolic heart failure Current Visit: Yes Status: Suspected Assessment and Plan: Appears euvolemic at this point. Continue home medications. Cont Fluid restriction diet (4) Acute exacerbation of chronic obstructive airways disease Current Visit: Yes Status: Acute Assessment and Plan: Continue steroids and Levaquin. Adding Duo neb scheduled and prn. Pulmonary function tests done on 04/2017 shows moderate airway restrictive disease. She uses CPAP QHS. Chest x-ray without infiltrates suggestive of pneumonia, CT angiogram negative for pulmonary embolism. Taper down steroid, PT/OT evaluation. (5) HTN (hypertension) Current Visit: Yes Status: Chronic Assessment and Plan: Metoprolol 25mg po bid. BP is stable. (6) HLD (hyperlipidemia) Current Visit: Yes Status: Chronic Assessment and Plan: On Atorvastatin (7) Chronic respiratory failure Current Visit: Yes Status: Chronic Assessment and Plan: Continue oxygen at home dose. CPAP QHS (8) Chronic back pain Current Visit: Yes Status: Acute Assessment and Plan: [place] prn and Lidoderm patch DVT Prophylaxis: subcutaneous heparin - Time Spent with Patient Total time spent is greater than 50% in coordination of care (as documented) at patient's floor/unit and/or counseling patient: 30 min 25 - 35 minutes Plan of Care Discussed with: patient Internal Medicine: Result - Labs CBC & Chem 7: 04/08/18 03:23 04/08/18 03:23 - ABG Interpretation ABG results: PT/INR, D-dimer D-Dimer 585 ng/mLFEU (0-500) H 04/02/18 13:55 Consult Discharge Plan - Plan Additional Instructions: Call [facility] if you need portable tanks delivered when you get home #[phone] Referrals: Itzel Jorgensen, PUBLIC WELFARE DIRECTOR [Primary Care Provider] - 04/15/18 2:30 pm () Prescriptions: HYDROcodone/Acet 5/325 mg [[place] 5-325 mg] 1 tab PO Q6HR PRN 2 Days #8 tablet PRN Reason: Moderate Pain Lidocaine Patch [Lidoderm 5% patch] 1 each TP DAILY 14 Days #14 adh..patch PredniSONE [Deltasone] See Taper PO DAILY #20 tablet (3) Diastolic heart failure Qualifiers: Heart failure chronicity: acute on chronic Qualified Code(s): I50.33 - Acute on chronic diastolic (congestive) heart failure (5) HTN (hypertension) Qualifiers: Hypertension type: essential hypertension Qualified Code(s): I10 - Essential (primary) hypertension (6) HLD (hyperlipidemia) Qualifiers: Hyperlipidemia type: unspecified Qualified Code(s): E78.5 - Hyperlipidemia, unspecified (7) Chronic respiratory failure Qualifiers: Respiratory failure complication: hypoxia Qualified Code(s): J96.11 - Chronic respiratory failure with hypoxia (8) Chronic back pain Qualifiers: Back pain location: low back pain Back pain laterality: midline Sciatica presence: without sciatica Qualified Code(s): M54.5 - Low back pain; G89.29 - Other chronic pain
== END 2018-04-10 15:53 | DRG 140 ==
LOC: EMEROOARM 13:05 → 3BNU 13:05 → SUATTDRO 04-05 16:45
PROVIDERS: ADMIT Internal Medicine; ATTEND Internal Medicine